=== PATIENT | female | born 1945 | race Caucasian/White ===

== ENCOUNTER 2017-01-21 11:02 | Outpatient (CLI) | payer MEDICARE ==
--- OUTSIDE RECORDS SUMMARY | 2017-01-21 11:09 | XMS | Clinical Summary ---
:1945 Author Organization [facility] Address [address] [place] [address] Phone Care Team Providers Name Role Phone , Primary Care Provider Unavailable Allergies Active Allergy Reactions Severity Noted Date Comments Vancomycin Analogues Hives High 06/19/2013 Valsartan 09/12/2014 Nsaids (Non-Steroidal 06/02/2013 History of decreased kidney Anti-Inflammatory Drug) function Current Medications Prescription Sig. Disp. Refills Start Date End Date Status amiodarone (PACERONE) Take 100 mg by Active 200 MG tablet mouth 2 (two) times daily . hydroxychloroquine Take by mouth 2 Active (PLAQUENIL) 200 mg (two) times daily. tablet pregabalin (LYRICA) 150 Take 150 mg by Active MG capsule mouth 2 (two) times daily. pantoprazole (PROTONIX) Take 40 mg by Active 40 MG tablet mouth 2 (two) times daily. topiramate (TOPAMAX) 25 Take 25 mg by Active MG tablet mouth 2 (two) times daily. DULoxetine (CYMBALTA) Take 60 mg by Active 60 MG capsule mouth nightly. albuterol, refill, 90 Inhale by mouth Active mcg/actuation Aero via inhaler. gabapentin (NEURONTIN) Take 600 mg by Active 600 MG tablet mouth 3 (three) times daily. clopidogrel (PLAVIX) 75 Take 75 mg by Active mg tablet mouth daily. promethazine Take 25 mg by Active (PHENERGAN) 25 MG mouth every 6 tablet (six) hours as needed for Nausea. cholestyramine, bulk, by Miscellaneous Active Powd route. temazepam (RESTORIL) 15 Take 1 capsule (15 30 capsule 0 05/29/2015 Active mg capsule mg total) by mouth every night as needed. ranolazine (RANEXA) 500 i po bid. 60 tablet 0 05/29/2015 Active MG 12 hr tablet linaclotide 145 mcg Cap Take 1 capsule 30 capsule 0 05/29/2015 Active (145 mcg total) by mouth every morning before breakfast. lamoTRIgine (LAMICTAL) 2 po bid. 120 tablet 0 05/29/2015 Active 25 MG tablet carvedilol (COREG) 12.5 Take 1 tablet 60 tablet 0 05/29/2015 Active MG tablet (12.5 mg total) by mouth 2 (two) times daily with breakfast and dinner. ALPRAZolam (XANAX) 1 MG Take 1 tablet (1 30 tablet 0 05/29/2015 Active tablet mg total) by mouth as needed for Anxiety. acetaZOLAMIDE (DIAMOX) Take 1 tablet (250 60 tablet 0 05/29/2015 Active 250 MG tablet mg total) by mouth 2 (two) times daily. DULoxetine (CYMBALTA) Take 1 capsule (30 30 tablet 2 08/20/2015 Active 30 MG capsule mg total) by mouth daily. azelastine (ASTEPRO) 2 sprays by Each 17 g 0 08/21/2015 Active 0.15 % (205.5 mcg) [place] Nare route 2 (two) times daily. 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 Lupus (systemic lupus erythematosus) ([facility]) Asthma CHF (congestive heart failure) ([facility]) MVP (mitral valve prolapse) TIA (transient ischemic attack) Overview: x 3 Hypertension Arthritis Chronic back pain DDD (degenerative disc disease) Encephalopathy Overview: every few years Migraines Peritonitis ([facility]) MRSA carrier Immunizations Name Dates Previously Given Next Due Influenza TIV (IM) 02/19/2014 Family History Medical History Relation Name Comments Hypertension Father Cancer Mother Hypertension Mother Stroke Mother Relation Name Status Comments Father Mother Social History Tobacco Use Types Packs/Day Years Used Date Never Smoker Smokeless Tobacco: Never Used Alcohol Use Drinks/Week oz/Week Comments No Sex Assigned at Date Recorded Not on file Last Filed Vital Signs Vital Sign Reading Time Taken Blood Pressure 150/94 08/21/2015 12:25 PM CDT Pulse 56 08/21/2015 12:25 PM CDT Temperature 36.3 C (97.3 F) 08/21/2015 12:25 PM CDT Respiratory Rate 18 08/21/2015 12:25 PM CDT Oxygen Saturation 98% 08/21/2015 12:25 PM CDT Inhaled Oxygen Concentration - - Weight 98.9 kg (218 lb) 08/21/2015 12:25 PM CDT Height 170.2 cm (5' 7") 08/21/2015 12:25 PM CDT Body Mass Index 34.14 08/21/2015 12:25 PM CDT Plan of Treatment Health Maintenance Due Date Last Done Comments INFLUENZA VACCINE 01/17/2017 Goals Patient Goal Type Goal Recent Progress Patient-Stated? Author Exercise Exercise 3x per week Not on No [place], (30 min per time) track(11/19/2014 Hardeep Shay MA High BMI Intervention ) and follow up (physical activity) Lifestyle Plan meals Not on No [place], High BMI Intervention track(11/19/2014 Hardeep Shay MA and Follow Up ) (nutrition) Implants Implanted Type Area Cheesemaker Helper Device Expiration Model / Identifier Date Serial / Lot Jeannette,#5 W/Needle - [id number] [place]/Ar ARTHREX [id number] / Implanted:Qty: 1 on 06/19/2013 throscopy / 2.9mm Juggerknot With Tapered [place] Fracture/ Right: [employer] [id number] / Implanted:Qty: 1 on 06/19/2013 by Campbell Gutierrez MD [employer] / [id number] Glenoid Baseplate,Rsp Hydroxyapatite-Coated 6.5x30mm - [id number] Joints Right : [employer] 04/18/2019 [id number] / Implanted:Qty: 1 on 06/19/2013 by Campbell Gutierrez MD Shoulder / [id number] Screw,Bone Glenoid Rsp Locking Baseplate 5.0x14mm - [id number] Joints Right: [employer] 05/18/2019 [id number] / Implanted:Qty: 1 on 06/19/2013 by Campbell Gutierrez MD Shoulder / [id number] Screw, Bone Glenoid Rsp Locking Baseplate 5.0x18mm Joints Right: [employer] 04/17/2019 506-03-118 / Implanted:Qty: 1 on 06/19/2013 by Campbell Gutierrez MD Shoulder / [id number] Screw, Bone Glenoid Rsp Locking Baseplate 5.0x18mm Joints Right: [employer] 06/16/2019 506-03-118 / Implanted:Qty: 1 on 06/19/2013 by Campbell Gutierrez MD Shoulder / [id number] Glenoid Head,Rsp W/Retaining Screw 32mm -4mm Offset - [id number] Joints Right: [employer] 06/16/2019 [id number] / Implanted:Qty: 1 on 06/19/2013 by Campbell Gutierrez MD Shoulder / [id number] Stem, Rsp Monoblock Size 8 Joints Right: 05/19/2019 [id number] / Implanted:Qty: 1 on 06/19/2013 by Campbell Gutierrez MD Shoulder / [id number] Hum Socket,Rsp Standard Insert 32mm - [id number] Joints Right: [employer] 05/19/2018 [id number] / Implanted:Qty: 1 on 06/19/2013 by Campbell Gutierrez MD Shoulder / [id number] Results Not on filefrom Last 3 Months
--- NOTE | 2017-01-21 12:49 | MMO ---
BILATERAL SCREENING MAMMOGRAMS: DATE: 01/21/17 Reference made to 05/13/15, 01/16/13, and 02/23/11 exams. This patient's mammogram was interpreted with the assistance of computer-aided detection. FINDINGS: There are scattered fibroglandular elements bilaterally. Partially imaged chest port of the posterio r left breast is present, obscuring detail in this region. There is benign-appearing calcification w ithin the breasts bilaterally. No new suspicious abnormalities are identified. IMPRESSION: BIRADS 2: Benign Finding(s) Annual screening mammography is recommended. POS: [facility]
== END 2017-01-21 11:03 | disposition home or self-care (01) ==
LOC: MAMMO 11:02
PROVIDERS: ATTEND Internal Medicine
DX: Z12.31 Encounter for screening mammogram for malignant neoplasm of breast (principal)
CPT/HCPCS: 77067; G0202

== ENCOUNTER 2017-02-18 09:49 | Outpatient (CLI) | payer MEDICARE ==
--- OUTSIDE RECORDS SUMMARY | 2017-02-18 10:43 | XMS | Clinical Summary ---
:1945 Author Organization [facility] Address [address] [place] [address] Phone Care Team Providers Name Role Phone [...] 0 08/21/2015 Active 0.15 % (205.5 mcg) [place] Nare route 2 (two) times daily. 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 Lupus (systemic lupus erythematosus) ([facility]) Asthma CHF (congestive heart failure) ([facility]) MVP (mitral valve prolapse) TIA (transient ischemic attack) Overview: x 3 Hypertension Arthritis Chronic back pain DDD (degenerative disc disease) Encephalopathy Overview: every few years Migraines Peritonitis ([facility]) MRSA carrier Immunizations Name Dates Previously Given [...] Exercise 3x per week Not on No [place], (30 min per time) track(11/19/2014 Hardeep Shay MA High BMI Intervention ) and follow up (physical activity) Lifestyle Plan meals Not on No [place], High BMI Intervention track(11/19/2014 Hardeep Shay MA and Follow Up ) (nutrition) Implants Implanted Type Area Prenatal Nurse Device Expiration Model / Identifier Date Serial / Lot Jeannette,#5 W/Needle - [id number] [place]/Ar [employer] [id number] / Implanted:Qty: 1 on 06/19/2013 throscopy / 2.9mm Juggerknot With Tapered [place] Fracture/ Right: [employer] [id number] / Implanted:Qty: 1 on 06/19/2013 by Campbell Gutierrez MD [employer] / [id number] Glenoid Baseplate,Rsp Hydroxyapatite-Coated 6.5x30mm - [id number] Joints Right : ORTHOPEDICS 04/18/2019 [id number] / Implanted:Qty: 1 on 06/19/2013 by Campbell Gutierrez MD Shoulder / [id number] Screw,Bone Glenoid Rsp Locking Baseplate 5.0x14mm - [id number] Joints Right: ORTH[employer] 05/18/2019 506-03-114 / Implanted:Qty: 1 on 06/19/2013 by Campbell Gutierrez MD Shoulder / [id number] Screw, Bone Glenoid Rsp Locking Baseplate 5.0x18mm Joints Right: ORTH[employer] 04/17/2019 506-03-118 / Implanted:Qty: 1 on 06/19/2013 by Campbell Gutierrez MD Shoulder / [id number] Screw, Bone Glenoid Rsp Locking Baseplate 5.0x18mm Joints Right: ORTH[employer] 06/16/2019 506-03-118 / Implanted:Qty: 1 on 06/19/2013 by Campbell Gutierrez MD Shoulder / [id number] Glenoid Head,Rsp W/Retaining Screw 32mm -4mm Offset - [id number] Joints Right: ORTHOPEDICS 06/16/2019 [id number] / Implanted:Qty: 1 on 06/19/2013 by Campbell Gutierrez MD Shoulder / [id number] Stem, Rsp Monoblock Size 8 Joints Right: 05/19/2019 510-00-008 / Implanted:Qty: 1 on 06/19/2013 by Campbell Gutierrez MD Shoulder / [id number] Hum Socket,Rsp Standard Insert 32mm - [id number] Joints Right: ORTHOPEDICS 05/19/2018 508-00-032 / Implanted:Qty: 1 on 06/19/2013 by Campbell Gutierrez MD Shoulder / [id number] Results Not on filefrom Last 3 Months
--- NOTE | 2017-02-18 12:16 | RAD ---
TWO VIEWS LUMBAR SPINE: 02/18/2017 HISTORY: Lumbar spondylolisthesis. Follow-up post-surgical changes. COMPARISON: 09/22/2016 FINDINGS: Again noted are post-surgical changes related to posterior fusion of the L4-5 level with bipedicular screws and posterior rods again transfixing this level. Intradiskal prosthesis is again noted in p lace and unchanged. There is persistent grade II anterolisthesis of L4 and L5, unchanged from prior study. There is irregularity and sclerosis involving the superior endplate of the L2 vertebral body which i s a stable finding and may be related to degenerative changes and possibly prominent Schmorl's node as opposed to a mild compression fracture. The remaining vertebral body heights are within normal l imits. No additional level of subluxation is seen. Laminectomy defect is again seen at the L4-5 le jacquelyn. Multiple metallic densities overlie the abdomen and pelvis related to prior post-surgical change. IMPRESSION: 1. Stable post-surgical changes at L4-5 level related to posterior fusion with stable grade II anter olisthesis of L4 and L5. No hardware complication is appreciated. 2. Stable degenerative changes of the lumbar spine. POS: [facility]
== END 2017-02-18 09:50 | disposition home or self-care (01) ==
LOC: TBSIIMAG 09:49
PROVIDERS: ATTEND Neurological Surgery
DX: M43.16 Spondylolisthesis, lumbar region (principal); M47.896 Other spondylosis, lumbar region; Z98.1 Arthrodesis status; I50.33 Acute on chronic diastolic (congestive) heart failure; I34.0 Nonrheumatic mitral (valve) insufficiency
CPT/HCPCS: 36415; 72100; 80053; 84443

== ENCOUNTER 2017-03-15 12:24 | Outpatient (CLI) | payer MEDICARE ==
[~2017-03-15 12:24] MED LIST: Iopamidol 370 76% 100 ML VIAL ONE
--- NOTE | 2017-03-15 18:56 | CT ---
CT ABDOMEN WITH AND WITHOUT IV CONTRAST: 03/15/2017 HISTORY: Follow-up right adrenal mass. COMPARISON: 04/06/2016. FINDINGS: Again noted is a right adrenal mass, unchanged in size, measuring approximately 2.5 cm. This demonst rates an attenuation coefficient on the noncontrasted images most compatible with an adrenal adenoma. Post-cholecystectomy changes are noted with mild intrahepatic biliary ductal dilatation likely relate d to the post-cholecystectomy changes. There are subcentimeter scattered hypodense lesions seen within each lobe of the liver, some of which measure slightly larger in size than on the prior study, but the majority of these measure less than 1 cm and may represent tiny cysts. There are stable subcentimeter too small to characterize hypodense lesions again seen in each kidney. The spleen, pancreas, and left adrenal gland demonstrate a normal nonenhanced CT appearance. The heart is mildly enlarged. There is minimal bibasilar atelectasis. There are metallic densities in the anterior aspect of the abdomen likely related to mesh material fr om prior surgery. An area of scarring is again seen in the right anterolateral aspect of the abdomen , also seen on prior exam. Vascular calcifications are present. Post-surgical changes of the spine are again noted. There has been no other interval change from prior study. IMPRESSION: 1. Stable right adrenal adenoma. 2. Subcentimeter, too small to characterize, hypodense lesions in each lobe of the liver, the majorit y of which are stable in size. A few of these low-density lesions are slightly larger in size, but a gain measure less than 1 cm. 3. Stable subcentimeter, too small to characterize, hypodense lesions in each kidney which statistica lly likely represent tiny cysts. 4. Post-cholecystectomy changes. 5. Cardiomegaly. POS: [facility]
== END 2017-03-15 12:25 | disposition home or self-care (01) ==
LOC: CT 12:24
PROVIDERS: ATTEND Urology
DX: E27.9 Disorder of adrenal gland, unspecified (principal); I51.7 Cardiomegaly; D35.01 Benign neoplasm of right adrenal gland; Z90.49 Acquired absence of other specified parts of digestive tract
CPT/HCPCS: 74170

== ENCOUNTER 2017-07-12 12:54 | Outpatient (CLI) | payer MEDICARE ==
[2017-07-12] MEDS ORDERED: Gadobenate Dimeglumine 529 MG/1 ML (20ML VIAL) ONE (14:36)
--- NOTE | 2017-07-12 18:12 | MRI ---
MRI OF BRAIN WITH AND WITHOUT CONTRAST: Date: 07/12/17 INDICATION: History of headaches and hydrocephalus. COMPARISON: None. CONTRAST: 20 mL MultiHance. FINDINGS: No area of restricted diffusion is seen to suggest the presence of acute ischemia. There is mild chronic small vessel white matter ischemic change. There is mild generalized cerebral a trophy. Septum pellucidum and third ventricle are midline. No hydrocephalus is grossly evident. There are appropriate flow-voids within the major intracranial vessels. Skull and extracranial soft tissue s appear within normal limits. IMPRESSION: 1. No acute intracranial abnormality demonstrated. 2. Mild chronic small vessel white matter ischemic change. 3. Mild generalized cerebral atrophy. POS: [facility]
== END 2017-07-12 12:55 | disposition home or self-care (01) ==
LOC: MRI 12:54
PROVIDERS: ATTEND Internal Medicine
DX: G91.9 Hydrocephalus, unspecified (principal); G31.9 Degenerative disease of nervous system, unspecified
CPT/HCPCS: 70553; 87077; 87086; 87186; A9579

== ENCOUNTER 2017-07-26 12:05 | Outpatient (CLI) | payer MEDICARE ==
[2017-07-26] MEDS ORDERED: Iopamidol 300 61% 30 ML VIAL ONE (13:00)
[2017-07-26] MEDS ORDERED: EPINEPHrine 1 MG/ML AMP ONE (13:00)
[2017-07-26] MEDS ORDERED: Lidocaine 1% PF 10 ML AMP ONE (13:00)
[2017-07-26] MEDS ORDERED: Sodium Chloride 0.9% 50 ML BAG ONE (13:00)
--- NOTE | 2017-07-26 16:01 | CT ---
CT ARTHROGRAM OF LEFT SHOULDER: Date: 07/26/17 INDICATION: 71-year-old female with left shoulder pain. TECHNIQUE: Multiple CT images were obtained of the left shoulder following interarticular administration of a di lute Gadolinium solution. Please see the left shoulder arthrogram for details concerning injection te chnique. FINDINGS: There is a left total shoulder prosthesis in place. The glenoid resurfacing prosthetic component appe ars in place. There is a full thickness, partial width tear involving the cranial and mid aspect of t he subscapularis. There is also a tear involving the anterior supraspinatus with contrast seen extend ing into the subacromial/subdeltoid space. There is moderate muscular atrophy of the supraspinatus. T here is moderate to severe muscular atrophy of the subscapularis. There is mild AC joint osteoarthros is. Long head of the biceps tendon is not seen and may be disrupted or resected. No acute fracture is demonstrated. There is a left subclavian chest wall port. No enlarged lymph nodes are evident. The v isualized left lung is clear. The visualized anterior band of the inferior glenoid labral ligamentous complex appears intact on image 64 of the coronal series. IMPRESSION: 1. Full thickness tear of the anterior to mid subscapularis at the footprint. There is likely tear e xtension into the anterior supraspinatus. There is moderate supraspinatus and subscapularis muscular atrophy. 2. Mild AC joint osteoarthrosis. 3. Left total shoulder prosthesis. POS: [facility]
--- NOTE | 2017-07-26 16:02 | RAD ---
LEFT SHOULDER ARTHROGRAM: INDICATIONS: Left shoulder pain. TECHNIQUE: Informed consent was obtained. Pre-procedure director of manufacturing images were performed of the left shoulder joint. The site overlying the left shoulder was marked. The site was prepped and draped in the usual ster ile fashion. Buffered 1% Lidocaine was administered to the overlying subcutaneous tissue. Under flu oroscopic guidance, a 22 gauge spinal needle was guided down into the joint, with administration of a pproximately 8 mL of a diluted Omnipaque solution. The patient tolerated the procedure without diffi culty. FINDINGS: There was a left total shoulder prosthesis in place. No acute fracture or subluxation was evident. There was mild left AC joint osteoarthrosis. The visualized left lung was clear. There was slight p osterior subluxation of the left shoulder on the axillary Y projection. IMPRESSION: 1. Successful left shoulder arthrogram. 2. Slight posterior subluxation of the left shoulder on the axillary Y projection. 3. Mild left acromioclavicular joint osteoarthrosis. POS: [facility]
== END 2017-07-26 12:06 | disposition home or self-care (01) ==
LOC: RAD 12:05
PROVIDERS: ATTEND Orthopaedic Surgery
DX: M25.512 Pain in left shoulder (principal); M19.012 Primary osteoarthritis, left shoulder
CPT/HCPCS: 23350; J0171; J7050

== ENCOUNTER 2017-12-03 12:47 | Outpatient (CLI) | payer MEDICARE ==
[2017-12-03 15:15] LABS: Hemoglobin 12.1 g/dL (12.0-16.0); Mean Corpuscular HGB CONC 31.7 g/dL (32.0-36.0); Mean Corpuscular Hemoglobin 29.2 pg (27.0-31.0); Mean Corpuscular Volume 92.1 fL (78.0-98.0); Mean Platelet Volume 8.2 fL (7.4-10.4); Platelet Count 180 thou/uL (130-400); RBC Distribution Width 13.7 % (11.5-14.5); Red Blood Cell (RBC) Count 4.14 mill/uL (4.20-5.40); White Blood Cell (WBC) Count 5.4 thou/uL (4.8-10.8)
[2017-12-03 15:22] LABS: Bilirubin Small (Negative); Blood, Urine Negative (Negative); Clarity TURBID (Clear); Glucose, Urine (Dipstick) Negative (Negative); Leukocyte Large (Negative); Nitrite Negative (Negative); Protein, Urine (Dipstick) 30 mg/dL (Neg-Trace); Specific Gravity, Urine 1.025 (1.002-1.036); pH, Urine 5.5 (5.0-9.0)
[2017-12-03 15:24] LABS: Bacteria/HPF 4+ HPF (None Seen)
[2017-12-03 15:28] LABS: Pathc Cast-AUWi Flag 16.62 (0-2.49)
[2017-12-03 15:35] LABS: Anion Gap 11 mmol/L (10-20); BUN (Urea Nitrogen) 15 mg/dL (9.8-20.1); CRP (Inflammatory) 1.15 mg/dL (= or < 0.5); Calc. Creatinine Clearance 0 mL/min (70-130); Carbon Dioxide 20 mmol/L (23-31); Chloride 114 mmol/L (98-107); Estimated GFR-MDRD 59; Glucose 89 mg/dL (83-110); Potassium 3.4 mmol/L (3.5-5.1); Sodium 142 mmol/L (136-145)
[2017-12-03 15:36] LABS: RBC/HPF None Seen HPF (0-3)
[2017-12-03 15:37] LABS: Hyaline Casts/LPF 0-3 HYALINE CAST LPF (0-3 Hyaline); Manual Microscopic Reviewed? No Path Casts Seen
--- NOTE | 2017-12-04 05:17 | EKG ---
Test Reason : Blood Pressure : / mmHG Vent. Rate : 063 BPM Atrial Rate : 063 BPM P-R Int : 186 ms QRS Dur : 080 ms QT Int : 424 ms P-R-T Axes : 075 011 002 degrees QTc Int : 433 ms Sinus rhythm with Premature atrial complexes Minimal voltage criteria for LVH, may be normal variant Inferior infarct , age undetermined possibly with Q's Lead III and aVF, but doubtful. Cannot rule out Anterior infarct , age undetermined Abnormal ECG When compared with ECG of 17-DEC-2016 06:32, Premature atrial complexes are now Present Inferior infarct is now Present Nonspecific T wave abnormality now evident in Anterior leads Confirmed by ARDEN PARADA ([id number]) on 12/04/2017 5:16:35 AM Referred By: EMY Confirmed By:ARDEN PARADA
== END 2017-12-03 12:48 | disposition home or self-care (01) ==
LOC: LABBT 12:47
PROVIDERS: ATTEND Orthopaedic Surgery
DX: Z01.818 Encounter for other preprocedural examination (principal); T84.098A Other mechanical complication of other internal joint prosthesis, initial encounter
CPT/HCPCS: 80048; 81001; 85027; 85652; 86140; 86850; 86900; 86901; 87081; 93005; 93010

== ENCOUNTER 2017-12-03 13:15 | Inpatient (IN) | payer MEDICARE ==
[2017-12-03 13:28] VITALS: BMI 33.6
[2017-12-07] MEDS ORDERED: Midazolam HCl 2 mg/2 ml Vial ONE (06:19)
[2017-12-07] MEDS ORDERED: Lidocaine 1% (PF) 30 ML VIAL ONE (06:19)
[2017-12-07] MEDS ORDERED: Ropivacaine 0.2% HCl/PF 20 ML ONE (06:19)
[2017-12-07] MEDS ORDERED: Fentanyl 100 MCG/2 ML VIAL ONE ×2 (06:19→06:58)
[2017-12-07] MEDS ORDERED: Levofloxacin 500 mg/D5W 100 ml Premix Bag ONE (06:36)
[2017-12-07] MEDS ORDERED: CEFAZOLIN/Water 2 GM/20 ML SYRINGE ONE (06:36)
[2017-12-07] MEDS ORDERED: Sodium Chloride 0.9% 100 ML ONE (06:36)
[2017-12-07] MEDS ORDERED: Vancomycin HCl 1.5 GM in Sodium Chloride 0.9% 250 ML 300 ML IVPB SCH ×2 (06:45→20:00)
[2017-12-07] MEDS ORDERED: Ondansetron HCl/PF 4 MG/2 ML Vial IVP PRN ×3 (07:01→10:53)
[2017-12-07] MEDS ORDERED: PHENYLEPHRINE-NS 100 MCG/ML 10 ML SYRINGE ONE ×2 (07:33→14:42)
[2017-12-07] MEDS ORDERED: Phenylephrine HCL 10 MG/ML VIAL ONE (07:35)
[2017-12-07] MEDS ORDERED: HYDROcodone/Acetaminophen 10/325 mg Tablet PO PRN ×4 (07:45→10:53)
[2017-12-07] MEDS ORDERED: Zolpidem Tartrate 5 MG TAB PO PRN (07:45)
[2017-12-07] MEDS ORDERED: Ropivacaine HCl/PF 1,100 MG in Sodium Chloride 0.9% 440 ML NERVE BLCK SCH (07:45)
[2017-12-07] MEDS ORDERED: traMADol HCl 50 MG TAB PO PRN ×4 (07:45→10:53)
[2017-12-07] MEDS ORDERED: Promethazine HCl 25 MG/ML VIAL IM PRN (07:45)
[2017-12-07] MEDS ORDERED: Fentanyl 100 MCG/2 ML VIAL IV PRN (07:46)
[2017-12-07] MEDS ORDERED: Ropivacaine 0.2% 550 ML 550 ML NERVE BLCK SCH (09:34)
--- NOTE | 2017-12-07 10:03 | OP ---
DATE OF PROCEDURE: 12/07/2017 PREOPERATIVE DIAGNOSES: Right total shoulder arthroplasty with rotator cuff tear, status post fall. POSTOPERATIVE DIAGNOSES: Right total shoulder arthroplasty with rotator cuff tear, status post fall. PROCEDURE PERFORMED: Revision reverse total shoulder arthroplasty, both components humerus and glenoid. STAFF: Raymond Barrow M.D. DUST COLLECTOR TREATER: Ricky Yuan PA-C ANESTHESIA: The patient received a general intubation with interscalene block. ESTIMATED BLOOD LOSS: 100 mL. TOURNIQUET TIME: None. IMPLANTS: A threaded 25 mm baseplate with a 30 mm post, Tornier a 4 locking screws, 29, 20, 32 and 20 respectively. A 36 mm +2 eccentric glenosphere and + 0 high offset tray and a 6 mm C poly. COMPLICATIONS: None. HISTORY OF PRESENT ILLNESS: Ms. Fisher is a pleasant 72-year-old female who had a total shoulder arthroplasty in 04/2016. The patient was doing well until she fell on her shoulder in 08/2016. The pain was waking her up at night. She had a CT scan showing a tear of her rotator cuff and I had discussed with the patient the risks and benefits of a revision total shoulder arthroplasty to reverse shoulder arthroplasty. I discussed the risks and benefits of surgery to include pain, scar, bleeding, infection, damage to vital structures, decreased range of motion or strength, nonunion, malunion, and loss of life or limb. The patient understood these risks and benefits and elected to proceed. PROCEDURE IN DETAIL: Timeout was performed designating the patient's left upper extremity as the operative site based on sight, consents, markings. After completion of timeout, the patient's left upper extremity was prepped and draped in sterile fashion. The patient was placed in a beach chair position. She had a little bit of low blood pressures during the procedure. We positioned her into place. We made our subacromial, we set our deltopectoral incision through the previous scar incision down through skin, followed the scar plane down, could not distinguish a very good deltopectoral interval, but went through what appeared to be the scar plane, created an interval, came down, found the conjoint medially, came down on the head, saw the torn subscapularis, removed the sutures from it. We came down bluntly over the humerus to create a subdeltoid space. We removed some of the subscap. The biceps was cut from its insertion, removed all of its osteophytes. We exposed the humeral head. We then used a tuning fork to knock the humeral head off, the stem appeared stable. We then exposed our glenoid component. We used a small osteotome to cut the glenoid component to lever the glenoid component. I had to cut through the single baseplate, but otherwise 3 of the pegs were out. We removed the center peg of the glenoid by overdrilling it. We then drilled our hole for our baseplate, drilled and measured about 26 and placed a 30 mm baseplate. I felt like I had good overall fixation with our angle, measured about 28 and we placed a 30 mm baseplate. We screwed it down, had nice firm stable fixation with a 30 baseplate. We then placed screws, 4 locking screws anterior, posterior, superior and inferiorly trying to stay away from the inferior aspect. We washed. We placed 2 mm offset glenosphere which set flush on the bone. I liked the overall alignment, had good external fixation. We then moved back to the humerus. We cleaned off the stem. We trialed with a high offset tray with a 6 point position, I and 6 mm C poly and it reduced well. I liked the overall alignment, had no shucking, good stability. We removed all the excess implants. We then reduced the shoulder into place and placed our final implants and hammered in the [place] taper, placed our poly and reduced, had a good overall stability. We then closed deltopectoral interval with 0 Vicryl, 2-0 subcu and sakina. The patient will be admitted for 24 hours of antibiotics. She will continue her ciprofloxacin given her current UTI. She will be followed. She can be discharged likely home tomorrow, remain in a sling. Elbow, wrist, and hand motion only, no shoulder motion until I release her. [facility]
--- NOTE | 2017-12-07 10:09 | RAD ---
LEFT SHOULDER 2 VIEWS: HISTORY: Shoulder replacement. FINDINGS: Reverse prosthesis in place without perihardware lucency. Skin sakina. Osseous structures are karne neralized. IMPRESSION: Left shoulder prosthesis in good radiographic position. POS: [facility]
[2017-12-07] MEDS ORDERED: Bisacodyl 10 MG SUPP PR PRN (10:53)
[2017-12-07] MEDS ORDERED: Ondansetron ODT 4 MG TAB PO PRN (10:53)
[2017-12-07] MEDS ORDERED: Acetaminophen 325 MG TAB PO PRN (10:53)
[2017-12-07] MEDS ORDERED: diphenhydrAMINE 50 MG CAP PO PRN (10:53)
[2017-12-07] MEDS ORDERED: Methocarbamol 1 GM/10 ML VIAL SLOW IVP PRN (10:53)
[2017-12-07] MEDS ORDERED: Milk Of Magnesia 30 ML UDCUP PO PRN (10:53)
[2017-12-07] MEDS ORDERED: Methocarbamol 500 MG TAB PO PRN (10:53)
[2017-12-07] MEDS ORDERED: Opium Tincture 10% (1ml Charge) PO PRN (11:56)
[2017-12-07] MEDS ORDERED: Cyanocobalamin 1000 MCG/ML VIAL IM SCH (12:00)
[2017-12-07] MEDS ORDERED: Ropivacaine 0.5% HCl/PF (150 MG/30 ML VIAL) ONE (13:11)
[2017-12-07] MEDS ORDERED: Lidocaine 1% PF 5 ML VIAL ONE (14:42)
[2017-12-07] MEDS ORDERED: Calcium Chloride 1 GM/10 ML Abboject SYRINGE ONE (14:42)
[2017-12-07] MEDS ORDERED: Glycopyrrolate 0.2 MG/ML 5 ML SYRINGE ONE (14:42)
[2017-12-07] MEDS ORDERED: PROPOFOL 200 MG/20 ML VIAL ONE (14:42)
[2017-12-07] MEDS ORDERED: Ondansetron HCl/PF 4 MG/2 ML Vial ONE (14:42)
[2017-12-07] MEDS ORDERED: ePHEDrine/0.9% NaCl/PF SYRINGE 50 mg/10 ml ONE (14:42)
[2017-12-07] MEDS: CEFAZOLIN/Water 2 GM/20 ML SYRINGE SLOW IVP SCH ×2 (15:26→21:29)
[2017-12-07] MEDS: Dextrose 5 %-0.45 % NaCl 1,000 ML IV SCH (15:32)
[2017-12-07] MEDS: Ciprofloxacin 500 MG TAB PO SCH (20:31)
[2017-12-07] MEDS: AcetaZOLAMIDE 250 MG TAB PO SCH (20:32)
[2017-12-07] MEDS: Carvedilol 6.25 MG TAB PO SCH (20:32)
[2017-12-07] MEDS: Hydroxychloroquine Sulfate 200 MG TAB PO SCH (20:33)
[2017-12-07] MEDS: Pregabalin 75 MG CAP PO SCH (20:34)
[2017-12-07] MEDS: Topiramate 25 MG TAB PO SCH (20:35)
[2017-12-07] MEDS ORDERED: DULoxetine 60 MG CAP PO SCH (21:00)
[2017-12-08] MEDS: Dextrose 5 %-0.45 % NaCl 1,000 ML IV SCH (04:06)
[2017-12-08] MEDS: Ciprofloxacin 500 MG TAB PO SCH (05:48)
[2017-12-08 08:20] VITALS: BP 108/72
[2017-12-08] MEDS: Carvedilol 6.25 MG TAB PO SCH (08:58)
[2017-12-08] MEDS: Pregabalin 75 MG CAP PO SCH (08:58)
[2017-12-08] MEDS: Hydroxychloroquine Sulfate 200 MG TAB PO SCH (08:59)
[2017-12-08] MEDS: AcetaZOLAMIDE 250 MG TAB PO SCH (08:59)
[2017-12-08] MEDS: Topiramate 25 MG TAB PO SCH (08:59)
[2017-12-08] MEDS ORDERED: DULoxetine 30 MG CAP PO SCH (09:00)
[2017-12-08] MEDS ORDERED: Lisinopril 2.5 MG TAB PO SCH (09:00)
[2017-12-08] MEDS ORDERED: Clopidogrel Bisulfate 75 MG TAB PO SCH (09:00)
[2017-12-08 10:57] VITALS: TEMP 98.3
--- NOTE | 2017-12-10 15:00 | EKG ---
Test Reason : POST OP Blood Pressure : / mmHG Vent. Rate : 076 BPM Atrial Rate : 076 BPM P-R Int : 176 ms QRS Dur : 074 ms QT Int : 402 ms P-R-T Axes : 081 011 030 degrees QTc Int : 452 ms Normal sinus rhythm Normal ECG When compared with ECG of 03-DEC-2017 14:36, Premature atrial complexes are no longer Present Criteria for Inferior infarct are no longer Present Nonspecific T wave abnormality has replaced inverted T waves in Inferior leads T wave amplitude has decreased in Lateral leads Confirmed by SATHISH LINN MD ([id number]) on 12/10/2017 3:00:10 PM Referred By: ROSA Confirmed By:SATHISH LINN MD
== END 2017-12-08 14:01 | disposition home or self-care (01) | DRG 483 ==
LOC: SURG A 12-07 05:39 → SJJU 12-07 10:50 → EDSTATUS 12-07 13:15
PROVIDERS: ADMIT Orthopaedic Surgery; ATTEND Orthopaedic Surgery
PROC: 0RRJ0JZ Replacement of Right Shoulder Joint with Synthetic Substitute, Open Approach (ICD-10-PCS; principal; 2017-12-07)
PROC: 0RPJ0JZ Removal of Synthetic Substitute from Right Shoulder Joint, Open Approach (ICD-10-PCS; 2017-12-07)
DX: S46.011A Strain of muscle(s) and tendon(s) of the rotator cuff of right shoulder, initial encounter (principal); Z96.612 Presence of left artificial shoulder joint; W19.XXXA Unspecified fall, initial encounter
CPT/HCPCS: 93005; 93010; A4306; C1713; G8978-GP-CI; G8979-GP-CI; G8980-GP-CI; G8984-GO-CJ; G8985-GO-CJ; G8986-GO-CJ; J1956; J2001; J2250; J2370; J2405; J2704; J2795; J3010; J3370; J7050

== ENCOUNTER 2018-04-07 10:28 | Outpatient (CLI) | payer MEDICARE ==
--- NOTE | 2018-04-07 12:38 | ULT ---
RIGHT UPPER QUADRANT ULTRASOUND: HISTORY: Transaminitis. FINDINGS: The liver demonstrate a homogeneous echotexture without focal mass. There is mild intrahepatic bilia ry ductal dilatation. The common duct measures 7 mm in diameter. Prominent biliary ducts in the che er are also seen on the CT scan of 03/15/2017 and are likely due to reservoir effect. The pancreas i s not well visualized due to overlying bowel gas. There is a prominent right extrarenal pelvis. No free fluid is seen in the [place] pouch. The right adrenal mass is seen, which corresponds to the a denoma on the CT scan of 03/15/2017. IMPRESSION: Status post cholecystectomy with mild intrahepatic biliary ductal dilatation, likely due to reservoir effect. POS: [facility]
== END 2018-04-07 10:29 | disposition home or self-care (01) ==
LOC: BICULT 10:28
PROVIDERS: ATTEND Internal Medicine
DX: R74.0 Nonspecific elevation of levels of transaminase and lactic acid dehydrogenase [LDH] (principal); K83.8 Other specified diseases of biliary tract; Z90.49 Acquired absence of other specified parts of digestive tract
CPT/HCPCS: 76705

== ENCOUNTER 2018-05-02 12:39 | Outpatient (CLI) | payer MEDICARE | END 2018-05-02 12:40 | disposition home or self-care (01) | LOC: BICMAMMO 12:39 | PROVIDERS: ATTEND Internal Medicine | DX: Z12.31 Encounter for screening mammogram for malignant neoplasm of breast (principal); N64.89 Other specified disorders of breast; R92.1 Mammographic calcification found on diagnostic imaging of breast; Z80.3 Family history of malignant neoplasm of breast | CPT/HCPCS: 77063; 77067 ==

== ENCOUNTER 2018-05-04 12:37 | Outpatient (CLI) | payer MEDICARE ==
--- NOTE | 2018-05-04 15:16 | ULT ---
LEFT BREAST ULTRASOUND: HISTORY: The patient presents for a left breast ultrasound to further evaluate an asymmetric density seen in t he inner aspect of the left breast. In the 9 o'clock region of the left breast approximately 6 cm from the nipple, there is a small 0.2 x 0.6 cm somewhat poorly defined hyperechoic focus. I do not think that this corresponds to the mammo graphic finding. Hyperechoic foci within the breast are benign. There were also some slightly dilat ed veins in this region of the left breast. The asymmetric density in the left breast actually appea red to be less prominent on the diagnostic imaging exams done today compared to the initial screening study of 05/02/2018. It is not seen at all on the mediolateral view and poorly seen on the MLO view. IMPRESSION: BIRADS category 3 - probably benign findings. Asymmetric density seen primarily on the CC view in th e left breast inner aspect not seen at all on the ML view, poorly seen on the MLO view. Given its ap pearance on mammogram and the lack of significant abnormal findings on ultrasound study in this regio n, 6-month followup left unilateral diagnostic mammogram is recommended. An ultrasound exam should b e scheduled at the same time and performed if needed. Findings were discussed with the patient who was in agreement with proceeding to 6-month short-term s urveillance followup. CODE CR POS: OFF
== END 2018-05-04 12:38 | disposition home or self-care (01) ==
LOC: BICMAMMO 12:37
PROVIDERS: ATTEND Internal Medicine
DX: R92.2 Inconclusive mammogram (principal); N64.89 Other specified disorders of breast; Z80.3 Family history of malignant neoplasm of breast
CPT/HCPCS: 76642; 77065; G0279

== ENCOUNTER 2018-05-25 13:15 | Outpatient (CLI) | payer MEDICARE ==
--- NOTE | 2018-05-25 15:54 | CT ---
CT OF ABDOMEN AND PELVIS PERFORMED WITH INTRAVENOUS CONTRAST ENHANCEMENT: History: Chronic diarrhea. Right lower quadrant pain. Comparison: 03-15-17 FINDINGS: The lung bases are clear of infiltrates. Some linear scarring is present. Stable hypodensities within the liver are again demonstrated. The spleen and pancreas regions are unremarkable. The gallbladder has been removed. A 2.5 cm stable right adrenal mass, most likely an adenoma. Left adrenal gland is normal. Right and l eft kidneys are normal in size. Both kidneys have somewhat prominent extrarenal pelves but this a sta ble finding. There is no significant periaortic or mesenteric adenopathy. Post-operative changes with mesh related to a ventral hernia repair are noted. There is some mild dilatation to some of the more distal small bowel. This is more in the distal ileum region although there is some narrowing to the ileum right at the ileocecal valve. I cannot exclude this being a very short segment area of strictur e narrowing. This dilatation is a different appearance than has been seen on previous exams. I do not appreciate any wall thickening associated with this. The more proximal small bowel does not appear s ignificantly dilated. No free fluid seen within the pelvis. No significant adenopathy or mass. IMPRESSION: 1. Stable right adrenal adenoma. 2. Stable hepatic cyst. 3. Post-operative changes of the anterior abdominal wall which appears to be related to ventral herni a repair. 4. There is some mild dilatation of the distal ileum to the level of the ileocecal valve. There is no bowel wall thickening associated with this. I do not see a definitive stricture although there could be a short segment stricture to the terminal ileum directly at the level of the ileocecal valve to e xplain this finding. It is also possible that this transitory in nature. POS: [facility]
== END 2018-05-25 13:16 | disposition home or self-care (01) ==
LOC: BICCT 13:15
PROVIDERS: ATTEND Internal Medicine Gastroenterology
DX: D12.6 Benign neoplasm of colon, unspecified (principal); R10.31 Right lower quadrant pain; R94.5 Abnormal results of liver function studies; K52.9 Noninfective gastroenteritis and colitis, unspecified; D35.01 Benign neoplasm of right adrenal gland; K76.89 Other specified diseases of liver; K59.8 Other specified functional intestinal disorders; Z98.890 Other specified postprocedural states
CPT/HCPCS: 74177; 81001; 87077; 87086; 87186; Q9967

== ENCOUNTER 2018-07-11 14:06 | Outpatient (CLI) | payer MEDICARE ==
[~2018-07-11 14:06] MED LIST changes: +Gadobenate Dimeglumine 529 MG/1 ML (20ML VIAL) ONE; -Iopamidol 370 76% 100 ML VIAL ONE
--- NOTE | 2018-07-11 17:07 | MRI ---
MRI BRAIN WITH AND WITHOUT CONTRAST: Technique: Multiplanar, multisequence MRI images were obtained of the brain. Post contrast images wer e also obtained after administrating IV MultiHance. Indications: Headache, memory loss. FINDINGS: The ventricles have normal size and position. There are mild chronic ischemic white matter changes. N o evidence of restricted diffusion. No evidence of mass or edema. No abnormal enhancement. IMPRESSION: 1. Mild chronic ischemic white matter change. 2. Otherwise no acute process. POS: MIK[facility]
== END 2018-07-11 14:07 | disposition home or self-care (01) ==
LOC: SCSMRI 14:06
PROVIDERS: ATTEND Nurse Practitioner Acute Care
DX: R51 Headache (principal); I67.82 Cerebral ischemia
CPT/HCPCS: 70553; 82565; A9577

== ENCOUNTER 2018-10-05 15:29 | Outpatient (CLI) | payer MEDICARE ==
--- NOTE | 2018-10-05 16:06 | RAD ---
CERVICAL SPINE 3 VIEWS: HISTORY: Neck pain. FINDINGS: Multilevel degenerative changes are present. No fracture, subluxation, or bony destruction is identi fied. IMPRESSION: Cervical spondylosis. POS: MIK[facility]LA
== END 2018-10-05 15:30 | disposition home or self-care (01) ==
LOC: BICRAD 15:29
PROVIDERS: ATTEND Internal Medicine
DX: M54.2 Cervicalgia (principal); M47.812 Spondylosis without myelopathy or radiculopathy, cervical region
CPT/HCPCS: 72040; 87086

== ENCOUNTER 2018-10-14 13:29 | Outpatient (CLI) | payer MEDICARE ==
--- NOTE | 2018-10-14 15:39 | MRI ---
CERVICAL SPINE MRI WITHOUT CONTRAST: 10/14/18 HISTORY: Neck pain with left sided radiculopathy, x3 weeks. Left shoulder pain. COMPARISON: None. FINDINGS: Appropriate T1 marrow signal intensity of the cervical vertebrae. Cervical spine vertebral body heigh t is maintained. No fracture. No significant STIR hyperintensity to suggest vertebral body edema or l igamentous injury. The visualized brain parenchyma, cervicomedullary junction, cervical cord and the upper thoracic cord have a normal size and signal intensity. Sagittal T2 and STIR images demonstrate a hyperintense focus in the right neural foramen at T1-T2. Th ere is T1 marrow signal hypointensity. Possibility of a perineural sleeve cyst is raised. There is a similar finding at the right T2-T3 neural foramen. The visualized brain parenchyma, cervicomedullary junction, cervical cord and the upper thoracic cord have a normal size and signal intensity. C2-C3: No significant central canal stenosis. Neural foramina are patent. C3-C4: Broad based disc bulge with a left paracentral component. No significant central canal stenosi s. Right neural foramen is patent. Mild left foraminal narrowing due to uncovertebral hypertrophy. C4-C5: Broad based disc osteophyte complex abuts the thecal sac. Ventral subarachnoid space is efface d. There is deformity of the cervical cord, without cord hyperintensity. Moderate central canal steno sis. Degenerative changes in the bilateral uncovertebral joints results in moderate to severe bilater al foraminal narrowing. C5-C6: There is a broad based disc osteophyte complex which effaces the subarachnoid space. There is mass effect upon the left hemicord. Mild to moderate central canal stenosis. No cord hyperintensity. Mild to moderate right foraminal narrowing. Moderate to severe left foraminal narrowing. C6-C7: Broad based disc osteophyte complex with a left paracentral component. Mild central canal sten osis. Minimal deformity of the cervical cord, without hyperintensity in the cord. Mild right and mild to moderate left foraminal narrowing. C7-T1: No significant central canal stenosis. Neural foramina are patent. IMPRESSION: Degenerative changes in the cervical spine as detailed above. POS: [facility]
== END 2018-10-14 13:30 | disposition home or self-care (01) ==
LOC: BICMRI 13:29
PROVIDERS: ATTEND Internal Medicine
DX: M47.22 Other spondylosis with radiculopathy, cervical region (principal)
CPT/HCPCS: 72141; 87086

== ENCOUNTER 2018-12-27 10:25 | Outpatient (CLI) | payer MEDICARE ==
--- NOTE | 2018-12-27 11:35 | MMO ---
Left Breast MAMMO Unilat Diag DDI LT+MAGDALENA. CLINICAL HISTORY: Patient is 73 years old and is seen for diagnostic exam. The patient has the following family history of breast cancer: mother, at age 86. The patient has no personal history of cancer. VIEWS: The views performed were: left craniocaudal with tomosynthesis; left mediolateral oblique with tomosynthesis; and left mediolateral with tomosynthesis. FILMS COMPARED: The present examination has been compared to prior imaging studies performed at [facility] on 05/02/2018, 05/04/2018 and 12/27/2018. MAMMOGRAM FINDINGS: There are scattered fibroglandular densities. There is a stable equal density focal asymmetry measuring 6 millimeters seen in the middle region of the left breast at 9 o'clock. Additional attempt was made to locate the lesion by sonogram which proved unfruitful. IMPRESSION: STABLE FOCAL ASYMMETRY IN THE LEFT BREAST IS PROBABLY BENIGN. FOLLOW-UP IN 6 MONTHS IS RECOMMENDED. PATIENT WILL BE DUE FOR BILATERAL DIAGNOSTIC MAMMOGRAM IN APR 2019. ULTRASOUND OF THE LEFT BREAST IS NOT RECOMMENDED NO SONOGRAPHIC CORRELATE FOR THIS LESION COULD BE FOUND ON TODAY'S EXAM AND ON THE INITAL DIAGNOSTIC EVALUATION IN APR 2018. THE FINDINGS AND RECOMMENDATIONS WERE DISCUSSED WITH THE PATIENT PRIOR TO HER LEAVING THE CENTER. THE RESULTS OF THIS EXAM WERE SENT TO THE PATIENT. ACR BI-RADS Category 3 - Probably benign finding - short interval follow-up suggested. [facility] will notify the patient of the need for additional imaging services. MAMMOGRAPHY NOTE: 1. A negative mammogram report should not delay a biopsy if a dominant of clinically suspicious mass is present. 2. Approximately 10% to 15% of breast cancers are not detected by mammography. 3. Adenosis and dense breasts may obscure an underlying neoplasm. Reported by: CACHORRO GRANDE MD Electonically Signed: [id number]
--- NOTE | 2018-12-27 13:34 | ULT ---
LEFT BREAST DIAGNOSTIC ULTRASOUND: 12/27/18 INDICATION: BI-RADS 3 follow-up for a focal asymmetry in the left breast 9 o'clock position. COMPARISON: Prior left breast diagnostic ultrasound dated 05/04/18. FINDINGS: No suspicious sonographic abnormality is seen within the region of focal asymmetry in the left breast 9 o'clock position. IMPRESSION: No suspicious sonographic abnormality seen within the region of focal asymmetry left breast 9 o'clock position. Please see the diagnostic mammographic report from 12/27/18 for further detail. POS: OFF
== END 2018-12-27 10:26 | disposition home or self-care (01) ==
LOC: BICMAMMO 10:25
PROVIDERS: ATTEND Internal Medicine
DX: R92.8 Other abnormal and inconclusive findings on diagnostic imaging of breast (principal); N64.89 Other specified disorders of breast
CPT/HCPCS: 76642; 77065; G0279

== ENCOUNTER 2019-02-25 10:40 | Emergency (ER) | payer MEDICARE ==
[2019-02-25 11:57] LABS: Bacteria/HPF 1+ HPF (None Seen); Bilirubin Negative (Negative); Blood, Urine Negative (Negative); Clarity Clear (Clear); Glucose, Urine (Dipstick) Normal (Negative); Leukocyte 250 Leu/uL (Negative); Nitrite 1+ (Negative); Protein, Urine (Dipstick) Negative (Neg-Trace); RBC/HPF 0-3 HPF (0-3); Urobilinogen Normal mg/dL (Less than 2)
[2019-02-25 12:48] LABS: #Basophils 0.1 thou/uL (0.0-0.2); #Eosinphils 0.2 thou/uL (0.0-0.7); #Lymphocytes 1.2 thou/uL (1.20-3.40); #Monocytes 0.4 thou/uL (0.11-0.59); #Neutrophils 4.6 thou/uL (1.40-6.50); %Basophils 1.1 % (0.0-1.0); %Eosinophils 3.4 % (0.0-10.0); %Monocytes 6.5 % (0.0-10.0); %Neutrophils 71.1 % (42.0-75.0); Hemoglobin 10.8 g/dL (12.0-16.0); Mean Corpuscular HGB CONC 31.1 g/dL (32.0-36.0); Mean Corpuscular Hemoglobin 28.3 pg (27.0-31.0); Mean Corpuscular Volume 90.9 fL (78.0-98.0); Mean Platelet Volume 7.8 fL (7.4-10.4); Platelet Count 288 thou/uL (130-400); RBC Distribution Width 14.8 % (11.5-14.5); Red Blood Cell (RBC) Count 3.81 mill/uL (4.20-5.40); White Blood Cell (WBC) Count 6.5 thou/uL (4.8-10.8)
[2019-02-25 13:09] LABS: ALT (SGPT) 12 U/L (8-55); AST (SGOT) 19 U/L (5-34); Albumin 3.2 g/dL (3.4-4.8); Alkaline Phosphatase 98 U/L (40-110); Anion Gap 12 mmol/L (10-20); BUN (Urea Nitrogen) 10 mg/dL (9.8-20.1); Bilirubin, Total 0.2 mg/dL (0.2-1.2); Calc. Creatinine Clearance 0 mL/min (70-130); Calcium 8.9 mg/dL (7.8-10.44); Carbon Dioxide 23 mmol/L (23-31); Chloride 109 mmol/L (98-107); Estimated GFR-MDRD 64; Globulin 3.4 g/dL (2.4-3.5); Glucose 84 mg/dL (83-110); Potassium 4.3 mmol/L (3.5-5.1); Protein, Total 6.6 g/dL (6.0-8.3); Sodium 140 mmol/L (136-145)
[2019-02-25] MEDS ORDERED: cefTRIAXone\\ROCEPHIN 2 GM VIAL ONE (13:46)
--- NOTE | 2019-02-25 14:56 | CT ---
EXAM: Abdomen and pelvic CT scan with contrast: HISTORY: Abdominal pain recent anterior abdominal wall surgery COMPARISON: 05/25/2018 FINDINGS: The visualized lung bases are clear. Liver: Stable liver cysts. Gallbladder:Status post cholecystectomy. Pancreas:Unremarkable Spleen:Unremarkable. Adrenal glands:Stable right adrenal mass probably an adenoma. Kidneys:No renal calculus or acute obstruction. Stable bilateral renal parapelvic cysts. Laminectomy changes posterior fusion and pedicle screw placement at L4-L5 with associated stable ante rolisthesis. No evidence for bowel obstruction. No CT evidence for acute appendicitis. The urinary bladder contains a fairly large amount of air and is not distended. Recent postsurgical changes involving the anterior abdominal wall with some midline subcutaneous flui d and air including a slightly more focal collection at the level the umbilicus superficially measuring 2.0 transversely, 3.8 cm in anterior posterior dimension and 5.6 cm in craniocaudal dimensi on evidence for postop fluid collection. Reproductive system:Unremarkable No abscess, adenopathy, or abnormal fluid collection within the abdomen or pelvis. IMPRESSION: Recent postop changes involving the anterior abdominal wall with some subcutaneous air and fluid incl uding a 2 x 3.8 x 5.6 cm superficial subcutaneous fluid collection.
[2019-02-25] MEDS ORDERED: Iopamidol-370 76% 500 ML 1 ML ONE (16:41)
== END 2019-02-25 16:45 | disposition home or self-care (01) ==
LOC: ERS 10:40
DX: L76.22 Postprocedural hemorrhage of skin and subcutaneous tissue following other procedure (principal); I11.0 Hypertensive heart disease with heart failure; I50.9 Heart failure, unspecified; F32.9 Major depressive disorder, single episode, unspecified; Z79.899 Other long term (current) drug therapy; Z86.73 Personal history of transient ischemic attack (TIA), and cerebral infarction without residual deficits
CPT/HCPCS: 74177; 80053; 81003; 81015; 83605; 85025; 86140; 96365; J0696; Q9967

== ENCOUNTER 2019-05-18 12:57 | Outpatient (CLI) | payer MEDICARE ==
--- NOTE | 2019-05-18 15:50 | MMO ---
Bilateral MAMMO Bilat Diag DDI+MAGDALENA. CLINICAL HISTORY: Patient is 73 years old and is seen for diagnostic exam. The patient has the following family history of breast cancer: mother, at age 86. The patient has no personal history of cancer. VIEWS: The views performed were: bilateral craniocaudal with tomosynthesis; bilateral mediolateral oblique with tomosynthesis; and bilateral mediolateral with tomosynthesis. FILMS COMPARED: The present examination has been compared to prior imaging studies performed at [facility] on 12/27/2018 and 05/18/2019. This study has been interpreted with the assistance of computer-aided detection. MAMMOGRAM FINDINGS: There are scattered fibroglandular densities. Finding 1: There is a stable oval mass measuring 4 millimeters with circumscribed margins seen in the left breast. Finding 2: There are stable benign appearing calcifications seen in both breasts. Finding 3: There is a round mass measuring 3 millimeters with circumscribed margins seen in the inner region of the right breast. 3 mm cicumscribed hyperechoic focus. There are no suspicious masses, suspicious calcifications, or new areas of architectural distortion. IMPRESSION: THERE IS NO MAMMOGRAPHIC EVIDENCE OF MALIGNANCY. A ROUTINE FOLLOW-UP MAMMOGRAM IN 1 YEAR IS RECOMMENDED. THE RESULTS OF THIS EXAM WERE SENT TO THE PATIENT. ACR BI-RADS Category 2 - Benign finding MAMMOGRAPHY NOTE: 1. A negative mammogram report should not delay a biopsy if a dominant of clinically suspicious mass is present. 2. Approximately 10% to 15% of breast cancers are not detected by mammography. 3. Adenosis and dense breasts may obscure an underlying neoplasm. Reported by: SAMINA DUMONT MD Electonically Signed: [id number]
--- NOTE | 2019-05-18 16:08 | ULT ---
LIMITED RIGHT BREAST ULTRASOUND: FINDINGS: Circumscribed nodule in the right breast at 4 o'clock, very superficial in location, is evaluated wit h ultrasound. In the right breast, at 4 o'clock, 8 cm from the nipple, there is a circumscribed, hype rechoic nodular focus, measuring 0.2 cm in size, which appears to correspond to the mammographic abno rmality. Echogenic foci within the breast are benign. By mammogram, this density may have slightly in creased from 0.2 cm to 0.3 cm from the prior study. I still feel that this is benign. IMPRESSION: BI-RADS category 2 - benign findings. One year follow-up examination is suggested with consideration for diagnostic images and possibly fol low-up right breast ultrasound examination at that time. POS: OFF
--- NOTE | 2019-05-18 16:16 | ULT ---
EXAM: LEFT BREAST ULTRASOUND: 05/18/19 Patient returns for diagnostic mammogram as well as left breast ultrasound to evaluate a mammographic finding at 9 o'clock in the left breast. The left breast is evaluated at 9 o'clock 4 cm from the nipple. There is a somewhat poorly defined h yperechoic focus in the left breast which appears to be somewhat less elongated than seen on the prio r study. The mammographic finding is circumscribed and elongated and is stable and has a benign appea makayla. IMPRESSION: Small hyperechoic focus in the left breast 9 o'clock 4 cm from the nipple probably corresponding to t he stable circumscribed elongated area of abnormality in the left breast on diagnostic mammogram stab le from prior exam dating back to 05/04/18. BIRADS 2: Benign Finding(s) Routine annual screening mammography (for women over age 40) One year follow-up mammogram is recommended. POS: OFF
== END 2019-05-18 12:58 | disposition home or self-care (01) ==
LOC: BICMAMMO 12:57
PROVIDERS: ATTEND Internal Medicine
DX: R92.8 Other abnormal and inconclusive findings on diagnostic imaging of breast (principal)
CPT/HCPCS: 76642 ×2; 77066; G0279

== ENCOUNTER 2019-06-16 11:56 | Inpatient (IN) | payer MEDICARE ==
[2019-06-16 12:55] LABS: #Eosinphils 0.2 thou/uL (0.0-0.7); #Lymphocytes 0.5 thou/uL (1.20-3.40); #Monocytes 0.5 thou/uL (0.11-0.59); #Neutrophils 8.7 thou/uL (1.40-6.50); %Basophils 0.2 % (0.0-1.0); %Eosinophils 1.5 % (0.0-10.0); %Lymphocytes 5.4 % (21.0-51.0); %Monocytes 4.7 % (0.0-10.0); %Neutrophils 88.2 % (42.0-75.0); Hemoglobin 13.1 g/dL (12.0-16.0); Mean Corpuscular HGB CONC 32.6 g/dL (32.0-36.0); Mean Corpuscular Volume 85.8 fL (78.0-98.0); Platelet Count 169 thou/uL (130-400); Red Blood Cell (RBC) Count 4.69 mill/uL (4.20-5.40); White Blood Cell (WBC) Count 9.8 thou/uL (4.8-10.8)
[2019-06-16 13:19] LABS: ALT (SGPT) 14 U/L (8-55); AST (SGOT) 13 U/L (5-34); Albumin 3.7 g/dL (3.4-4.8); Alkaline Phosphatase 111 U/L (40-110); Anion Gap 10 mmol/L (10-20); BUN (Urea Nitrogen) 14 mg/dL (9.8-20.1); Bilirubin, Total 0.5 mg/dL (0.2-1.2); Calc. Creatinine Clearance 0 mL/min (70-130); Calcium 9.1 mg/dL (7.8-10.44); Carbon Dioxide 23 mmol/L (23-31); Chloride 105 mmol/L (98-107); Estimated GFR-MDRD 49; Globulin 3.4 g/dL (2.4-3.5); Glucose 116 mg/dL (83-110); Potassium 3.4 mmol/L (3.5-5.1); Protein, Total 7.1 g/dL (6.0-8.3); Sodium 135 mmol/L (136-145)
--- NOTE | 2019-06-16 14:03 | RAD ---
PORTABLE CHEST ONE VIEW: 06/16/19 at 12:47 p.m. HISTORY: Atrial fibrillation. FINDINGS/IMPRESSION: Comparison is made with exam of 06/24/16. The heart size is enlarged. The aorta is tortuous. There is a left sided Port=A-Cath again seen. No lobar consolidation, pneumothoraces, kiana pulmonary edema or large effusions identified. Postop lozano ges of bilateral shoulder arthroplasty are again noted. POS: OFF
[2019-06-16] MEDS ORDERED: methylPREDNISolone Sod Succ/PF 125 MG/2 ML VIAL ONE (15:40)
[2019-06-16] MEDS ORDERED: cefTRIAXone\\ROCEPHIN 2 GM VIAL ONE (15:55)
[2019-06-16 16:23] LABS: Troponin I 0.014 ng/mL (< 0.028)
[2019-06-16] MEDS ORDERED: Senokot S 8.6-50 MG TAB PO PRN (16:23)
[2019-06-16] MEDS ORDERED: Enoxaparin Sodium 100 MG/ML SYRINGE ONE (16:25)
[2019-06-16] MEDS ORDERED: Sodium Chloride 0.9% 1,000 ML IV SCH (16:30)
[2019-06-16] MEDS ORDERED: Ipratropium Bromide 2.5 ml Neb NEB PRN (16:53)
[2019-06-16 16:56] LABS: Bacteria/HPF 4+ HPF (None Seen); Bilirubin Negative (Negative); Blood, Urine 2+ (Negative); Clarity Clear (Clear); Glucose, Urine (Dipstick) Normal (Negative); Leukocyte 250 Leu/uL (Negative); Nitrite 1+ (Negative); Protein, Urine (Dipstick) Negative (Neg-Trace); Squamous Epithelial 0-3 HPF (0-3); Urobilinogen Normal mg/dL (Less than 2); WBC/HPF Greater than 50 HPF (0-3)
[2019-06-16] MEDS: Ipratropium Bromide 2.5 ml Neb NEB SCH (18:34)
[2019-06-16 19:07] LABS: Troponin I 0.015 ng/mL (< 0.028)
--- NOTE | 2019-06-16 19:19 | HP ---
CHIEF COMPLAINT: Shortness of breath. HISTORY OF PRESENT ILLNESS: The patient is a very pleasant 73-year-old female with a history of irregular pulse and history of lupus, currently in remission, presents to the hospital from her PCP's office for shortness of breath, chest tightness. The patient states that for the past last month, she has been having worsening shortness of breath on exertion; for the past week, that has worsened. She has also had paroxysmal nocturnal dyspnea. She denies any orthopnea. She uses 2 pillows to sleep at night. She states that she has been feeling very tired for the past month, which has progressively gotten worse. The patient states that for the past couple of days, she has been having some wheezing. At this point, she went to her primary care doctor. The patient also states that she has been having some cough with some yellow sputum, however, no fevers that she has noted off. The patient states that she has been taking Plavix for the past 3 weeks. Today, she was at her primary care doctor's office and noted to have atrial fibrillation with rapid ventricular response, heart rate was in the 110s and given her symptoms of tightness and shortness of breath, she was asked to come into the hospital. She also states that she has been having some chest tightness that has been going on for the past month. PAST MEDICAL HISTORY: 1. She has a history of lupus. She has been given Cytoxan and Plaquenil. She has been off therapy for the past 2 years. 2. She has history of mitral valve prolapse, irregular heartbeat, not sure that is atrial fibrillation. 3. Fibromyalgia. 4. Hydrocephalus. 5. Hypertension. 6. TIAs. 7. Macular degeneration. PAST SURGICAL HISTORY: She has had a cholecystectomy x2, colon resection. She has had appendectomy. She has had a hysterectomy. She has had bilateral shoulder replacement. She has had a bladder mesh in 1982, removed in 2019. SOCIAL HISTORY: She denies any alcohol use, drug use, or smoking history. She is a full code. Lives with her . Her occupation, she said she has worked various jobs. No exposure to any source of chemicals according to her. REVIEW OF SYSTEMS: All negative except for the ones mentioned above in the HPI. FAMILY HISTORY: No history of heart disease or stroke. Her EKG indicated atrial fibrillation, heart rate was . PHYSICAL EXAMINATION: VITAL SIGNS: Temperature of 98.2, respirations 16, blood pressure 155/97, pulse 103, 94% on room air. GENERAL: She is awake, alert, and oriented x3. Does not appear in distress. She is able to speak complete sentences. HEENT: She appears mildly dehydrated. Her oral mucosa appears to be dry. CV: Irregularly irregular. No murmurs heard throughout auscultating her heart. LUNGS: She has significant mild rhonchi all over, bilateral upper and bilateral lower with some mild expiratory wheezing. ABDOMEN: Soft and nontender. Bowel sounds are present x2. She has a mid abdominal scar. She does have a small crust around the scar area which constantly drained; however, there is no erythema that is noted around it. EXTREMITIES: No edema. Pedal pulses are present x2. NEUROLOGICAL: No focal deficits noted. SKIN: No cuts, lesions, or bruises noted. LABORATORY RESULTS: Her troponin x1 was negative. Her x-ray just indicated the heart is enlarged and no lobar consolidations or pulmonary edema has been notified. TSH was 1.3, normal. BNP was 239. Troponin as I mentioned x1 was negative. Her sodium was 135, potassium of 3.4, BUN of 14, creatinine of 1.09. Her glucose was 116. Her alkaline phosphatase is mildly elevated at 111. Her WBCs are 9.8, hemoglobin of 13.1, hematocrit of 40.3, her platelets are 169. She clinically appears dehydrated. ASSESSMENT AND PLAN: The patient is a very pleasant 73-year-old female, presents to the hospital with shortness of breath. 1. Shortness of breath. This could be pulmonary versus cardiac causing her to have shortness of breath versus infectious. The patient has a history of Plaquenil. On her physical examination, her lungs sound had significant coarse rhonchi throughout. She has no history of smoking. She has no secondhand smoking. No chemical exposure. The only thing that she has been exposed to is Cytoxan and she has had a history of lupus and according to her, she is in remission and this is per her home assessment nurse. I would like to go ahead and get a CTA of her chest or CT high-resolution to get a better view of her lungs. I will also get Pulmonary since she is supposed to see Pulmonary, however, has not been able to get an appointment with them. In regard to her lungs, her shortness of breath could also be secondary to her atrial fibrillation. I will initially get Cardiology to see her, but she may require Electrophysiology. I will also get an echocardiogram. She recently had a cardiac cath about 2-3 weeks ago, I was notified by the ER physician. Her cardiac cath, indicated no intervention and recommendation was medical management. I do not have the cardiac cath to read the report. We will also start her on Lovenox given CHADs-VASC score. She is on Plavix; however, she does not have any stents. She cannot have aspirin, she is allergic to aspirin, so I will go ahead and just give her the Lovenox. Cardiology has been consulted. 2. Urinary tract infection. Her UA at her doctor's office indicated positive nitrites. We will treat her with Rocephin. We will continue to monitor. 3. History of hypertension. We will continue her home medications. 4. Deep vein thrombosis prophylaxis. The patient is already on the Lovenox. 5. Mild dehydration. We will hydrate her for overnight and we will go ahead and do a CT of her chest in the morning. Job ID: [id number]
[2019-06-16] MEDS ORDERED: Metoprolol Tartrate 5 MG/5 ML VIAL IVP SCH (19:45)
[2019-06-16] MEDS: Famotidine/PF 20 mg/2ml Vial SLOW IVP SCH (20:06)
[2019-06-16] MEDS: Carvedilol 25 MG TAB PO SCH (20:06)
[2019-06-16] MEDS ORDERED: Opium Tincture 10% (1ml Charge) PO SCH (22:00)
[2019-06-17] MEDS: Ipratropium Bromide 2.5 ml Neb NEB SCH ×4 (00:20→18:47)
[2019-06-17 04:46] LABS: #Lymphocytes 0.5 thou/uL (1.20-3.40); #Monocytes 0.1 thou/uL (0.11-0.59); #Neutrophils 6.2 thou/uL (1.40-6.50); %Basophils 0.1 % (0.0-1.0); %Eosinophils 0.3 % (0.0-10.0); %Lymphocytes 7.8 % (21.0-51.0); %Monocytes 1.5 % (0.0-10.0); %Neutrophils 90.4 % (42.0-75.0); Hemoglobin 12.6 g/dL (12.0-16.0); Mean Corpuscular HGB CONC 31.8 g/dL (32.0-36.0); Mean Corpuscular Hemoglobin 27.2 pg (27.0-31.0); Mean Corpuscular Volume 85.7 fL (78.0-98.0); Mean Platelet Volume 9.4 fL (7.4-10.4); Platelet Count 134 thou/uL (130-400); Red Blood Cell (RBC) Count 4.63 mill/uL (4.20-5.40); White Blood Cell (WBC) Count 6.8 thou/uL (4.8-10.8)
[2019-06-17 04:47] LABS: Anion Gap 15 mmol/L (10-20); BUN (Urea Nitrogen) 14 mg/dL (9.8-20.1); Calc. Creatinine Clearance 88 mL/min (70-130); Calcium 8.4 mg/dL (7.8-10.44); Carbon Dioxide 17 mmol/L (23-31); Chloride 110 mmol/L (98-107); Estimated GFR-MDRD 67; Glucose 154 mg/dL (83-110); Potassium 4.3 mmol/L (3.5-5.1); Sodium 138 mmol/L (136-145)
[2019-06-17] MEDS: Famotidine/PF 20 mg/2ml Vial SLOW IVP SCH (08:38)
[2019-06-17] MEDS: DULoxetine 30 MG CAP PO SCH (08:39)
[2019-06-17] MEDS: Carvedilol 25 MG TAB PO SCH ×2 (08:39→20:02)
[2019-06-17] MEDS: Cholestyramine/Aspartame 4 gm Packet PO SCH (08:40)
[2019-06-17] MEDS: Enoxaparin Sodium 100 MG/ML SYRINGE SC SCH ×2 (08:40→21:34)
[2019-06-17] MEDS: Opium Tincture 10% (1ml Charge) PO SCH ×2 (08:41→21:34)
[2019-06-17] MEDS: Topiramate 25 MG TAB PO SCH ×2 (09:48→21:34)
[2019-06-17] MEDS: Pregabalin 75 MG CAP PO SCH ×2 (09:49→21:34)
[2019-06-17] MEDS ORDERED: methylPREDNISolone Sod Succ 40 MG VIAL IVP SCH (12:00)
[2019-06-17] MEDS: cefTRIAXone\\ROCEPHIN 1 GM in Sodium Chloride 0.9% 100 ML IVPB SCH (15:39)
--- NOTE | 2019-06-17 16:14 | PDOC.HOSPP ---
- Subjective Encounter Date: 06/17/19 Encounter Time: 10:15 Subjective: pt up in bed still has some sob - Objective Vital Signs & Weight: Vital Signs (12 hours) Temp Pulse Resp BP Pulse Ox 06/17/19 15:44 97.6 F 94 13 181/93 H 94 L 06/17/19 12:27 80 16 06/17/19 11:37 97.6 F 88 20 146/88 H 98 06/17/19 07:30 97.4 F L 88 12 145/82 H 98 06/17/19 07:18 87 16 Weight Admit Weight 203 lb 6.4 oz Weight 203 lb 6.4 oz I&O: 06/16/19 06/17/19 06/18/19 06:59 06:59 06:59 Intake Total 960 Balance 960 Result Diagrams: 06/17/19 04:23 06/17/19 04:23 Hospitalist ROS - Review of Systems Respiratory: reports: shortness of breath Cardiovascular: denies: chest pain, palpitations, orthopnea, paroxysmal noc. dyspnea, edema, light headedness, other Gastrointestinal: denies: nausea, vomiting, abdominal pain, diarrhea, constipation, melena, hematochezia, other Genitourinary: denies: dysuria, frequency, incontinence, hematuria, retention, other - Medication Medications: Active Medications Generic Name Dose Route Start Last Admin Trade Name Freq PRN Reason Stop Dose Admin Carvedilol 12.5 mg 06/16/19 21:00 06/17/19 08:39 Coreg PO 12.5 mg BID NATHANAEL Administration Cholestyramine Resin 4 gm 06/17/19 10:00 06/17/19 08:40 Questran Light PO 4 gm 1000 NATHANAEL Administration Diltiazem HCl 30 mg 06/17/19 11:30 06/17/19 12:24 Cardizem PO 30 mg ACHS NATHANAEL Administration Duloxetine HCl 30 mg 06/17/19 09:00 06/17/19 08:39 Cymbalta PO 30 mg DAILY NATHANAEL Administration Enoxaparin Sodium 90 mg 06/17/19 09:00 06/17/19 08:40 Lovenox SC 90 mg 0900,2100 NATHANAEL Administration Famotidine 20 mg 06/16/19 21:00 06/17/19 08:38 Pepcid SLOW IVP 20 mg Q12HR NATHANAEL Administration Ceftriaxone Sodium 1 gm/ 100 mls @ 200 mls/hr 06/17/19 16:30 06/17/19 15:39 Sodium Chloride IVPB 100 mls Q24HR NATHANAEL Administration Ipratropium [place] 2.5 ml 06/16/19 19:00 06/17/19 12:27 Atrovent NEB 2.5 ml [id number] NATHANAEL Administration Methylprednisolone Sodium Succinate 40 mg 06/17/19 12:00 06/17/19 12:25 Solu-Medrol IVP 40 mg 1200 NATHANAEL Administration Opium Tincture 0.6 ml 06/17/19 09:00 06/17/19 08:41 Opium Tincture 10% PO 0.6 ml BID NATHANAEL Administration Pregabalin 150 mg 06/17/19 09:00 06/17/19 09:49 Lyrica PO 150 mg BID NATHANAEL Administration Topiramate 25 mg 06/17/19 09:00 06/17/19 09:48 Topamax PO 25 mg BID NATHANAEL Administration - Exam Neck: negative: supple, symmetric, no JVD, no thyromegaly, no lymphadenopathy, no carotid bruit, JVD Heart: negative: RRR, no murmur, no gallops, no rubs, normal peripheral pulses, irregular, diminshed peripheral pulses, murmur present, II/IV, III/IV Respiratory: rales, rhonchi. negative: CTAB, no wheezes, no rales, no ronchi, normal chest expansion, no tachypnea, normal percussion, tachypneic, wheezes Gastrointestinal: negative: soft, non-tender, non-distended, normal bowel sounds , no palpable masses, no hepatomegaly, no splenomegaly, no bruit, no guarding, no rigidity, tender to palpation, distended, diminished bowl sounds, voluntary guarding Hosp A/P (1) UTI (urinary tract infection) Status: Acute Qualifiers: Urinary tract infection type: acute cystitis Hematuria presence: without hematuria Qualified Code(s): N30.00 - Acute cystitis without hematuria (2) CAD (coronary artery disease) Code(s): I25.10 - ATHSCL HEART DISEASE OF [place] CORONARY ARTERY W/O ANG PCTRS Status: Chronic Qualifiers: Coronary Disease-Associated Artery/Lesion type: [place] artery [place] vs. transplanted heart: [place] heart (3) Hypertension Code(s): I10 - ESSENTIAL (PRIMARY) HYPERTENSION Status: Chronic Qualifiers: Hypertension type: essential hypertension Qualified Code(s): I10 - Essential (primary) hypertension (4) Lupus Code(s): M32.9 - SYSTEMIC LUPUS ERYTHEMATOSUS, UNSPECIFIED Status: Chronic (5) Obesity (BMI 30.0-34.9) Code(s): E66.9 - OBESITY, UNSPECIFIED Status: Chronic (6) Atrial fibrillation with RVR Code(s): I48.91 - UNSPECIFIED ATRIAL FIBRILLATION Status: Acute - Plan will talk with pulmonary to see if we need a ct with high resolution vs ct with contrast. echo done. she still is in afib will start her on Cardizem. she is on [facility] cardiology to see pt as well as pulmonary. will give her one dose of digoxin.
[2019-06-17] MEDS ORDERED: Digoxin 0.5 MG/2 ML AMP SLOW IVP SCH ×2 (18:00→19:30)
[2019-06-17] MEDS ORDERED: Amlodipine 5 MG TAB PO SCH (19:30)
[2019-06-17] MEDS: Famotidine 20 MG TAB PO SCH (21:34)
[2019-06-17] MEDS: hydrALAZINE 20 MG/ML VIAL SLOW IVP PRN (22:28)
--- NOTE | 2019-06-17 22:47 | CON ---
DATE OF CONSULTATION: PRIMARY CARE DOCTOR: Eli Gtz MD PRIMARY FOOD AND BEVERAGE COORDINATOR: Silverio Palma MD REASON FOR CARDIOLOGY CONSULTATION: New onset atrial fibrillation with rapid ventricular response. HISTORY OF PRESENT ILLNESS: Ms. Fisher is a very present 73-year-old female with a significant history of lupus, remission for 2 to 3 years, fibromyalgia, hypertension, TIA in 1999, chronic diarrhea secondary to cholecystectomy, and chronic diastolic heart failure. She had complained of shortness of breath and fatigue for at least 2 months. She underwent a cardiac catheterization in May 23, 2019, which shows 30% to 50% stenosis in the LAD. However, she continued having shortness of breath, she was referred to the fiberglass boat assembly supervisor. At this moment, she has not followed up with them. Her first appointment is in June. The patient's shortness of breath is getting worse. Due to the reason the patient followup with the patient's primary care doctor yesterday and the patient was found to have atrial fibrillation with rapid ventricular response, the patient was instructed to present to the emergency department for further evaluation and treatment. Besides chronic fatigue and shortness of breath, she denied any chest pain, heaviness, tightness, dizziness, lightheadedness, or any other cardiac complaints except that she fell yesterday due to feeling very weak right before she visited her primary care doctor. She has had an indigestion in her stomach for a few months also. The patient underwent cardiac catheterization on May 23, 2019, with 30% to 50% stenosis in LAD. The patient had an echocardiogram done today with EF 60% to 65% with grade 1 diastolic dysfunction, mildly enlarged right ventricle, and moderate to severe dilated , mild mitral valve regurgitation, moderate tricuspid regurgitation, and mild pulmonic regurgitation. PAST MEDICAL HISTORY: Lupus, the patient has been in remission with Cytoxan and Plaquenil; macular degeneration with injection twice a month; fibromyalgia; hypertension; TIA in 1999; migraine with Botox injection; and chronic diarrhea. PAST SURGICAL HISTORY: 1. Cardiac cath on May [address] Palma. 2. Cataract. 3. Appendectomy. 4. Total hysterectomy. 5. Cholecystectomy. 6. Bladder suspension in . Mesh was removed in November 2018 due to frequent UTI. 7. Bilateral shoulder surgery and back surgery. FAMILY HISTORY: The patient's father due to MA. Actually, the patient noted that he had MA twice. The patient's brother due to myocardial infarction at the age of 4949 years old. He also has history of cardiomyopathy and hypertension. SOCIAL HISTORY: She is . She is living with her . She has children who are living well. The patient denies ETOH, tobacco, or illicit drug abuse. She does not exercise due to the history of lupus, fibromyalgia, and back pain. ALLERGIES: PLEASE REFER TO THE PATIENT'S MEDICAL RECORD. HOME MEDICATIONS: 1. Diamox 250 mg 2 tablets twice a day. 2. Carvedilol 12.5 mg twice a day. 3. Cymbalta 60 mg once a day. 4. Lyrica 150 mg twice a day. 5. Protonix 40 mg twice a day. 6. for chronic diarrhea. 7. Cymbalta 30 mg at daytime. 8. Plavix 75 mg every other day. 9. Lisinopril 2.5 mg once a day. 10. Topamax 25 mg twice a day. 11. Vitamin B12 100 mcg IM every 14 days. 12. Ventolin every 4 hours as needed. REVIEW OF SYSTEMS: A 12-point review of systems negative unless otherwise mentioned in the HPI. PHYSICAL EXAMINATION: VITAL SIGNS: Blood pressure is 146/88, temperature 97.6, pulse is 88, atrial fibrillation, respiratory rate 20, and O2 saturation 98% on room air. GENERAL: The patient is alert and oriented x4, not in acute distress. HEENT: Head, normocephalic and atraumatic. Eyes, extraocular muscle movement intact. ENT and mouth, oral and nasal mucosa moist without lesion. NECK: Supple. Normal range of motion. No JVD. No bruit or thrill noted at the carotid artery area. RESPIRATORY: Rhonchi bilaterally. No wheezing or rales noted, but diminished at the bases. CARDIOVASCULAR: Irregularly irregular. There are no S3 or S4. 2+ pulses in bilateral upper and lower extremities. No edema in the lower extremities. ABDOMEN: Soft, nontender. No mass to palpate. Bowel sounds are present. SKIN: Warm and dry. No erythema, lesion, or rash noted. MUSCULOSKELETAL: The patient is able to move all extremities without difficulty. The patient denied claudication. NEUROLOGIC: The patient is alert and oriented x4. Nonfocal. PSYCHIATRIC: The patient's mood is appropriate. LABORATORY DATA: WBC 6.8, hemoglobin 12.6, hematocrit 39.6, platelet 134. Sodium 138, potassium 4.3, BUN 14, creatinine 0.84, glucose 154, calcium 8.4, AST 13, ALT 14. Troponin is 0.014, 0.014, and 0.015. BNP 240. TSH is 1.3269. UA is positive for nitrites. She is on Rocephin IV at this moment. The patient's chest x-ray shows left-side Port-A-Cath. ASSESSMENT AND PLAN: 1. New onset atrial fibrillation with rapid ventricular response. The patient's heart rate is stable with diltiazem 30 mg 4 times a day with carvedilol 12.5 mg twice a day. She is on Lovenox 90 mg twice a day. Since there was unknown onset, we recommended the patient to be on anticoagulant for at least 6 weeks before the patient is going to have a ODILON and cardioversion. We discussed about mechanism of atrial fibrillation and the risk of atrial fibrillation, the patient and the patient's family member agreed to continue oral anticoagulant at this moment. The patient denies any hematuria or hematochezia at home. She has not fall lately except yesterday with severe weakness. However, if the patient continues to have worsening shortness of breath and fatigue, the patient might have the cardioversion as soon as possible. 2. Shortness of breath. The patient had a pulmonary consult ordered for chronic shortness of breath with significant coarse rhonchi by the physical examination. She is going to have a CTA of the chest. 3. Urinary tract infection. The patient is on Rocephin at this moment. 4. Hypertension. The patient's blood pressure is stable at this moment. We would like to continue to monitor and adjust the patient's medications as appropriate. Thank you very much for Cardiology Service to participate in the care of this patient. We will follow along the patient's care team and make further recommendations as appropriate. Job ID: [id number]
--- NOTE | 2019-06-17 22:50 | CON ---
DATE OF CONSULTATION: 06/17/2019 INDICATION FOR CONSULTATION: A 73-year-old female with a history of new onset atrial fibrillation of uncertain duration. HISTORY OF PRESENT ILLNESS: This is a 73-year-old female, who underwent cardiac catheterization by Dr. Palma, recently was found to have 30% to 50% stenosis in the coronary arteries, but no significant stenosis was noted. She has a normal ejection fraction. Repeat echocardiogram shows ejection fraction of 60% to 65%. She does have moderate to severe left atrial dilatation, most likely for the etiology of her atrial fibrillation. She was admitted at this time due to shortness of breath and was found to have atrial fibrillation with rapid ventricular response. At this time, she continues to have tachycardia. We will continue to manage her medications to slow the heart rate. Presently, she is on Coreg 25 mg b.i.d. as well as digoxin. She has been given one dose of digoxin. She is also on IV diltiazem and I believe this has been switched over to p.o. diltiazem, but we may need to convert back to the IV diltiazem if she continues to have tachycardia. At this time, the heart rate still remains in the 110s to 120s at times. She denied any chest pain and appears to be comfortable at this time. She was unaware that the heart was beating fast, but she did notice that she was becoming more short of breath over the last several weeks since she thought it was due to a history of having possible asthma. She was scheduled to see a nailhead puncher, but that appointment had not yet been undertaken. She was scheduled to see the nailhead puncher sometime, I believe late June. At this time, she continued to have significant wheezing which is expiratory. She has been started on nebulizer treatments, but most likely would benefit from seeing a nailhead puncher prior to her discharge. She most likely has underlying COPD or asthma and this could be the etiology of atrial fibrillation since she does not have significant coronary artery disease. PAST MEDICAL HISTORY: Please refer to the notes dictated by the nurse practitioner. SOCIAL HISTORY: Please refer to the notes dictated by the nurse practitioner. FAMILY HISTORY: Please refer to the notes dictated by the nurse practitioner. REVIEW OF SYSTEMS: Please refer to the notes dictated by the nurse practitioner. MEDICATIONS: Please refer to the notes dictated by the nurse practitioner. ALLERGIES: PLEASE REFER TO THE NOTES DICTATED BY THE NURSE PRACTITIONER. PHYSICAL EXAMINATION: GENERAL: Reveals an elderly female, somewhat overweight. VITAL SIGNS: Blood pressure is 181/93, earlier today was 146/88. She is afebrile. Heart rate is anywhere between the 80s to 110s, respiratory rate is 13 at this time, O2 saturation is 94%. HEENT: Shows head to be normocephalic and atraumatic. Carotid pulses are present. There were no significant bruits noted. CHEST: Diffuse expiratory wheezing with some scattered rhonchi. Otherwise, she appears to be stable at this time. From a pulmonary standpoint, she does not appear to be short of breath or dyspneic. ABDOMEN: Shows abdomen to be obese. Positive bowel sounds are present. CARDIOVASCULAR: Reveals an irregularly irregular rhythm with some tachycardia. There was very soft systolic murmur noted at the lower sternal border. Otherwise, I cannot elicit any significant murmurs. EXTREMITIES: Showed no clubbing, cyanosis, or edema at this time. She does have evidence of possible mild right lower leg edema previously, but this is now resolved. Her pedal pulses are present. NEUROLOGICAL: She appears to be intact. DIAGNOSTIC STUDIES: Her EKG showed atrial fibrillation with rapid ventricular response. There were no ST-segment changes to indicate ischemia. LABORATORY DATA: Shows a WBC of 6.8, hemoglobin was 12.6, and platelet count was 134,000. Her sodium was 134, potassium 4.3, CO2 was 17, chloride was 110, BUN 14, creatinine 0.84, and blood sugar was 154. Her BNP was 239. Cardiac enzymes are negative. IMPRESSION: 1. Recent onset of atrial fibrillation with rapid ventricular response. We will try to control this by medical management with control for rate control. We will continue also on oral anticoagulation. She may need to be seen by the industrial maintenance technician. If she continues to have tachycardia, eventually may need to undergo ablation or undergo an AVJ ablation. If we cannot control the heart rate, would continue the diltiazem. As far as the beta blockers concerned, she may not tolerate this with her asthma which appears to be asthma only. She is wheezing significantly. Digoxin can be used as needed. If she continues to be tachycardic by the next 24 hours, I will ask industrial maintenance technician to evaluate the patient and give suggestions. It will be difficult to control her with medications in sinus rhythm with her left atrium as large as it is. 2. Coronary artery disease. This appears to be stable. She did not have any significant flow limiting disease. The most significant stenosis was 30% to 50%, and this appears to be stable at this time here with tachycardia. There were no EKG changes to indicate ischemia. 3. Hypertension. We will continue to manage medically. We will add medications as needed. Perhaps start her on amlodipine to help decrease the blood pressure. 4. History of hyperlipidemia. We will continue her on some type of statin medication. 5. History of lupus. This will be dealt with by the primary care service. It appears that she has had in the past some history of tachycardia at least according to the records. She has had some atrial tachycardia, has been treated with amiodarone in the past. 6. What appears to be chronic obstructive pulmonary disease in the form of asthma. She has an upcoming appointment with the nailhead puncher, but it may be of benefit for the patient to see Pulmonology prior to her being discharged if at all possible. We will be more than happy to continue to follow the patient with you. Job ID: [id number]
[2019-06-18] MEDS: Ipratropium Bromide 2.5 ml Neb NEB SCH ×3 (00:34→18:56)
[2019-06-18] MEDS: Acetaminophen 325 MG TAB PO PRN ×3 (00:44→17:11)
[2019-06-18] MEDS: Digoxin 0.5 MG/2 ML AMP SLOW IVP SCH ×2 (00:45→09:04)
--- NOTE | 2019-06-18 00:47 | CON ---
DATE OF CONSULTATION: 06/17/2019 SERVICE: Pulmonary Medicine. REASON FOR CONSULT: Respiratory failure. HISTORY OF PRESENT ILLNESS: The patient is a 73-year-old white female with past medical significant for essentially nothing. She has no history of asthma, and she was diagnosed with COPD around the time of 1986 when she was also diagnosed with lupus. That being said, she had problems when she was living in a different area, but ever since she moved to [facility] 5 years ago, she did not have any additional difficulties with her breathing. About 4 months ago, she had a reconstructive surgery procedure. Ever since then, she has had increasing problems with dyspnea on exertion that have been progressive. Whenever she gets up and walks around or does some activity, she has some wheezing and shortness of breath that stops her, slows her down. She has also been coughing intermittently. Typically, she brings up a little bit of white phlegm. It is worse in the morning and tends to clear as the day goes on. She notes having more severe reflux related changes as well. She typically does not have that. She takes an acid pill on a daily basis and typically this is enough to prevent her from having any severe symptoms there. Because of her dyspnea on exertion, she had a recent stress test. It did not look too terribly abnormal, but a catheterization was performed either way. She was identified as having coronary artery disease, but nothing that was significant to limit flow. She was referred for pulmonary consultation. That appointment will be with Dr. Michael on 17 of July. Because of the long lead time, she decided to just go ahead and present to the emergency department because her progressive dyspnea is being getting worse over the past 4 months. PAST MEDICAL HISTORY: 1. Lupus. 2. Coronary artery disease. 3. Fibromyalgia. 4. Hypertension. 5. History of TIAs. 6. Macular degeneration. PAST SURGICAL HISTORY: 1. Cholecystectomy. 2. Colon resection. 3. Appendectomy. 4. Hysterectomy. 5. Bilateral shoulder replacement. 6. Bladder suspension surgery in 1982 with subsequent removal of mesh in January of 2019. SOCIAL HISTORY: Negative for alcohol, tobacco, or illicit drug use. She is a lifelong nonsmoker. She has no exposure to chemicals, dust, asbestos, or tuberculosis otherwise. FAMILY HISTORY: Noncontributory. ALLERGIES: 1. MYRBETRIQ. 2. NSAIDS. 3. VALSARTAN. 4. VANCOMYCIN. MEDICATIONS: List of her inpatient medications were reviewed. Multiple updates were made at this time. REVIEW OF SYSTEMS: General, head, ears, eyes, nose, throat, cardiovascular, respiratory, GI, , musculoskeletal, neurologic, and skin is negative except as mentioned in the HPI. PHYSICAL EXAMINATION: VITAL SIGNS: Afebrile, pulse 94, blood pressure 181/93, respirations 13, saturation 94%, currently on room air. GENERAL: The patient is awake and alert, in no apparent distress. LUNGS: Good air entry bilaterally. There is a prolonged expiratory phase with polyphonic wheezing. No crackles are appreciated. HEART: Normal rate, irregular. ABDOMEN: Soft, nontender, nondistended. Bowel sounds are positive. MUSCULOSKELETAL: No cyanosis or clubbing. No pitting in the bilateral lower extremities. NEUROLOGIC: Grossly nonfocal. LABORATORIES: WBC 6.8, hemoglobin 12.6, platelets 134,000. Basic metabolic profile and liver function studies are unremarkable. BNP 239, which is well above baseline of 60. Troponins are negative x3. Urinalysis is positive for pyuria, elevated leukocyte esterase and minimal nitrite positivity with 4+ bacteria. IMAGIN. Echocardiogram demonstrates a 60% to 65% ejection fraction with likely diastology. Left atrium is [id number] dilated. 2. Chest x-ray demonstrates no acute cardiopulmonary abnormality. There is bilateral shoulder replacement. No overt consolidating lesions or effusions are identified. There is not much in the way of cephalization throughout bilateral lung brown. ASSESSMENT: 1. Acute bronchitis. 2. Atrial fibrillation, currently rate controlled. 3. [id number] diastolic heart failure, minimal. 4. History of systemic lupus erythematosus. 5. Asthma with acute exacerbation (likely extrinsics secondary to reflux). 6. Gastroesophageal reflux disease. 7. Obstructive sleep apnea, suspected. DISCUSSION AND PLAN: We briefly talked about acid reflux precautions. For the next month, she is going to try elevating head of bed and avoiding p.o. within 2 hours going to sleep including water. She will keep her appointment with Dr. Michael. We will give her a brief course of steroids, nebulized medications, and antibiotics. She is not significantly volume up, so I do not think we need to be too terribly aggressive with diuretics. I will repeat an JHONY with tomorrow morning's laboratories. I would like for her to discuss moving forward with a polysomnogram in the outpatient setting with her testing analyst she will be establishing with. Pulmonary will continue to follow intermittently while the patient remains in this location. Job ID: [id number]
[2019-06-18] MEDS: hydrALAZINE 20 MG/ML VIAL SLOW IVP PRN (05:58)
[2019-06-18] MEDS ORDERED: Amlodipine 5 MG TAB PO SCH (09:00)
[2019-06-18] MEDS: Topiramate 25 MG TAB PO SCH ×2 (09:04→21:08)
[2019-06-18] MEDS: predniSONE 20 MG TAB PO SCH (09:04)
[2019-06-18] MEDS: Pregabalin 75 MG CAP PO SCH ×2 (09:05→21:08)
[2019-06-18] MEDS: DULoxetine 30 MG CAP PO SCH (09:06)
[2019-06-18] MEDS: Carvedilol 25 MG TAB PO SCH ×2 (09:06→21:09)
[2019-06-18] MEDS: Famotidine 20 MG TAB PO SCH ×2 (09:06→21:09)
[2019-06-18] MEDS: Cholestyramine/Aspartame 4 gm Packet PO SCH (09:07)
[2019-06-18] MEDS: Enoxaparin Sodium 100 MG/ML SYRINGE SC SCH ×2 (09:07→21:10)
[2019-06-18] MEDS ORDERED: Ondansetron PF 4 MG/2 ML Vial IVP PRN (09:30)
[2019-06-18] MEDS ORDERED: diphenhydrAMINE 50 MG/ML VIAL IVP SCH (10:00)
[2019-06-18] MEDS ORDERED: Metoclopramide HCl 10 MG/2 ML VIAL IVP SCH (10:00)
[2019-06-18] MEDS: Opium Tincture 10% (1ml Charge) PO SCH ×2 (10:18→21:11)
--- NOTE | 2019-06-18 12:41 | PDOC.HOSPP ---
- Subjective Encounter Date: 06/18/19 Encounter Time: 10:45 Subjective: pt up in bed complains of headache. she states she has migraine headache and sometimes gets nauseated with her headaches. - Objective Vital Signs & Weight: Vital Signs (12 hours) Temp Pulse Resp BP Pulse Ox 06/18/19 09:04 109 H 06/18/19 08:50 97.4 F L 109 H 16 179/84 H 97 06/18/19 07:23 60 16 06/18/19 03:58 97.8 F 67 18 178/87 H 99 06/18/19 00:45 76 Weight Admit Weight 203 lb 6.4 oz Weight 203 lb 6.4 oz I&O: 06/17/19 06/18/19 06/19/19 06:59 06:59 06:59 Intake Total 960 2080 Output Total 1400 Balance 960 680 Result Diagrams: 06/17/19 04:23 06/17/19 04:23 Hospitalist ROS - Review of Systems Respiratory: denies: cough, dry, shortness of breath, hemoptysis, SOB with excertion, pleuritic pain, sputum, wheezing, other Cardiovascular: denies: chest pain, palpitations, orthopnea, paroxysmal noc. dyspnea, edema, light headedness, other Gastrointestinal: denies: nausea, vomiting, abdominal pain, diarrhea, constipation, melena, hematochezia, other Genitourinary: denies: dysuria, frequency, incontinence, hematuria, retention, other - Medication Medications: Active Medications Generic Name Dose Route Start Last Admin Trade Name Freq PRN Reason Stop Dose Admin Acetaminophen 650 mg 06/16/19 16:23 06/18/19 09:01 Tylenol PO 650 mg Q4H PRN Administration Headache/Fever/Mild Pain (1-3) Albuterol/Ipratropium 3 ml 06/18/19 01:00 06/18/19 07:23 Duoneb NEB 3 ml [id number] NATHANAEL Administration Amlodipine Besylate 5 mg 06/18/19 09:00 06/18/19 09:06 Norvasc PO 5 mg DAILY NATHANAEL Administration Carvedilol 25 mg 06/17/19 21:00 06/18/19 09:06 Coreg PO 25 mg BID NATHANAEL Administration Cholestyramine Resin 4 gm 06/17/19 10:00 06/18/19 09:07 Questran Light PO 4 gm 1000 NATHANAEL Administration Diltiazem HCl 60 mg 06/17/19 21:00 06/18/19 09:05 Cardizem PO 60 mg BID NATHANAEL Administration Diphenhydramine HCl 25 mg 06/18/19 10:00 06/18/19 10:18 Benadryl IVP 06/18/19 21:00 25 mg NOW NATHANAEL Administration Duloxetine HCl 30 mg 06/17/19 09:00 06/18/19 09:06 Cymbalta PO 30 mg DAILY NATHANAEL Administration Enoxaparin Sodium 90 mg 06/17/19 09:00 06/18/19 09:07 Lovenox SC 90 mg 0900,2100 NATHANAEL Administration Famotidine 20 mg 06/17/19 21:00 06/18/19 09:06 Pepcid PO 20 mg BID NATHANAEL Administration Hydralazine HCl 10 mg 06/17/19 21:47 06/18/19 05:58 Apresoline SLOW IVP 06/18/19 21:48 10 mg Q4H PRN Administration SBP > 180 and HR < 70 Ceftriaxone Sodium 1 gm/ 100 mls @ 200 mls/hr 06/17/19 16:30 06/17/19 15:39 Sodium Chloride IVPB 100 mls Q24HR NATHANAEL Administration Ipratropium [place] 2.5 ml 06/16/19 19:00 06/18/19 06:32 Atrovent NEB Not Given [id number] NATHANAEL Ondansetron HCl 4 mg 06/18/19 09:30 06/18/19 10:19 Zofran IVP 4 mg Q6H PRN Administration Nausea/Vomiting Opium Tincture 0.6 ml 06/17/19 09:00 06/18/19 10:18 Opium Tincture 10% PO 0.6 ml BID NATHANAEL Administration Prednisone 40 mg 06/18/19 08:00 06/18/19 09:04 Prednisone PO 06/24/19 08:01 40 mg QAM-WM NATHANAEL Administration Pregabalin 150 mg 06/17/19 09:00 06/18/19 09:05 Lyrica PO 150 mg BID NATHANAEL Administration Topiramate 25 mg 06/17/19 09:00 06/18/19 09:04 Topamax PO 25 mg BID NATHANAEL Administration - Exam Neck: negative: supple, symmetric, no JVD, no thyromegaly, no lymphadenopathy, no carotid bruit, JVD Heart: negative: RRR, no murmur, no gallops, no rubs, normal peripheral pulses, irregular, diminshed peripheral pulses, murmur present, II/IV, III/IV Respiratory: rhonchi, wheezes. negative: CTAB, no wheezes, no rales, no ronchi , normal chest expansion, no tachypnea, normal percussion, rales, tachypneic Gastrointestinal: negative: soft, non-tender, non-distended, normal bowel sounds , no palpable masses, no hepatomegaly, no splenomegaly, no bruit, no guarding, no rigidity, tender to palpation, distended, diminished bowl sounds, voluntary guarding Hosp A/P (1) UTI (urinary tract infection) Status: Acute Qualifiers: Urinary tract infection type: acute cystitis Hematuria presence: without hematuria Qualified Code(s): N30.00 - Acute cystitis without hematuria (2) CAD (coronary artery disease) Code(s): I25.10 - ATHSCL HEART DISEASE OF [place] CORONARY ARTERY W/O ANG PCTRS Status: Chronic Qualifiers: Coronary Disease-Associated Artery/Lesion type: [place] artery [place] vs. transplanted heart: [place] heart (3) Hypertension Code(s): I10 - ESSENTIAL (PRIMARY) HYPERTENSION Status: Chronic Qualifiers: Hypertension type: essential hypertension Qualified Code(s): I10 - Essential (primary) hypertension (4) Lupus Code(s): M32.9 - SYSTEMIC LUPUS ERYTHEMATOSUS, UNSPECIFIED Status: Chronic (5) Obesity (BMI 30.0-34.9) Code(s): E66.9 - OBESITY, UNSPECIFIED Status: Chronic (6) Atrial fibrillation with RVR Code(s): I48.91 - UNSPECIFIED ATRIAL FIBRILLATION Status: Acute - Plan will talk with pulmonary to see if we need a ct with high resolution vs ct with contrast. echo done. she still is in afib will start her on Cardizem. she is on [facility] cardiology to see pt as well as pulmonary. will give her one dose of digoxin. 06/17 will start her on Benadryl and reglan for migraine protocol. she still is in afib and goes in to rvr but does not sustain. May need EP. will continue steroids for now.
--- NOTE | 2019-06-18 15:38 | PDOC.CPN ---
- Subjective Date: 06/18/19 Time: 15:46 Interval history: The pt seen and examined. No overnight events. No cardiac complaints. - Objective Allergies/Adverse Reactions: Allergies Allergy/AdvReac Type Severity Reaction Status Date / Time mirabegron [From Myrbetriq] Allergy Verified 12/03/17 13:25 NSAIDS (Non-Steroidal Allergy Verified 12/03/17 14:16 Anti-Inflamma valsartan [From Diovan] Allergy Rash Verified 12/10/16 12:56 vancomycin Allergy Verified 12/03/17 13:25 Visit Medications: Current Medications Acetaminophen (Tylenol) 650 mg PO Q4H PRN PRN Reason: Headache/Fever/Mild Pain (1-3) Last Admin: 06/18/19 09:01 Dose: 650 mg Albuterol/Ipratropium (Duoneb) 3 ml NEB [id number] [facility] Last Admin: 06/18/19 12:57 Dose: 3 ml Amlodipine Besylate (Norvasc) 5 mg PO BID [facility] Carvedilol (Coreg) 25 mg PO BID [facility] Last Admin: 06/18/19 09:06 Dose: 25 mg Cholestyramine Resin (Questran Light) 4 gm PO 1000 [facility] Last Admin: 06/18/19 09:07 Dose: 4 gm Digoxin (Lanoxin) 0.25 mg PO QAM [facility] Diltiazem HCl (Cardizem) 60 mg PO BID [facility] Last Admin: 06/18/19 09:05 Dose: 60 mg Diphenhydramine HCl (Benadryl) 25 mg IVP NOW [facility] Stop: 06/18/19 21:00 Last Admin: 06/18/19 10:18 Dose: 25 mg Duloxetine HCl (Cymbalta) 30 mg PO DAILY [facility] Last Admin: 06/18/19 09:06 Dose: 30 mg Enoxaparin Sodium (Lovenox) 90 mg SC 0900,2100 [facility] Last Admin: 06/18/19 09:07 Dose: 90 mg Famotidine (Pepcid) 20 mg PO BID [facility] Last Admin: 06/18/19 09:06 Dose: 20 mg Hydralazine HCl (Apresoline) 10 mg SLOW IVP Q4H PRN PRN Reason: SBP > 180 and HR < 70 Stop: 06/18/19 21:48 Last Admin: 06/18/19 05:58 Dose: 10 mg Ceftriaxone Sodium 1 gm/ (Sodium Chloride) 100 mls @ 200 mls/hr IVPB Q24HR [facility] Last Admin: 06/17/19 15:39 Dose: 100 mls Ipratropium [place] (Atrovent) 2.5 ml NEB Q6H PRN PRN Reason: SOB &/or Wheezing Ipratropium [place] (Atrovent) 2.5 ml NEB [id number] [facility] Last Admin: 06/18/19 06:32 Dose: Not Given Ondansetron HCl (Zofran) 4 mg IVP Q6H PRN PRN Reason: Nausea/Vomiting Last Admin: 06/18/19 10:19 Dose: 4 mg Opium Tincture (Opium Tincture 10%) 0.6 ml PO BID [facility] Last Admin: 06/18/19 10:18 Dose: 0.6 ml Prednisone (Prednisone) 40 mg PO QAM-WM [facility] Stop: 06/24/19 08:01 Last Admin: 06/18/19 09:04 Dose: 40 mg Pregabalin (Lyrica) 150 mg PO BID [facility] Last Admin: 06/18/19 09:05 Dose: 150 mg Senna/Docusate Sodium (Senokot S) 2 tab PO BIDPRN PRN PRN Reason: Constipation Sodium Chloride (Flush - Normal Saline) 10 ml IVF Q12HR NATHANAEL Sodium Chloride (Flush - Normal Saline) 10 ml IVF PRN PRN PRN Reason: Saline Flush Topiramate (Topamax) 25 mg PO BID [facility] Last Admin: 06/18/19 09:04 Dose: 25 mg Vital Signs & Weight: Vital Signs Temp Pulse Resp BP Pulse Ox 06/18/19 13:18 97.4 F L 69 15 145/69 H 95 06/18/19 09:04 109 H 06/18/19 08:50 97.4 F L 109 H 16 179/84 H 97 06/18/19 07:23 60 16 06/18/19 03:58 97.8 F 67 18 178/87 H 99 Admit Weight 203 lb 6.4 oz Weight 203 lb 6.4 oz - Physical Exam General: alert & oriented x3 Neck: supple neck Cardiac: irregularly regular Lungs: decreased breath sounds, wheezes Neuro: cranial nerve 2-12 intact - Labs Result Diagrams: 06/17/19 04:23 02/29/20 04:23 Troponin/CKMB Troponin I 0.015 ng/mL (< 0.028) 06/16/19 18:36 - Telemetry Supraventricular conduction: atrial fibrillation - Assessment/Plan Assessment/Plan: 1. New onset Afib with RVR with mod-severe LAE by Echo in 05/2019- well controlled HR with bblocker and Digoxin; on Lovenox BID; May need EP consult 2. CAD with cath in 05/2019 with 30-50% stenosis in LAD - stable; on BBlocker, ASA; may need Statin for LDL > 80 in 07/2018 3. HTN - will increase Norvasc 5mg to BID 4. UTI - 5. Hx of Lupus 6. Asthma MAR reviewed * Dr Palma's pt
[2019-06-18] MEDS: cefTRIAXone\\ROCEPHIN 1 GM in Sodium Chloride 0.9% 100 ML IVPB SCH (17:00)
[2019-06-18] MEDS: Amlodipine 5 MG TAB PO SCH (21:10)
[2019-06-19] MEDS ORDERED: diphenhydrAMINE 50 MG CAP PO SCH (00:30)
[2019-06-19] MEDS: Ipratropium Bromide 2.5 ml Neb NEB SCH ×5 (00:51→23:08)
[2019-06-19] MEDS ORDERED: hydrALAZINE 20 MG/ML VIAL SLOW IVP SCH (01:00)
[2019-06-19 04:14] LABS: Hemoglobin 12.1 g/dL (12.0-16.0); Platelet Count 186 thou/uL (130-400)
[2019-06-19] MEDS: Digoxin 0.25 MG TAB PO SCH (08:59)
[2019-06-19] MEDS: Famotidine 20 MG TAB PO SCH ×2 (08:59→20:25)
[2019-06-19] MEDS: DULoxetine 30 MG CAP PO SCH (08:59)
[2019-06-19] MEDS: Carvedilol 25 MG TAB PO SCH ×2 (09:00→20:26)
[2019-06-19] MEDS: predniSONE 20 MG TAB PO SCH (09:00)
[2019-06-19] MEDS: Amlodipine 5 MG TAB PO SCH ×2 (09:00→20:25)
[2019-06-19] MEDS: Pregabalin 75 MG CAP PO SCH ×2 (09:00→20:24)
[2019-06-19] MEDS: Topiramate 25 MG TAB PO SCH ×2 (09:00→20:31)
[2019-06-19] MEDS: Cholestyramine/Aspartame 4 gm Packet PO SCH (09:02)
[2019-06-19] MEDS: Acetaminophen 325 MG TAB PO PRN ×2 (09:02→15:24)
[2019-06-19] MEDS: Enoxaparin Sodium 100 MG/ML SYRINGE SC SCH ×2 (09:02→20:24)
[2019-06-19] MEDS: Opium Tincture 10% (1ml Charge) PO SCH ×2 (09:38→20:31)
--- NOTE | 2019-06-19 13:58 | CT ---
EXAM: CT Chest WO Con PROVIDED CLINICAL HISTORY: Shortness of breath COMPARISON: None FINDINGS: Vascular calcification including coronary calcium. Heart, pericardium and great vessels are suboptima lly evaluated in the absence of IV contrast material. No evidence for thoracic lymph node enlargement. The lungs are free of significant opacity The airway appears patent and of normal caliber. No pleural fluid or pneumothorax apparent. No evidence for thoracic lymph node enlargement. The osseous structures demonstrate no concerning lytic or blastic lesions. IMPRESSION: No evidence for an acute process.
--- NOTE | 2019-06-19 14:51 | PDOC.HOSPP ---
- Subjective Encounter Date: 06/19/19 Encounter Time: 10:45 Subjective: pt up in bed still has significant wheezing, she still does not feel well. - Objective Vital Signs & Weight: Vital Signs (12 hours) Temp Pulse Resp BP BP Pulse Ox 06/19/19 12:43 65 18 95 06/19/19 11:52 97.6 F 66 16 144/79 H 96 06/19/19 09:00 75 194/98 H 06/19/19 08:59 75 06/19/19 08:00 97.6 F 75 16 194/98 H 95 06/19/19 07:35 80 18 98 06/19/19 04:00 97.8 F 59 L 18 138/69 96 Weight Admit Weight 203 lb 6.4 oz Weight 202 lb 11.2 oz I&O: 06/18/19 06/19/19 06/20/19 06:59 06:59 06:59 Intake Total 2080 1300 Output Total 1400 850 Balance 680 450 Result Diagrams: 06/19/19 03:54 06/19/19 03:54 Additional Labs: Accuchecks 06/18/19 16:58 POC Glucose 135 H Hospitalist ROS - Review of Systems Respiratory: reports: shortness of breath Gastrointestinal: denies: nausea, vomiting, abdominal pain, diarrhea, constipation, melena, hematochezia, other Genitourinary: denies: dysuria, frequency, incontinence, hematuria, retention, other Musculoskeletal: denies: neck pain, shoulder pain, arm pain, back pain, hand pain, leg pain, foot pain, other - Medication Medications: Active Medications Generic Name Dose Route Start Last Admin Trade Name [place] PRN Reason Stop Dose Admin Acetaminophen 650 mg 06/16/19 16:23 06/19/19 09:02 Tylenol PO 650 mg Q4H PRN Administration Headache/Fever/Mild Pain (1-3) Albuterol/Ipratropium 3 ml 06/18/19 01:00 06/19/19 12:43 Duoneb NEB 3 ml [id number] NATHANAEL Administration Amlodipine Besylate 5 mg 06/18/19 21:00 06/19/19 09:00 Norvasc PO 5 mg BID NATHANAEL Administration Carvedilol 25 mg 06/17/19 21:00 06/19/19 09:00 Coreg PO 25 mg BID NATHANAEL Administration Cholestyramine Resin 4 gm 06/17/19 10:00 06/19/19 09:02 Questran Light PO 4 gm 1000 NATHANAEL Administration Digoxin 0.25 mg 06/19/19 09:00 06/19/19 08:59 Lanoxin PO 0.25 mg QAM NATHANAEL Administration Diltiazem HCl 60 mg 06/17/19 21:00 06/19/19 08:59 Cardizem PO 60 mg BID NATHANAEL Administration Duloxetine HCl 30 mg 06/17/19 09:00 06/19/19 08:59 Cymbalta PO 30 mg DAILY NATHANAEL Administration Enoxaparin Sodium 90 mg 06/17/19 09:00 06/19/19 09:02 Lovenox SC 90 mg 0900,2100 NATHANAEL Administration Famotidine 20 mg 06/17/19 21:00 06/19/19 08:59 Pepcid PO 20 mg BID NATHANAEL Administration Ceftriaxone Sodium 1 gm/ 100 mls @ 200 mls/hr 06/17/19 16:30 06/18/19 17:00 Sodium Chloride IVPB 100 mls Q24HR NATHANAEL Administration Ipratropium [place] 2.5 ml 06/16/19 19:00 06/19/19 12:46 Atrovent NEB Not Given [id number] NATHANAEL Ondansetron HCl 4 mg 06/18/19 09:30 06/18/19 10:19 Zofran IVP 4 mg Q6H PRN Administration Nausea/Vomiting Opium Tincture 0.6 ml 06/17/19 09:00 06/19/19 09:38 Opium Tincture 10% PO 0.6 ml BID NATHANAEL Administration Prednisone 40 mg 06/18/19 08:00 06/19/19 09:00 Prednisone PO 06/24/19 08:01 40 mg QAM-WM NATHANAEL Administration Pregabalin 150 mg 06/17/19 09:00 06/19/19 09:00 Lyrica PO 150 mg BID NATHANAEL Administration Sodium Chloride 10 ml 06/18/19 21:00 06/19/19 09:03 Flush - Normal Saline IVF 10 ml Q12HR NATHANAEL Administration Topiramate 25 mg 06/17/19 09:00 06/19/19 09:00 Topamax PO 25 mg BID NATHANAEL Administration - Exam Neck: negative: supple, symmetric, no JVD, no thyromegaly, no lymphadenopathy, no carotid bruit, JVD Heart: negative: RRR, no murmur, no gallops, no rubs, normal peripheral pulses, irregular, diminshed peripheral pulses, murmur present, II/IV, III/IV Respiratory: rhonchi, wheezes Gastrointestinal: negative: soft, non-tender, non-distended, normal bowel sounds , no palpable masses, no hepatomegaly, no splenomegaly, no bruit, no guarding, no rigidity, tender to palpation, distended, diminished bowl sounds, voluntary guarding Extremities: negative: no cyanosis, no clubbing, no edema, 1+ LE edema, 2+ LE edema, clubbing Hosp A/P (1) UTI (urinary tract infection) Status: Acute Qualifiers: Urinary tract infection type: acute cystitis Hematuria presence: without hematuria Qualified Code(s): N30.00 - Acute cystitis without hematuria (2) CAD (coronary artery disease) Code(s): I25.10 - ATHSCL HEART DISEASE OF [place] CORONARY ARTERY W/O ANG PCTRS Status: Chronic Qualifiers: Coronary Disease-Associated Artery/Lesion type: [place] artery [place] vs. transplanted heart: [place] heart (3) Hypertension Code(s): I10 - ESSENTIAL (PRIMARY) HYPERTENSION Status: Chronic Qualifiers: Hypertension type: essential hypertension Qualified Code(s): I10 - Essential (primary) hypertension (4) Lupus Code(s): M32.9 - SYSTEMIC LUPUS ERYTHEMATOSUS, UNSPECIFIED Status: Chronic (5) Obesity (BMI 30.0-34.9) Code(s): E66.9 - OBESITY, UNSPECIFIED Status: Chronic (6) Atrial fibrillation with RVR Code(s): I48.91 - UNSPECIFIED ATRIAL FIBRILLATION Status: Acute (7) Asthma exacerbation Code(s): J45.901 - UNSPECIFIED ASTHMA WITH (ACUTE) EXACERBATION Status: Acute - Plan will talk with pulmonary to see if we need a ct with high resolution vs ct with contrast. echo done. she still is in afib will start her on Cardizem. she is on [facility] cardiology to see pt as well as pulmonary. will give her one dose of digoxin. 06/17 will start her on Benadryl and reglan for migraine protocol. she still is in afib and goes in to rvr but does not sustain. May need EP. will continue steroids for now. 3/2 pt still has a headache, will check esr. she states that it is not like her migraine headache. spoke with pulmonary and will get a ct chest. will continue steroids/duonebs and will add IS. she may need EP evaluation. however her episodes of tachycardia has improved.
[2019-06-19] MEDS ORDERED: Fioricet 325/50/40 mg Tablet PO PRN (15:53)
[2019-06-19] MEDS: cefTRIAXone\\ROCEPHIN 1 GM in Sodium Chloride 0.9% 100 ML IVPB SCH (16:18)
--- NOTE | 2019-06-19 16:34 | PDOC.CPN ---
- Subjective Date: 06/19/19 Time: 16:33 Interval history: She is doing well. She remains in afib. - Review of Systems General: denies: fever/chills, weight/appetite/sleep changes, night sweats, fatigue Respiratory: denies: cough, congestion, shortness of breath, exercise intolerance Cardiovascular: denies: chest pain, palpitation, edema, paroxysmal nocturnal dyspnea, orthopnea Gastrointestinal: denies: nausea, vomiting, diarrhea, constipation, abd pain, GI bleeding Musculoskeletal: denies: pain, tenderness, stiffness, swelling, arthritis/ arthralgias Neurological: denies: numbness, syncope, seizure, weakness - Objective Allergies/Adverse Reactions: Allergies Allergy/AdvReac Type Severity Reaction Status Date / Time mirabegron [From Myrbetriq] Allergy Verified 12/03/17 13:25 NSAIDS (Non-Steroidal Allergy Verified 12/03/17 14:16 Anti-Inflamma valsartan [From Diovan] Allergy Rash Verified 12/10/16 12:56 vancomycin Allergy Verified 12/03/17 13:25 Visit Medications: Current Medications Acetaminophen (Tylenol) 650 mg PO Q4H PRN PRN Reason: Headache/Fever/Mild Pain (1-3) Last Admin: 06/19/19 15:24 Dose: 650 mg Acetaminophen/Butalbital/Caffeine (Fioricet) 1 tab PO Q4H PRN PRN Reason: Headache Stop: 06/24/19 15:54 Albuterol/Ipratropium (Duoneb) 3 ml NEB [id number] [facility] Last Admin: 06/19/19 12:43 Dose: 3 ml Amlodipine Besylate (Norvasc) 5 mg PO BID [facility] Last Admin: 06/19/19 09:00 Dose: 5 mg Carvedilol (Coreg) 25 mg PO BID [facility] Last Admin: 06/19/19 09:00 Dose: 25 mg Cholestyramine Resin (Questran Light) 4 gm PO 1000 [facility] Last Admin: 06/19/19 09:02 Dose: 4 gm Digoxin (Lanoxin) 0.25 mg PO QAM [facility] Last Admin: 06/19/19 08:59 Dose: 0.25 mg Diltiazem HCl (Cardizem) 60 mg PO BID [facility] Last Admin: 06/19/19 08:59 Dose: 60 mg Duloxetine HCl (Cymbalta) 30 mg PO DAILY [facility] Last Admin: 06/19/19 08:59 Dose: 30 mg Enoxaparin Sodium (Lovenox) 90 mg SC 0900,2100 [facility] Last Admin: 06/19/19 09:02 Dose: 90 mg Famotidine (Pepcid) 20 mg PO BID [facility] Last Admin: 06/19/19 08:59 Dose: 20 mg Ceftriaxone Sodium 1 gm/ (Sodium Chloride) 100 mls @ 200 mls/hr IVPB Q24HR [facility] Last Admin: 06/19/19 16:18 Dose: 100 mls Ipratropium [place] (Atrovent) 2.5 ml NEB Q6H PRN PRN Reason: SOB &/or Wheezing Ipratropium [place] (Atrovent) 2.5 ml NEB [id number] [facility] Last Admin: 06/19/19 12:46 Dose: Not Given Ondansetron HCl (Zofran) 4 mg IVP Q6H PRN PRN Reason: Nausea/Vomiting Last Admin: 06/18/19 10:19 Dose: 4 mg Opium Tincture (Opium Tincture 10%) 0.6 ml PO BID [facility] Last Admin: 06/19/19 09:38 Dose: 0.6 ml Prednisone (Prednisone) 40 mg PO QAM-WM [facility] Stop: 06/24/19 08:01 Last Admin: 06/19/19 09:00 Dose: 40 mg Pregabalin (Lyrica) 150 mg PO BID [facility] Last Admin: 06/19/19 09:00 Dose: 150 mg Senna/Docusate Sodium (Senokot S) 2 tab PO BIDPRN PRN PRN Reason: Constipation Sodium Chloride (Flush - Normal Saline) 10 ml IVF Q12HR [facility] Last Admin: 06/19/19 09:03 Dose: 10 ml Sodium Chloride (Flush - Normal Saline) 10 ml IVF PRN PRN PRN Reason: Saline Flush Topiramate (Topamax) 25 mg PO BID [facility] Last Admin: 06/19/19 09:00 Dose: 25 mg Vital Signs & Weight: Vital Signs Temp Pulse Resp BP BP Pulse Ox 06/19/19 15:26 97.4 F L 65 16 140/70 97 06/19/19 12:43 65 18 95 06/19/19 11:52 97.6 F 66 16 144/79 H 96 06/19/19 09:00 75 194/98 H 06/19/19 08:59 75 06/19/19 08:00 97.6 F 75 16 194/98 H 95 06/19/19 07:35 80 18 98 Admit Weight 203 lb 6.4 oz Weight 202 lb 11.2 oz - Physical Exam General: alert & oriented x3 HEENT: mucus membranes moist Neck: supple neck Cardiac: irregularly regular Lungs: normal breath sounds Neuro: grossly intact Abdomen: active bowel sounds Extremities: no edema Skin: clear Musculoskeletal: no pain - Labs Result Diagrams: 06/19/19 03:54 06/19/19 03:54 Troponin/CKMB Troponin I 0.015 ng/mL (< 0.028) 06/16/19 18:36 - Telemetry Supraventricular conduction: atrial fibrillation - Assessment/Plan Assessment/Plan: 1. New onset Afib, now rate controlled. 2. CAD, mild on recent cath. 3. HTN 4. UTI 5. Hx of Lupus 6. Asthma PLAN: - Will plan on ODILON [facility] for or wednesday. - Will start flecainide. - Continue full anticoagulation.
[2019-06-19] MEDS: Flecainide 50 MG TAB PO SCH (20:25)
--- NOTE | 2019-06-19 20:59 | PRG ---
DATE OF SERVICE: 06/19/2019 SERVICE: Pulmonary Medicine. INTERVAL HISTORY: The patient is doing really well from respiratory standpoint. She indicates that her breathing and cough are basically the same as yesterday. She denies having made any significant improvement. Otherwise, she is not having any fevers or chills. She remains weak on her feet. She has no complaints otherwise. She does suggest that this is different than her previous flare of lupus, but that was so long ago, that she cannot be certain. PHYSICAL EXAMINATION: VITAL SIGNS: Afebrile, pulse 58, blood pressure 137/67, respirations 14, and saturation 95% on room air. GENERAL: The patient is awake and alert, in no apparent distress. LUNGS: Very good air entry. No prolonged expiratory phase or wheezing appreciated. HEART: Normal rate. Regular. ABDOMEN: Soft, nontender, and nondistended. Bowel sounds are positive. MUSCULOSKELETAL: No cyanosis or clubbing. There is 1 to 2+ pitting in bilateral lower extremities. NEUROLOGIC: Grossly nonfocal. LABORATORY DATA: Hemoglobin 12.1 and ESR 42. Creatinine 0.81 and stable. Urinalysis is positive for pyuria. E coli is growing, which is fairly sensitive organism to the fluoroquinolones, though resistant to penicillins, and cephalosporins. IMAGING STUDIES: No acute cardiopulmonary abnormality. There is not really any subtle interstitial fullness. The left atrium appears to be quite dilated, however. ASSESSMENT: 1. Acute bronchitis, improving. 2. Atrial fibrillation, currently rate controlled. 3. Acute on chronic diastolic heart failure, mild. 4. History of lupus without obvious flare. 5. Gastroesophageal reflux disease. 6. Obstructive sleep apnea, suspected. DISCUSSION AND PLAN: At this point, I do not see a primary lung issue that is contributing to her shortness of breath outside of her acute bronchitis. She can complete a 5-day course of steroids and antibiotics directed at her lung issue. After our function is optimized, she still has complaints of shortness of breath, pulmonary function studies would be reasonable in the outpatient setting. The CT scan was reassuring suggesting no evidence of inflammatory lung disease. She would benefit from a polysomnogram in the outpatient setting, which she can address with her primary care physician. At this point, she has no further requirements for inpatient Pulmonary or Critical Care opinion, and I will sign off. Please call with additional questions or concerns through time. Job ID: [id number]
[2019-06-20] MEDS ORDERED: Furosemide 40 MG/4 ML VIAL SLOW IVP SCH (06:00)
[2019-06-20] MEDS: Famotidine 20 MG TAB PO SCH ×2 (08:32→21:11)
[2019-06-20] MEDS: DULoxetine 30 MG CAP PO SCH (08:32)
[2019-06-20] MEDS: predniSONE 20 MG TAB PO SCH (08:32)
[2019-06-20] MEDS: Digoxin 0.25 MG TAB PO SCH (08:32)
[2019-06-20] MEDS: Amlodipine 5 MG TAB PO SCH ×2 (08:32→21:11)
[2019-06-20] MEDS: Carvedilol 25 MG TAB PO SCH ×2 (08:33→21:12)
[2019-06-20] MEDS: Enoxaparin Sodium 100 MG/ML SYRINGE SC SCH ×2 (08:33→21:12)
[2019-06-20] MEDS: Pregabalin 75 MG CAP PO SCH ×2 (08:33→21:11)
[2019-06-20] MEDS: Flecainide 50 MG TAB PO SCH ×2 (08:33→21:12)
[2019-06-20] MEDS: Opium Tincture 10% (1ml Charge) PO SCH ×2 (09:21→21:12)
[2019-06-20] MEDS: Topiramate 25 MG TAB PO SCH ×2 (09:21→21:12)
[2019-06-20] MEDS: Cholestyramine/Aspartame 4 gm Packet PO SCH (09:22)
--- NOTE | 2019-06-20 16:09 | PRG ---
DATE OF SERVICE: 06/20/2019 SUBJECTIVE: Ms. Fisher is awake and alert. She said she went out walking with her grandson earlier, felt well. OBJECTIVE: VITAL SIGNS: Her blood pressure is 140/80 and pulse in the 60s, it is atrial fibrillation. LUNGS: Clear. CARDIAC: Irregularly irregular. ABDOMEN: Soft and nontender. ASSESSMENT: 1. Persistent atrial fibrillation. 2. Mildly bradycardic. PLAN: 1. We will stop digoxin. She is getting mildly bradycardic. 2. Plan ODILON and cardioversion on with Dr. Palma. Job ID: [id number]
[2019-06-20] MEDS: cefTRIAXone\\ROCEPHIN 1 GM in Sodium Chloride 0.9% 100 ML IVPB SCH (16:56)
--- NOTE | 2019-06-21 06:43 | PDOC.HOSPP ---
- Subjective Encounter Date: 06/20/19 Encounter Time: 09:00 Subjective: pt up in bed feels better today, still has some cough. - Objective Vital Signs & Weight: Vital Signs (12 hours) Temp Pulse Resp BP Pulse Ox 06/21/19 03:48 97.9 F 70 16 131/62 92 L 06/21/19 01:17 71 16 95 06/20/19 21:10 97.8 F 86 20 153/91 H 93 L 06/20/19 19:55 74 16 95 Weight Admit Weight 203 lb 6.4 oz Weight 202 lb 9.6 oz I&O: 06/19/19 06/20/19 06/21/19 06:59 06:59 06:59 Intake Total 1300 2450 1410 Output Total 850 1920 1475 Balance 450 530 -65 Result Diagrams: 06/19/19 03:54 06/19/19 03:54 Hospitalist ROS - Review of Systems Respiratory: reports: cough Cardiovascular: denies: chest pain, palpitations, orthopnea, paroxysmal noc. dyspnea, edema, light headedness, other Gastrointestinal: denies: nausea, vomiting, abdominal pain, diarrhea, constipation, melena, hematochezia, other Genitourinary: denies: dysuria, frequency, incontinence, hematuria, retention, other - Medication Medications: Active Medications Generic Name Dose Route Start Last Admin Trade Name Freq PRN Reason Stop Dose Admin Acetaminophen 650 mg 06/16/19 16:23 06/19/19 15:24 Tylenol PO 650 mg Q4H PRN Administration Headache/Fever/Mild Pain (1-3) Acetaminophen/Butalbital/Caffeine 1 tab 06/19/19 15:53 06/20/19 02:31 Fioricet PO 06/24/19 15:54 1 tab Q4H PRN Administration Headache Albuterol/Ipratropium 3 ml 06/18/19 01:00 06/21/19 01:17 Duoneb NEB 3 ml [id number] NATHANAEL Administration Amlodipine Besylate 5 mg 06/18/19 21:00 06/20/19 21:11 Norvasc PO 5 mg BID NATHANAEL Administration Carvedilol 25 mg 06/17/19 21:00 06/20/19 21:12 Coreg PO 25 mg BID NATHANAEL Administration Cholestyramine Resin 4 gm 06/17/19 10:00 06/20/19 09:22 Questran Light PO 4 gm 1000 NATHANAEL Administration Diltiazem HCl 60 mg 06/17/19 21:00 06/20/19 21:11 Cardizem PO 60 mg BID NATHANAEL Administration Duloxetine HCl 30 mg 06/17/19 09:00 06/20/19 08:32 Cymbalta PO 30 mg DAILY NATHANAEL Administration Enoxaparin Sodium 90 mg 06/17/19 09:00 06/20/19 21:12 Lovenox SC 90 mg 0900,2100 NATHANAEL Administration Famotidine 20 mg 06/17/19 21:00 06/20/19 21:11 Pepcid PO 20 mg BID NATHANAEL Administration Flecainide Acetate 50 mg 06/19/19 21:00 06/20/19 21:12 Tambocor PO 50 mg Q12HR NATHANAEL Administration Ceftriaxone Sodium 1 gm/ 100 mls @ 200 mls/hr 06/17/19 16:30 06/20/19 16:56 Sodium Chloride IVPB 100 mls Q24HR NATHANAEL Administration Ondansetron HCl 4 mg 06/18/19 09:30 06/18/19 10:19 Zofran IVP 4 mg Q6H PRN Administration Nausea/Vomiting Opium Tincture 0.6 ml 06/17/19 09:00 06/20/19 21:12 Opium Tincture 10% PO 0.6 ml BID NATHANAEL Administration Prednisone 40 mg 06/18/19 08:00 06/20/19 08:32 Prednisone PO 06/24/19 08:01 40 mg QAM-WM NATHANAEL Administration Pregabalin 150 mg 06/17/19 09:00 06/20/19 21:11 Lyrica PO 150 mg BID NATHANAEL Administration Sodium Chloride 10 ml 06/18/19 21:00 06/20/19 21:12 Flush - Normal Saline IVF 10 ml Q12HR NATHANAEL Administration Topiramate 25 mg 06/17/19 09:00 06/20/19 21:12 Topamax PO 25 mg BID NATHANAEL Administration - Exam ENT: negative: normocephalic atraumatic, no oropharyngeal lesions, moist mucosa , dry oral mucosa Neck: negative: supple, symmetric, no JVD, no thyromegaly, no lymphadenopathy, no carotid bruit, JVD Heart: irregular Respiratory: rhonchi, wheezes Gastrointestinal: negative: soft, non-tender, non-distended, normal bowel sounds , no palpable masses, no hepatomegaly, no splenomegaly, no bruit, no guarding, no rigidity, tender to palpation, distended, diminished bowl sounds, voluntary guarding Extremities - other findings: mild lower ext edema Hosp A/P (1) UTI (urinary tract infection) Status: Acute Qualifiers: Urinary tract infection type: acute cystitis Hematuria presence: without hematuria Qualified Code(s): N30.00 - Acute cystitis without hematuria (2) CAD (coronary artery disease) Code(s): I25.10 - ATHSCL HEART DISEASE OF [place] CORONARY ARTERY W/O ANG PCTRS Status: Chronic Qualifiers: Coronary Disease-Associated Artery/Lesion type: [place] artery [place] vs. transplanted heart: [place] heart (3) Hypertension Code(s): I10 - ESSENTIAL (PRIMARY) HYPERTENSION Status: Chronic Qualifiers: Hypertension type: essential hypertension Qualified Code(s): I10 - Essential (primary) hypertension (4) Lupus Code(s): M32.9 - SYSTEMIC LUPUS ERYTHEMATOSUS, UNSPECIFIED Status: Chronic (5) Obesity (BMI 30.0-34.9) Code(s): E66.9 - OBESITY, UNSPECIFIED Status: Chronic (6) Atrial fibrillation with RVR Code(s): I48.91 - UNSPECIFIED ATRIAL FIBRILLATION Status: Acute (7) Asthma exacerbation Code(s): J45.901 - UNSPECIFIED ASTHMA WITH (ACUTE) EXACERBATION Status: Acute - Plan will talk with pulmonary to see if we need a ct with high resolution vs ct with contrast. echo done. she still is in afib will start her on Cardizem. she is on AC cardiology to see pt as well as pulmonary. will give her one dose of digoxin. 06/17 will start her on Benadryl and reglan for migraine protocol. she still is in afib and goes in to rvr but does not sustain. May need EP. will continue steroids for now. 06/18 pt still has a headache, will check esr. she states that it is not like her migraine headache. spoke with pulmonary and will get a ct chest. will continue steroids/duonebs and will add IS. she may need EP evaluation. however her episodes of tachycardia has improved. 06/[address] no acute findings. she is going for ODILON cardio conversion. will continue current SC AC then change to DOAC. she clinically feels much better. Her iv infiltrated yesterday will see if she can have a mid line. will change her abx to po.
[2019-06-21] MEDS: Enoxaparin Sodium 100 MG/ML SYRINGE SC SCH ×2 (08:43→20:33)
[2019-06-21] MEDS: Opium Tincture 10% (1ml Charge) PO SCH ×2 (08:43→20:28)
[2019-06-21] MEDS: predniSONE 20 MG TAB PO SCH (08:44)
[2019-06-21] MEDS: Amlodipine 5 MG TAB PO SCH ×2 (08:44→20:30)
[2019-06-21] MEDS: Nitrofurantoin Macrocrystal 50 MG CAP PO SCH ×4 (08:44→20:29)
[2019-06-21] MEDS: Carvedilol 25 MG TAB PO SCH ×2 (08:44→20:30)
[2019-06-21] MEDS: Topiramate 25 MG TAB PO SCH ×2 (08:45→20:29)
[2019-06-21] MEDS: Famotidine 20 MG TAB PO SCH ×2 (08:45→20:29)
[2019-06-21] MEDS: DULoxetine 30 MG CAP PO SCH (08:45)
[2019-06-21] MEDS: Pregabalin 75 MG CAP PO SCH ×2 (08:45→20:31)
[2019-06-21] MEDS: Flecainide 50 MG TAB PO SCH ×2 (08:45→20:29)
[2019-06-21] MEDS: Cholestyramine/Aspartame 4 gm Packet PO SCH (09:39)
--- NOTE | 2019-06-21 18:01 | PDOC.HOSPP ---
- Subjective Encounter Date: 06/21/19 Encounter Time: 09:00 Subjective: pt up in bed feels well today. - Objective Vital Signs & Weight: Vital Signs (12 hours) Temp Pulse Resp BP Pulse Ox 06/21/19 16:55 97.9 F 68 18 158/97 H 94 L 06/21/19 13:34 59 L 16 95 06/21/19 11:00 97.6 F 85 18 113/60 91 L 06/21/19 07:55 97.4 F L 63 18 168/82 H 94 L 06/21/19 07:44 96 06/21/19 07:43 62 16 96 Weight Admit Weight 203 lb 6.4 oz Weight 202 lb 9.6 oz I&O: 06/20/19 06/21/19 06/22/19 06:59 06:59 06:59 Intake Total 2450 1410 Output Total 1920 1475 Balance 530 65 Result Diagrams: 06/19/19 03:54 06/19/19 03:54 Hospitalist ROS - Review of Systems Respiratory: reports: shortness of breath. denies: cough, dry, hemoptysis, SOB with excertion, pleuritic pain, sputum, wheezing, other Cardiovascular: denies: chest pain, palpitations, orthopnea, paroxysmal noc. dyspnea, edema, light headedness, other Gastrointestinal: denies: nausea, vomiting, abdominal pain, diarrhea, constipation, melena, hematochezia, other - Medication Medications: Active Medications Generic Name Dose Route Start Last Admin Trade Name Freq PRN Reason Stop Dose Admin Acetaminophen 650 mg 06/16/19 16:23 06/19/19 15:24 Tylenol PO 650 mg Q4H PRN Administration Headache/Fever/Mild Pain (1-3) Acetaminophen/Butalbital/Caffeine 1 tab 06/19/19 15:53 06/20/19 02:31 Fioricet PO 06/24/19 15:54 1 tab Q4H PRN Administration Headache Albuterol/Ipratropium 3 ml 06/18/19 01:00 06/21/19 13:34 Duoneb NEB 3 ml [id number] NATHANAEL Administration Amlodipine Besylate 5 mg 06/18/19 21:00 06/21/19 08:44 Norvasc PO 5 mg BID NATHANAEL Administration Carvedilol 25 mg 06/17/19 21:00 06/21/19 08:44 Coreg PO 25 mg BID NATHANAEL Administration Cholestyramine Resin 4 gm 06/17/19 10:00 06/21/19 09:39 Questran Light PO 4 gm 1000 NATHANAEL Administration Diltiazem HCl 60 mg 06/17/19 21:00 06/21/19 08:44 Cardizem PO 60 mg BID NATHANAEL Administration Duloxetine HCl 30 mg 06/17/19 09:00 06/21/19 08:45 Cymbalta PO 30 mg DAILY NATHANAEL Administration Enoxaparin Sodium 90 mg 06/17/19 09:00 06/21/19 08:43 Lovenox SC 90 mg 0900,2100 NATHANAEL Administration Famotidine 20 mg 06/17/19 21:00 06/21/19 08:45 Pepcid PO 20 mg BID NATHANAEL Administration Flecainide Acetate 50 mg 06/19/19 21:00 06/21/19 08:45 Tambocor PO 50 mg Q12HR NATHANAEL Administration Nitrofurantoin Macrocrystals 50 mg 06/21/19 09:00 06/21/19 16:37 Macrodantin PO 50 mg QID NATHANAEL Administration Ondansetron HCl 4 mg 06/18/19 09:30 06/18/19 10:19 Zofran IVP 4 mg Q6H PRN Administration Nausea/Vomiting Opium Tincture 0.6 ml 06/17/19 09:00 06/21/19 08:43 Opium Tincture 10% PO 0.6 ml BID NATHANAEL Administration Prednisone 40 mg 06/18/19 08:00 06/21/19 08:44 Prednisone PO 06/24/19 08:01 40 mg QAM-WM NATHANAEL Administration Pregabalin 150 mg 06/17/19 09:00 06/21/19 08:45 Lyrica PO 150 mg BID NATHANAEL Administration Sodium Chloride 10 ml 06/18/19 21:00 06/21/19 08:45 Flush - Normal Saline IVF 10 ml Q12HR NATHANAEL Administration Topiramate 25 mg 06/17/19 09:00 06/21/19 08:45 Topamax PO 25 mg BID NATHANAEL Administration - Exam Neck: negative: supple, symmetric, no JVD, no thyromegaly, no lymphadenopathy, no carotid bruit, JVD Heart: irregular. negative: RRR, no murmur, no gallops, no rubs, normal peripheral pulses, diminshed peripheral pulses, murmur present, II/IV, III/IV Respiratory: rhonchi, wheezes Gastrointestinal: negative: soft, non-tender, non-distended, normal bowel sounds , no palpable masses, no hepatomegaly, no splenomegaly, no bruit, no guarding, no rigidity, tender to palpation, distended, diminished bowl sounds, voluntary guarding Hosp A/P (1) UTI (urinary tract infection) Status: Acute Qualifiers: Urinary tract infection type: acute cystitis Hematuria presence: without hematuria Qualified Code(s): N30.00 - Acute cystitis without hematuria (2) CAD (coronary artery disease) Code(s): I25.10 - ATHSCL HEART DISEASE OF [place] CORONARY ARTERY W/O ANG PCTRS Status: Chronic Qualifiers: Coronary Disease-Associated Artery/Lesion type: [place] artery [place] vs. transplanted heart: [place] heart (3) Hypertension Code(s): I10 - ESSENTIAL (PRIMARY) HYPERTENSION Status: Chronic Qualifiers: Hypertension type: essential hypertension Qualified Code(s): I10 - Essential (primary) hypertension (4) Lupus Code(s): M32.9 - SYSTEMIC LUPUS ERYTHEMATOSUS, UNSPECIFIED Status: Chronic (5) Obesity (BMI 30.0-34.9) Code(s): E66.9 - OBESITY, UNSPECIFIED Status: Chronic (6) Atrial fibrillation with RVR Code(s): I48.91 - UNSPECIFIED ATRIAL FIBRILLATION Status: Acute (7) Asthma exacerbation Code(s): J45.901 - UNSPECIFIED ASTHMA WITH (ACUTE) EXACERBATION Status: Acute - Plan will talk with pulmonary to see if we need a ct with high resolution vs ct with contrast. echo done. she still is in afib will start her on Cardizem. she is on AC cardiology to see pt as well as pulmonary. will give her one dose of digoxin. 06/17 will start her on Benadryl and reglan for migraine protocol. she still is in afib and goes in to rvr but does not sustain. May need EP. will continue steroids for now. 06/18 pt still has a headache, will check esr. she states that it is not like her migraine headache. spoke with pulmonary and will get a ct chest. will continue steroids/duonebs and will add IS. she may need EP evaluation. however her episodes of tachycardia has improved. 3/[address] no acute findings. she is going for ODILON cardio conversion. will continue current SC AC then change to DOAC. she clinically feels much better. Her iv infiltrated yesterday will see if she can have a mid line. will change her abx to po. 3/ pt's urine cx is resistant to ceftriaxone, she is on flecanide which can prolong qtc. will switch to macrobid. she is going for ODILON and cardioversion in am. will need to go home with DOAC.
--- NOTE | 2019-06-21 18:27 | PDOC.CPN ---
- Subjective Date: 06/21/19 Time: 18:27 Interval history: She is doing well. She is SOB with exertion. - Review of Systems General: denies: fever/chills, weight/appetite/sleep changes, night sweats, fatigue Respiratory: reports: shortness of breath. denies: cough, congestion, exercise intolerance Cardiovascular: denies: chest pain, palpitation, edema, paroxysmal nocturnal dyspnea, orthopnea Gastrointestinal: denies: nausea, vomiting, diarrhea, constipation, abd pain, GI bleeding Musculoskeletal: denies: pain, tenderness, stiffness, swelling, arthritis/ arthralgias Neurological: denies: numbness, syncope, seizure, weakness - Objective Allergies/Adverse Reactions: Allergies Allergy/AdvReac Type Severity Reaction Status Date / Time mirabegron [From Myrbetriq] Allergy Verified 12/03/17 13:25 NSAIDS (Non-Steroidal Allergy Verified 12/03/17 14:16 Anti-Inflamma valsartan [From Diovan] Allergy Rash Verified 12/10/16 12:56 vancomycin Allergy Verified 12/03/17 13:25 Visit Medications: Current Medications Acetaminophen (Tylenol) 650 mg PO Q4H PRN PRN Reason: Headache/Fever/Mild Pain (1-3) Last Admin: 06/19/19 15:24 Dose: 650 mg Acetaminophen/Butalbital/Caffeine (Fioricet) 1 tab PO Q4H PRN PRN Reason: Headache Stop: 06/24/19 15:54 Last Admin: 06/20/19 02:31 Dose: 1 tab Albuterol/Ipratropium (Duoneb) 3 ml NEB [id number] [facility] Last Admin: 06/21/19 13:34 Dose: 3 ml Amlodipine Besylate (Norvasc) 5 mg PO BID [facility] Last Admin: 06/21/19 08:44 Dose: 5 mg Carvedilol (Coreg) 25 mg PO BID [facility] Last Admin: 06/21/19 08:44 Dose: 25 mg Cholestyramine Resin (Questran Light) 4 gm PO 1000 [facility] Last Admin: 06/21/19 09:39 Dose: 4 gm Diltiazem HCl (Cardizem) 60 mg PO BID [facility] Last Admin: 06/21/19 08:44 Dose: 60 mg Duloxetine HCl (Cymbalta) 30 mg PO DAILY [facility] Last Admin: 06/21/19 08:45 Dose: 30 mg Enoxaparin Sodium (Lovenox) 90 mg SC 0900,2100 [facility] Last Admin: 06/21/19 08:43 Dose: 90 mg Famotidine (Pepcid) 20 mg PO BID [facility] Last Admin: 06/21/19 08:45 Dose: 20 mg Flecainide Acetate (Tambocor) 50 mg PO Q12HR [facility] Last Admin: 06/21/19 08:45 Dose: 50 mg Ipratropium [place] (Atrovent) 2.5 ml NEB Q6H PRN PRN Reason: SOB &/or Wheezing Nitrofurantoin Macrocrystals (Macrodantin) 50 mg PO QID [facility] Last Admin: 06/21/19 16:37 Dose: 50 mg Ondansetron HCl (Zofran) 4 mg IVP Q6H PRN PRN Reason: Nausea/Vomiting Last Admin: 06/18/19 10:19 Dose: 4 mg Opium Tincture (Opium Tincture 10%) 0.6 ml PO BID [facility] Last Admin: 06/21/19 08:43 Dose: 0.6 ml Prednisone (Prednisone) 40 mg PO QA-[facility] Stop: 06/24/19 08:01 Last Admin: 06/21/19 08:44 Dose: 40 mg Pregabalin (Lyrica) 150 mg PO BID [facility] Last Admin: 06/21/19 08:45 Dose: 150 mg Senna/Docusate Sodium (Senokot S) 2 tab PO BIDPRN PRN PRN Reason: Constipation Sodium Chloride (Flush - Normal Saline) 10 ml IVF Q12HR [facility] Last Admin: 06/21/19 08:45 Dose: 10 ml Sodium Chloride (Flush - Normal Saline) 10 ml IVF PRN PRN PRN Reason: Saline Flush Topiramate (Topamax) 25 mg PO BID [facility] Last Admin: 06/21/19 08:45 Dose: 25 mg Vital Signs & Weight: Vital Signs Temp Pulse Resp BP Pulse Ox 06/21/19 16:55 97.9 F 68 18 158/97 H 94 L 06/21/19 13:34 59 L 16 95 06/21/19 11:00 97.6 F 85 18 113/60 91 L 06/21/19 07:55 97.4 F L 63 18 168/82 H 94 L 03/04/20 07:44 96 06/21/19 07:43 62 16 96 Admit Weight 203 lb 6.4 oz Weight 202 lb 9.6 oz - Physical Exam General: alert & oriented x3 HEENT: mucus membranes moist Neck: supple neck Cardiac: irregularly regular Lungs: wheezes, scattered rhonchi Neuro: grossly intact Abdomen: active bowel sounds Extremities: no edema Skin: clear Musculoskeletal: no pain - Labs Result Diagrams: 06/19/19 03:54 06/19/19 03:54 Troponin/CKMB Troponin I 0.015 ng/mL (< 0.028) 06/16/19 18:36 - Telemetry Supraventricular conduction: atrial fibrillation - Assessment/Plan Assessment/Plan: 1. New onset Afib, now rate controlled. 2. CAD, mild on recent cath. 3. HTN 4. UTI 5. Hx of Lupus 6. Asthma PLAN: - Will plan on ODILON Cardiversion tomorrow. - Continue flecainide. - Continue full anticoagulation.
[2019-06-22 04:46] LABS: #Basophils 0.1 thou/uL (0.0-0.2); #Eosinphils 0.1 thou/uL (0.0-0.7); #Lymphocytes 1.8 thou/uL (1.20-3.40); #Monocytes 0.7 thou/uL (0.11-0.59); #Neutrophils 5.1 thou/uL (1.40-6.50); %Basophils 0.7 % (0.0-1.0); %Eosinophils 0.8 % (0.0-10.0); %Lymphocytes 23.6 % (21.0-51.0); %Neutrophils 65.9 % (42.0-75.0); Hemoglobin 13.4 g/dL (12.0-16.0); Mean Corpuscular HGB CONC 31.1 g/dL (32.0-36.0); Mean Corpuscular Hemoglobin 26.9 pg (27.0-31.0); Mean Corpuscular Volume 86.5 fL (78.0-98.0); Platelet Count 191 thou/uL (130-400); RBC Distribution Width 15.5 % (11.5-14.5); Red Blood Cell (RBC) Count 4.97 mill/uL (4.20-5.40); White Blood Cell (WBC) Count 7.7 thou/uL (4.8-10.8)
[2019-06-22 05:09] LABS: Anion Gap 11 mmol/L (10-20); BUN (Urea Nitrogen) 24 mg/dL (9.8-20.1); Calc. Creatinine Clearance 87 mL/min (70-130); Carbon Dioxide 25 mmol/L (23-31); Chloride 107 mmol/L (98-107); Estimated GFR-MDRD 66; Glucose 108 mg/dL (83-110); Potassium 3.5 mmol/L (3.5-5.1); Sodium 139 mmol/L (136-145)
[2019-06-22] MEDS: predniSONE 20 MG TAB PO SCH (08:33)
[2019-06-22] MEDS: Amlodipine 5 MG TAB PO SCH ×2 (08:33→20:30)
[2019-06-22] MEDS: Carvedilol 25 MG TAB PO SCH ×2 (08:34→20:30)
[2019-06-22] MEDS: DULoxetine 30 MG CAP PO SCH (08:35)
[2019-06-22] MEDS: Enoxaparin Sodium 100 MG/ML SYRINGE SC SCH ×2 (08:35→20:29)
[2019-06-22] MEDS: Opium Tincture 10% (1ml Charge) PO SCH ×2 (08:35→20:28)
[2019-06-22] MEDS: Flecainide 50 MG TAB PO SCH ×2 (08:35→20:29)
[2019-06-22] MEDS: Nitrofurantoin Macrocrystal 50 MG CAP PO SCH ×4 (08:35→20:29)
[2019-06-22] MEDS: Famotidine 20 MG TAB PO SCH ×2 (08:35→20:30)
[2019-06-22] MEDS: Topiramate 25 MG TAB PO SCH ×2 (08:36→20:30)
[2019-06-22] MEDS: Pregabalin 75 MG CAP PO SCH ×2 (08:36→20:30)
[2019-06-22] MEDS: Cholestyramine/Aspartame 4 gm Packet PO SCH (08:37)
[2019-06-22] MEDS: Acetaminophen 325 MG TAB PO PRN (08:37)
[2019-06-22] MEDS ORDERED: hydrALAZINE 20 MG/ML VIAL SLOW IVP SCH (10:15)
[2019-06-22] MEDS ORDERED: PROPOFOL 200 MG/20 ML VIAL ONE (12:02)
[2019-06-22] MEDS ORDERED: Lidocaine 1% PF 5 ML VIAL ONE (12:02)
[2019-06-22] MEDS ORDERED: PROPOFOL 20 ML ONE (13:00)
[2019-06-22 14:44] VITALS: BMI 31.7
[2019-06-22 17:03] LABS: ANA Symphony (Qualitative) Negative (Negative); ANA Symphony (Quantitative) 0.3 Ratio (< 0.7 Negative); dsDNA IgG Antibody 0.8 IU/mL (<10 Negative)
--- NOTE | 2019-06-22 17:16 | PDOC.HOSPP ---
- Subjective Encounter Date: 06/22/19 Encounter Time: 10:00 Subjective: Pt was seen for followup re: UTI. Reports occ shortness of breath. Feels better. - Objective Vital Signs & Weight: Vital Signs (12 hours) Temp Pulse Resp BP BP Pulse Ox 06/22/19 15:25 97.8 F 61 18 158/92 H 96 06/22/19 14:21 97.6 F 57 L 18 143/65 H 95 06/22/19 11:00 97.7 F 60 16 119/71 97 06/22/19 10:24 133/79 06/22/19 09:43 187/103 H 06/22/19 08:33 77 143/101 H 06/22/19 07:46 95 06/22/19 07:32 84 16 94 L 06/22/19 07:25 97.7 F 64 18 178/94 H 93 L Weight Admit Weight 203 lb 6.4 oz Weight 202 lb 9.6 oz I&O: 06/21/19 06/22/19 06/23/19 06:59 06:59 06:59 Intake Total 1410 1500 75 Output Total 1475 1450 0 Balance -65 50 75 Result Diagrams: 06/22/19 04:24 06/22/19 04:24 Additional Labs: Labs and MARs reviewed by me EKG Reviewed by me: Yes (Tele: jacky benitez) Hospitalist ROS - Review of Systems Respiratory: reports: SOB with excertion Cardiovascular: reports: palpitations. denies: chest pain, orthopnea, paroxysmal noc. dyspnea, edema, light headedness Gastrointestinal: denies: nausea, vomiting, abdominal pain, diarrhea, constipation, melena, hematochezia - Medication Medications: Active Medications Generic Name Dose Route Start Last Admin Trade Name Freq PRN Reason Stop Dose Admin Acetaminophen 650 mg 06/16/19 16:23 06/22/19 08:37 Tylenol PO 650 mg Q4H PRN Administration Headache/Fever/Mild Pain (1-3) Acetaminophen/Butalbital/Caffeine 1 tab 06/19/19 15:53 06/20/19 02:31 Fioricet PO 06/24/19 15:54 1 tab Q4H PRN Administration Headache Albuterol/Ipratropium 3 ml 06/18/19 01:00 06/22/19 13:22 Duoneb NEB Not Given [id number] NATHANAEL Amlodipine Besylate 5 mg 06/18/19 21:00 06/22/19 08:33 Norvasc PO 5 mg BID NATHANAEL Administration Carvedilol 25 mg 06/17/19 21:00 06/22/19 08:34 Coreg PO 25 mg BID NATHANAEL Administration Cholestyramine Resin 4 gm 06/17/19 10:00 06/22/19 08:37 Questran Light PO 4 gm 1000 NATHANAEL Administration Diltiazem HCl 60 mg 06/17/19 21:00 06/22/19 08:35 Cardizem PO 60 mg BID NATHANAEL Administration Duloxetine HCl 30 mg 06/17/19 09:00 06/22/19 08:35 Cymbalta PO 30 mg DAILY NATHANAEL Administration Enoxaparin Sodium 90 mg 06/17/19 09:00 06/22/19 08:35 Lovenox SC 90 mg 0900,2100 NATHANAEL Administration Famotidine 20 mg 06/17/19 21:00 06/22/19 08:35 Pepcid PO 20 mg BID NATHANAEL Administration Flecainide Acetate 50 mg 06/19/19 21:00 06/22/19 08:35 Tambocor PO 50 mg Q12HR NATHANAEL Administration Nitrofurantoin Macrocrystals 50 mg 06/21/19 09:00 06/22/19 14:58 Macrodantin PO 50 mg QID NATHANAEL Administration Ondansetron HCl 4 mg 06/18/19 09:30 06/18/19 10:19 Zofran IVP 4 mg Q6H PRN Administration Nausea/Vomiting Opium Tincture 0.6 ml 06/17/19 09:00 06/22/19 08:35 Opium Tincture 10% PO 0.6 ml BID NATHANAEL Administration Prednisone 40 mg 06/18/19 08:00 06/22/19 08:33 Prednisone PO 06/24/19 08:01 40 mg QAM-WM NATHANAEL Administration Pregabalin 150 mg 06/17/19 09:00 06/22/19 08:36 Lyrica PO 150 mg BID NATHANAEL Administration Sodium Chloride 10 ml 06/18/19 21:00 06/22/19 08:36 Flush - Normal Saline IVF 10 ml Q12HR NATHANAEL Administration Topiramate 25 mg 06/17/19 09:00 03/05/20 08:36 Topamax PO 25 mg BID NATHANAEL Administration - Exam General - other findings: Obese Eye: anicteric sclera ENT: moist mucosa Neck: no carotid bruit Heart: no rubs, irregular Respiratory: CTAB Gastrointestinal: soft, non-tender Skin: no rashes Psychiatric: normal affect, normal behavior Hosp A/P - Plan - Assessment 1) UTI (urinary tract infection) Status: Acute Qualifiers: Urinary tract infection type: acute cystitis Hematuria presence: without hematuria Qualified Code(s): N30.00 - Acute cystitis without hematuria (2) CAD (coronary artery disease) Code(s): I25.10 - ATHSCL HEART DISEASE OF [place] CORONARY ARTERY W/O ANG PCTRS Status: Chronic Qualifiers: Coronary Disease-Associated Artery/Lesion type: [place] artery [place] vs. transplanted heart: [place] heart (3) Hypertension Code(s): I10 - ESSENTIAL (PRIMARY) HYPERTENSION Status: Chronic Qualifiers: Hypertension type: essential hypertension Qualified Code(s): I10 - Essential (primary) hypertension (4) Lupus Code(s): M32.9 - SYSTEMIC LUPUS ERYTHEMATOSUS, UNSPECIFIED Status: Chronic (5) Obesity (BMI 30.0-34.9) Code(s): E66.9 - OBESITY, UNSPECIFIED Status: Chronic (6) Atrial fibrillation with RVR Code(s): I48.91 - UNSPECIFIED ATRIAL FIBRILLATION Status: Resolved (7) Asthma exacerbation Code(s): J45.901 - UNSPECIFIED ASTHMA WITH (ACUTE) EXACERBATION Status: Acute - Plan continue nitrofurantoin Plan for ODILON/cardioversion today continue flecainide A. fib rate-controlled today. Continue PRN IV hydralazine.
[2019-06-23 04:44] LABS: #Eosinphils 0.1 thou/uL (0.0-0.7); #Lymphocytes 1.7 thou/uL (1.20-3.40); #Monocytes 0.7 thou/uL (0.11-0.59); #Neutrophils 4.9 thou/uL (1.40-6.50); %Basophils 0.4 % (0.0-1.0); %Eosinophils 0.7 % (0.0-10.0); %Lymphocytes 22.7 % (21.0-51.0); %Monocytes 9.5 % (0.0-10.0); %Neutrophils 66.8 % (42.0-75.0); Hemoglobin 12.8 g/dL (12.0-16.0); Mean Corpuscular HGB CONC 31.3 g/dL (32.0-36.0); Mean Corpuscular Hemoglobin 27.2 pg (27.0-31.0); Mean Platelet Volume 9.1 fL (7.4-10.4); Platelet Count 171 thou/uL (130-400); RBC Distribution Width 15.6 % (11.5-14.5); White Blood Cell (WBC) Count 7.3 thou/uL (4.8-10.8)
[2019-06-23 05:08] LABS: Anion Gap 9 mmol/L (10-20); BUN (Urea Nitrogen) 20 mg/dL (9.8-20.1); Calc. Creatinine Clearance 93 mL/min (70-130); Calcium 8.9 mg/dL (7.8-10.44); Carbon Dioxide 26 mmol/L (23-31); Chloride 109 mmol/L (98-107); Estimated GFR-MDRD 72; Glucose 95 mg/dL (83-110); Potassium 3.9 mmol/L (3.5-5.1); Sodium 140 mmol/L (136-145)
[2019-06-23] MEDS: Acetaminophen 325 MG TAB PO PRN (05:58)
[2019-06-23] MEDS: predniSONE 20 MG TAB PO SCH (08:40)
[2019-06-23] MEDS: Amlodipine 5 MG TAB PO SCH (08:41)
[2019-06-23] MEDS: DULoxetine 30 MG CAP PO SCH (08:44)
[2019-06-23] MEDS: Carvedilol 25 MG TAB PO SCH (08:44)
[2019-06-23] MEDS: Enoxaparin Sodium 100 MG/ML SYRINGE SC SCH (08:44)
[2019-06-23] MEDS: Famotidine 20 MG TAB PO SCH (08:45)
[2019-06-23] MEDS: Pregabalin 75 MG CAP PO SCH (08:45)
[2019-06-23] MEDS: Opium Tincture 10% (1ml Charge) PO SCH (08:45)
[2019-06-23] MEDS: Flecainide 50 MG TAB PO SCH (08:45)
[2019-06-23] MEDS: Nitrofurantoin Macrocrystal 50 MG CAP PO SCH ×2 (08:45→13:02)
[2019-06-23] MEDS: Topiramate 25 MG TAB PO SCH (08:46)
[2019-06-23] MEDS: Cholestyramine/Aspartame 4 gm Packet PO SCH (08:46)
[2019-06-23 11:28] VITALS: TEMP 97.6
--- NOTE | 2019-06-23 12:29 | PDOC.CPN ---
- Subjective Date: 06/23/19 Time: 12:28 Interval history: She is doing well. Remains in sinus. - Review of Systems General: denies: fever/chills, weight/appetite/sleep changes, night sweats, fatigue Respiratory: denies: cough, congestion, shortness of breath, exercise intolerance Cardiovascular: denies: chest pain, palpitation, edema, paroxysmal nocturnal dyspnea, orthopnea Gastrointestinal: denies: nausea, vomiting, diarrhea, constipation, abd pain, GI bleeding Musculoskeletal: denies: pain, tenderness, stiffness, swelling, arthritis/ arthralgias Neurological: denies: numbness, syncope, seizure, weakness - Objective Allergies/Adverse Reactions: Allergies Allergy/AdvReac Type Severity Reaction Status Date / Time mirabegron [From Myrbetriq] Allergy Verified 12/03/17 13:25 NSAIDS (Non-Steroidal Allergy Verified 12/03/17 14:16 Anti-Inflamma valsartan [From Diovan] Allergy Rash Verified 12/10/16 12:56 vancomycin Allergy Verified 12/03/17 13:25 Visit Medications: Current Medications Acetaminophen (Tylenol) 650 mg PO Q4H PRN PRN Reason: Headache/Fever/Mild Pain (1-3) Last Admin: 06/23/19 05:58 Dose: 650 mg Acetaminophen/Butalbital/Caffeine (Fioricet) 1 tab PO Q4H PRN PRN Reason: Headache Stop: 06/24/19 15:54 Last Admin: 06/20/19 02:31 Dose: 1 tab Albuterol/Ipratropium (Duoneb) 3 ml NEB C4NP-BC [facility] Last Admin: 06/23/19 08:24 Dose: 3 ml Carvedilol (Coreg) 25 mg PO BID [facility] Last Admin: 06/23/19 08:44 Dose: 25 mg Cholestyramine Resin (Questran Light) 4 gm PO 1000 [facility] Last Admin: 06/23/19 08:46 Dose: 4 gm Diltiazem HCl (Cardizem Cd) 120 mg PO DAILY [facility] Duloxetine HCl (Cymbalta) 30 mg PO DAILY [facility] Last Admin: 06/23/19 08:44 Dose: 30 mg Duloxetine HCl (Cymbalta) 60 mg PO HS [facility] Famotidine (Pepcid) 20 mg PO BID [facility] Last Admin: 03/06/20 08:45 Dose: 20 mg Flecainide Acetate (Tambocor) 50 mg PO Q12HR [facility] Last Admin: 06/23/19 08:45 Dose: 50 mg Ipratropium [place] (Atrovent) 2.5 ml NEB Q6H PRN PRN Reason: SOB &/or Wheezing Nitrofurantoin Macrocrystals (Macrodantin) 50 mg PO QID [facility] Last Admin: 06/23/19 08:45 Dose: 50 mg Ondansetron HCl (Zofran) 4 mg IVP Q6H PRN PRN Reason: Nausea/Vomiting Last Admin: 06/18/19 10:19 Dose: 4 mg Opium Tincture (Opium Tincture 10%) 0.6 ml PO BID [facility] Last Admin: 06/23/19 08:45 Dose: 0.6 ml Prednisone (Prednisone) 40 mg PO QA-[facility] Stop: 06/24/19 08:01 Last Admin: 06/23/19 08:40 Dose: 40 mg Pregabalin (Lyrica) 150 mg PO BID [facility] Last Admin: 06/23/19 08:45 Dose: 150 mg Senna/Docusate Sodium (Senokot S) 2 tab PO BIDPRN PRN PRN Reason: Constipation Sodium Chloride (Flush - Normal Saline) 10 ml IVF Q12HR [facility] Last Admin: 06/23/19 08:46 Dose: Not Given Sodium Chloride (Flush - Normal Saline) 10 ml IVF PRN PRN PRN Reason: Saline Flush Topiramate (Topamax) 25 mg PO BID [facility] Last Admin: 06/23/19 08:46 Dose: 25 mg Vital Signs & Weight: Vital Signs Temp Pulse Resp BP BP Pulse Ox 06/23/19 11:21 97.6 F 64 18 160/78 H 96 06/23/19 08:41 62 178/88 H 06/23/19 07:50 97.5 F L 60 18 172/85 H 95 06/23/19 04:00 97.4 F L 60 18 160/73 H 95 Admit Weight 203 lb 6.4 oz Weight 202 lb 9.6 oz - Physical Exam General: alert & oriented x3 HEENT: mucus membranes moist Neck: supple neck Cardiac: regular rate and rhythm Lungs: normal breath sounds Neuro: grossly intact Abdomen: active bowel sounds Extremities: no edema Skin: clear Musculoskeletal: no pain - Labs Result Diagrams: 06/23/19 04:20 06/23/19 04:20 Troponin/CKMB Troponin I 0.015 ng/mL (< 0.028) 06/16/19 18:36 - Telemetry Sinus rhythms and dysrhythmias: sinus rhythm - Assessment/Plan Assessment/Plan: 1. New onset Afib, now rate controlled. 2. CAD, mild on recent cath. 3. HTN 4. UTI 5. Hx of Lupus 6. Asthma PLAN: - Continue flecainide/ metoprolol/ diltiazem/ Eliquis - May discharge any time from cardiac perspective. - Follow up in the office in 4 weeks.
[2019-06-23 13:07] VITALS: BP 164/82
[2019-06-23] MEDS ORDERED: DULoxetine 60 MG CAP PO SCH (21:00)
--- NOTE | 2019-06-24 02:04 | DIS ---
DATE OF ADMISSION: 06/16/2019 DATE OF DISCHARGE: 06/23/2019 PRIMARY CARE PROVIDER: Eli Gtz MD DISCHARGE DIAGNOSES: 1. New onset atrial fibrillation. 2. Escherichia coli urinary tract infection. 3. Acute bronchitis. 4. Acute on chronic diastolic heart failure, [place] Heart Association class II. 5. Asthma with acute exacerbation. CONDITION OF PATIENT ON THE DAY OF DISCHARGE: Stable. I assessed Ms. Fisher on the day of discharge. She denies any chest pain or shortness of breath. Vital signs are stable. S1 and S2 are heard, regular. Lungs are clear to auscultation bilaterally. CONSULTATIONS DURING THIS HOSPITALIZATION: 1. Cardiology, Dr. Morocho. 2. Pulmonology, Dr. Adams. DISCHARGE MEDICATIONS: New medications: 1. Flecainide 50 mg 2 times a day. 2. Apixaban 5 mg 2 times a day. 3. Coreg 25 mg 2 times a day. 4. Cardizem 60 mg 2 times a day. 5. Prednisone 40 mg daily for one more day. The remainder of her home medications were continued. She has also been started on p.r.n. DuoNeb. The remainder of her home medications were continued and include: 1. Diamox 500 mg 2 times a day. 2. Cholestyramine 4 g daily. 3. Plavix 75 mg every other day. 4. Vitamin B12 of 1000 mcg injection every 2 weeks. 5. Cymbalta 30 mg in the morning and 60 mg at bedtime. 6. Lisinopril 2.5 mg daily. 7. Tincture opium as needed. 8. Protonix 40 mg 2 times a day. 9. Lyrica 150 mg 2 times a day. 10. Topamax 25 mg 2 times a day. HOSPITAL COURSE: Ms. Fisher is a pleasant 73-year-old lady, who was admitted to [facility] on June 16, 2019, for shortness of breath secondary to congestive heart failure and acute bronchitis. She was also found to be in atrial fibrillation with rapid ventricular response. She was seen by Cardiology Service. She was treated with Cardizem. 2D echocardiogram showed left ventricular ejection fraction of 60% to 65% and probable diastolic dysfunction. She also had CT angiogram of the chest, which did not show any evidence of acute process. Her shortness of breath improved with oxygen, steroids, bronchodilators. She was also treated for Escherichia coli urinary tract infection. The organism was resistant to ampicillin, cefepime, ceftazidime, ceftriaxone, sensitive to amikacin, Bactrim, Zosyn, nitrofurantoin, meropenem, levofloxacin, and ciprofloxacin. She continued to have symptomatic atrial fibrillation with rapid ventricular response. On June 22, 2019, she underwent cardioversion. She is being discharged home in a stable condition. POST ACUTE CARE FOLLOWUP: With primary care provider in 3 days, with Pulmonology in 2 to 3 weeks, and with Cardiology in 2 to 3 weeks. ACTIVITY: No restrictions. DIET: Heart healthy and low-sodium. DISCHARGE DESTINATION: Home. TIME SPENT: Total amount of time spent coordinating this discharge: 32 minutes. On the day of discharge, she has sodium 140, potassium 3.9, creatinine 0.79, white count 7300, hemoglobin 12.8, and platelet count 171,000. Please note that the patient had a negative JOHNY screen during this hospitalization. Job ID: [id number]
--- NOTE | 2019-06-24 15:38 | OP ---
DATE OF PROCEDURE: 06/22/19 SURGEON: Dr. Palma PREOPERATIVE DIAGNOSIS: Atrial fibrillation. PROCEDURE: Direct current cardioversion. PROCEDURE IN DETAIL: The patient is a pleasant 73-year-old white female who comes to the hospital for A-fib RVR. She was b rought down for planned ODILON cardioversion. ODILON was performed earlier and showed no evidence of mass or thrombus in the left atrial appendage or any other cardiac structures. After adequate sedation was achieved by the anesthesiology department, one single shock was delivered at 100 joules in a synchronized fashion successfully converting her fr om atrial fibrillation into sinus bradycardia at 58 beats per minute. rhythm. The patient tolerated t he procedure well. RECOMMENDATIONS: 1. Continued full anticoagulation. Switch to Eliquis 5 mg b.i.d. 2. Continue Flecainide at current dose. 3. Discharge home in the morning from the cardiac perspective.
== END 2019-06-23 14:00 | disposition home or self-care (01) | DRG 308 ==
LOC: ERS 11:56 → 2NO 17:20
PROVIDERS: ADMIT Internal Medicine; ATTEND Internal Medicine
PROC: 5A2204Z Restoration of Cardiac Rhythm, Single (ICD-10-PCS; principal; 2019-06-22)
DX: I48.19 Other persistent atrial fibrillation (principal); I50.33 Acute on chronic diastolic (congestive) heart failure; N39.0 Urinary tract infection, site not specified; J45.901 Unspecified asthma with (acute) exacerbation; N13.30 Unspecified hydronephrosis; J44.0 Chronic obstructive pulmonary disease with (acute) lower respiratory infection; I11.0 Hypertensive heart disease with heart failure; B96.20 Unspecified Escherichia coli [E. coli] as the cause of diseases classified elsewhere; J20.9 Acute bronchitis, unspecified; I25.10 Atherosclerotic heart disease of native coronary artery without angina pectoris; M79.7 Fibromyalgia; Z86.73 Personal history of transient ischemic attack (TIA), and cerebral infarction without residual deficits; Z90.49 Acquired absence of other specified parts of digestive tract; Z96.612 Presence of left artificial shoulder joint; Z96.611 Presence of right artificial shoulder joint; E86.0 Dehydration; F32.9 Major depressive disorder, single episode, unspecified; E66.9 Obesity, unspecified; Z68.31 Body mass index [BMI] 31.0-31.9, adult; M32.9 Systemic lupus erythematosus, unspecified; K21.9 Gastro-esophageal reflux disease without esophagitis; G47.33 Obstructive sleep apnea (adult) (pediatric)
CPT/HCPCS: 36415; 36416; 71045; 71250; 80048; 80053; 81001; 81015; 82565; 83880; 84443; 84484; 85014; 85018; 85025; 85049; 85652; 86038; 86225; 87077; 87086; 87186; 92960; 93005; 93306; 93312; 94640; 94760; 96361; 96365; 96372; 96375; J0360; J0696; J1160; J1200; J1650; J1940; J2001; J2405; J2704; J2765; J2920; J2930; J3490; J7512; J7620; Q0163; S0028

== ENCOUNTER 2019-11-01 06:54 | Outpatient (CLI) | payer MEDICARE, OTHER ==
[2019-11-01 18:24] LABS: INR-International Normal Ratio 1.3; PTT 31.3 sec (22.9-36.1); Prothrombin Time 15.7 sec (12.0-14.7)
[2019-11-02 13:26] LABS: SARS-CoV-2 MS2 Positive; SARS-CoV-2 N Gene Negative; SARS-CoV-2 S Gene Negative; SARS-CoV-2 orf1ab Negative
== END 2019-11-01 06:55 | disposition home or self-care (01) ==
LOC: LABBT 06:54
PROVIDERS: ATTEND Internal Medicine Cardiovascular Disease
DX: Z01.812 Encounter for preprocedural laboratory examination (principal); Z11.59 Encounter for screening for other viral diseases; I48.91 Unspecified atrial fibrillation
CPT/HCPCS: 85610; 85730; U0003; 87635

== ENCOUNTER 2019-11-06 09:37 | Observation (INO) | payer MEDICARE ==
[2019-11-01 10:34] VITALS: BMI 33.9
[2019-11-06] MEDS ORDERED: Heparin 10,000 UNITS/1 ML VIAL ONE (10:18)
[2019-11-06] MEDS ORDERED: Isoproterenol 0.2 MG/1 ML AMP ONE ×2 (10:19→13:14)
[2019-11-06] MEDS ORDERED: Heparin 25,000 units/D5W 500 ML ONE (10:26)
[2019-11-06] MEDS ORDERED: Fentanyl 250 MCG/5 ML VIAL ONE (10:44)
[2019-11-06] MEDS ORDERED: PHENYLEPHRINE-NS 100 MCG/ML 10 ML SYRINGE ONE ×2 (11:57→12:47)
[2019-11-06] MEDS ORDERED: Ondansetron PF 4 MG/2 ML Vial ONE (12:47)
[2019-11-06] MEDS ORDERED: Glycopyrrolate 0.2 MG/ML 5 ML SYRINGE ONE (12:47)
[2019-11-06] MEDS ORDERED: Dexamethasone 20 MG/5 ML VIAL ONE (12:47)
[2019-11-06] MEDS ORDERED: Succinylcholine Chloride 20 MG/ML 10 ml SYRINGE FS ONE (12:47)
[2019-11-06] MEDS ORDERED: Lidocaine 1% PF 5 ML VIAL ONE (12:47)
[2019-11-06] MEDS ORDERED: Rocuronium Bromide 10 MG/ML (10ML VIAL) ONE (12:47)
[2019-11-06] MEDS ORDERED: PROPOFOL 200 MG/20 ML VIAL ONE (12:47)
[2019-11-06] MEDS ORDERED: Protamine Sulfate 50 MG/5 ML VIAL ONE (14:17)
[2019-11-06] MEDS ORDERED: Promethazine HCl 25 MG/ML VIAL SLOW IVP PRN (14:55)
[2019-11-06] MEDS ORDERED: HYDROmorphone 2 MG/ML VIAL SLOW IVP PRN (14:55)
[2019-11-06] MEDS ORDERED: Promethazine HCl 25 MG/ML VIAL IM PRN (14:55)
[2019-11-06] MEDS ORDERED: Ondansetron HCl/PF 4 MG/2 ML Vial IVP PRN (14:55)
[2019-11-06] MEDS ORDERED: Acetaminophen/Codeine 30-300mg Tablet PO PRN ×2 (16:15)
[2019-11-06] MEDS ORDERED: Albuterol Sulfate 2.5 mg/3 ml Neb NEB PRN (16:17)
[2019-11-06] MEDS ORDERED: hydrALAZINE 10 MG TAB PO PRN (16:24)
[2019-11-06] MEDS ORDERED: Furosemide 40 MG/4 ML VIAL SLOW IVP PRN (16:27)
[2019-11-06] MEDS ORDERED: [UNRECOGNIZED DRUG - OTHER] IM SCH (16:30)
[2019-11-06] MEDS ORDERED: ONABOTULINUMTOXINA IM SCH (16:30)
[2019-11-06] MEDS ORDERED: Cyanocobalamin 1000 MCG/ML VIAL IM SCH (17:00)
[2019-11-06] MEDS ORDERED: Furosemide 40 MG TAB PO PRN (19:00)
[2019-11-06] MEDS ORDERED: DULoxetine 60 MG CAP PO SCH (21:00)
[2019-11-06] MEDS: Opium Tincture 10% (1ml Charge) PO SCH (21:13)
[2019-11-06] MEDS: Pregabalin 75 MG CAP PO SCH (21:15)
[2019-11-06] MEDS: Apixaban 5 MG TAB PO SCH (21:15)
[2019-11-06] MEDS: Sucralfate 1 GM TAB PO SCH ×2 (21:16→21:17)
[2019-11-06] MEDS: Topiramate 25 MG TAB PO SCH (21:17)
[2019-11-06] MEDS: Cholestyramine/Aspartame 4 gm Packet PO SCH (21:18)
[2019-11-07] MEDS ORDERED: diphenhydrAMINE 25 MG CAP PO PRN (05:37)
[2019-11-07 07:39] VITALS: TEMP 97.6
[2019-11-07] MEDS: Opium Tincture 10% (1ml Charge) PO SCH (07:59)
[2019-11-07] MEDS ORDERED: DULoxetine 30 MG CAP PO SCH (09:00)
[2019-11-07] MEDS ORDERED: Prevnar 13-Val Conj/PF 0.5 ML SYRINGE IM ONE (09:00)
[2019-11-07] MEDS ORDERED: Carvedilol 25 MG TAB PO SCH (09:00)
--- NOTE | 2019-11-07 09:01 | OP ---
DATE OF PROCEDURE: 11/06/2019 PROCEDURE PERFORMED: Electrophysiology study and radiofrequency ablation. REASON FOR PROCEDURE: Ms. Fisher is a pleasant 74-year-old woman with prior history of persistent atrial fibrillation despite flecainide and cardioversions. She is fairly disabled with palpitation and dyspnea, NYHA class III functional status. She is here for a pulmonary venous isolation procedure. DESCRIPTION OF PROCEDURE: The patient received general anesthesia by Anesthesia specialist. After adequate level of sedation achieved, the left and right femoral vein were prepped, draped, and anesthetized under ultrasound guidance. The both femoral veins were cannulated x2 on the left side. A 9-[place] sheath was used to advance the intracardiac echocardiogram probe, which was used to monitor the transseptal procedure, the pericardial space, and the catheter manipulation throughout the case. Also, on the left side, a Preface sheath was used to advance a Duo-Deca catheter into the right atrium and CS position. On the right side, initially, two 8-[place] short sheath was introduced through which a ThermoCool SFST catheter was advanced to the right atrium and a 3D map of the right atrium was obtained between the His bundle and CS positions. Following that, the right femoral venous short sheath was exchanged to SL1 sheaths, which was used to perform transseptal puncture with the help of a powered [place] needle after IV heparin administration. The heparin was also given in a brief fashion and was adjusted throughout the case to keep ACT over 350. Following that through the SL1 sheath, a Lasso and an ablation catheter was advanced to the left atrium. 3D map of the left atrium was obtained. Pulmonary venous isolation performed. Also, superior and inferior lines were placed to isolate the posterior wall. Through the posterior wall valdez, close attention was paid to the esophagus with monitoring esophageal temperatures. Any excessive heating was met with high fluid irrigation from the ablation catheter. Following that, the patient remained in the atrial fibrillation, which later organized to a right atrial flutter. This though later converted back to atrial fibrillation. Further ablation lesion was placed in the inferior wall over the CS roof isolating the inferior wall as well. The atrial fibrillation organized into left atrial flutter. Further mapping of left atrial flutter was performed and eventually was terminated in the anterior-superior position by the mitral valve annulus. Following that, the catheter was withdrawn from the left side, heparin was stopped and reversed with protamine. The basic EP study was also obtained with LV pacing from the ablation catheter earlier yielded retrograde Wenckebach cycle length was 320 milliseconds, antegrade Wenckebach cycle length was 340 milliseconds. The AV jerry ERP was 600/220 milliseconds. Dual AV node physiology was seen. No accessory pathway was noted. Concentric retrograde VA conduction was seen. Baseline HV is 45 milliseconds, unchanged. The QRS is narrow at 78 milliseconds, QT is 389 milliseconds. A total of 35.09 minutes of ablation was delivered at 40 reyna. At the end of the case, cardiac silhouette did not change, and also intracardiac echocardiogram probe showed no significant change in the baseline, small pericardial effusion and fat pad. Catheters were removed and the long sheaths were exchanged for short sheaths at this point and Vascade closure was performed in all 4 femoral venous access. CONCLUSION: 1. Successful isolation of all 4 pulmonary veins as well as a posterior wall and also the inferior wall is partially isolated. 2. Additional ablation lesions were placed in the inferior interatrial septum as well as in the anterior wall and anterior-superior lateral area terminating an atrial flutter as well. 3. No evidence of accessory pathway by LV pacing. 4. Dual AV jerry physiology without inducible AV jerry reentrant tachycardia. PLAN: Resume oral anticoagulation. Monitor for recurrent arrhythmias. Job ID: [id number]
[2019-11-07] MEDS: Apixaban 5 MG TAB PO SCH (10:38)
[2019-11-07] MEDS: Pregabalin 75 MG CAP PO SCH (10:39)
[2019-11-07] MEDS: Topiramate 25 MG TAB PO SCH (10:40)
[2019-11-07] MEDS: Sucralfate 1 GM TAB PO SCH (10:40)
[2019-11-07] MEDS: Cholestyramine/Aspartame 4 gm Packet PO SCH (10:53)
[2019-11-07 12:08] VITALS: BP 152/72
--- NOTE | 2019-11-08 08:04 | DIS ---
DATE OF ADMISSION: 11/06/2019 DATE OF DISCHARGE: 11/07/2019 DIAGNOSIS: Atrial fibrillation. PROCEDURES PERFORMED: Electrophysiology study and radiofrequency ablation for persistent atrial fibrillation, total ablation time 35 minutes. CONCLUSION: 1. Successful isolation of all 4 pulmonary veins as well as posterior wall and inferior wall partially isolated. 2. Additional lesions placed in inferior interatrial septum as well as anterior wall and anterior superolateral area terminating an atrial flutter. 3. No evidence of accessory pathway by LV pacing. 4. Dual AV jerry physiology was present without inducibility for AV jerry reentrant tachycardia. COMPLICATIONS: None. SUBJECTIVE: Ms. Fisher is a 74-year-old woman with a history of persistent atrial fibrillation refractory to flecainide and cardioversions. She had significant symptoms with palpitations and dyspnea with her arrhythmia, NYHA functional class III status. She elected for ablation to manage her atrial arrhythmias, which is performed as detailed above. She has done well postoperatively maintaining sinus rhythm. She is not voicing any cardiac concerns or complaints today other than a sore throat. She did have a rash on her on chest and neck, last night was given p.r.n. Benadryl, which has helped to treat the rash. REVIEW OF SYSTEMS: 8-point review of systems is negative. OBJECTIVE: VITAL SIGNS: Temperature 97.6, pulse 87, blood pressure 142/94, respirations 18, and oxygen 97% on room air. GENERAL: The patient is alert and oriented. Speech is clear. Affect is appropriate. No apparent distress. HEART: with crisp S1 and S2. LUNGS: Clear to auscultation bilaterally. Hepatojugular reflux is negative. ABDOMEN: Obese, soft, and nontender without palpable masses. Bilateral groin sites are stable without hematoma or bleeding complications evident. EXTREMITIES: Bilateral lower extremities are warm and dry to touch without clubbing, cyanosis or edema. NEUROLOGIC: Grossly intact and nonfocal. Gait is stable. DISCHARGE RECOMMENDATIONS: Light activity and no driving for 1 week or until groin sites are healed, then may resume activity gradually and as tolerated after that time. Continue oral anticoagulation without any interruption or missed doses. Contact TCA with any postablation concerns. Follow up in 6 weeks is requested or sooner if symptoms dictate. DISCHARGE MEDICATION: Resuming home medications of, 1. Topamax b.i.d. 2. Lyrica 150 mg b.i.d. 3. Protonix 40 mg b.i.d. 4. Opium tincture b.i.d. 5. Cymbalta 60 mg at bedtime and 30 mg daily. 6. Vitamin B12 IM injection every 2 weeks. 7. Cholestyramine powder b.i.d. 8. Coreg 25 mg b.i.d. 9. Eliquis 5 mg b.i.d. 10. Albuterol as needed. 11. Hydralazine 10 mg q.i.d. as needed. New prescriptions for, 1. Carafate 1 g p.o. q.i.d. x2 weeks. 2. Lasix 40 mg p.o. p.r.n. shortness of breath, edema and fluid retention to be taken with potassium chloride 20 mEq. CONDITION AT DISCHARGE: Stable. Job ID: [id number]
== END 2019-11-07 12:10 | disposition home or self-care (01) ==
LOC: CCL 09:37 → 2NO 10:49
PROVIDERS: ADMIT Internal Medicine Cardiovascular Disease; ATTEND Internal Medicine Cardiovascular Disease
PROC: 02583ZZ Destruction of Conduction Mechanism, Percutaneous Approach (ICD-10-PCS; principal; 2019-11-06)
PROC: 02K83ZZ Map Conduction Mechanism, Percutaneous Approach (ICD-10-PCS; 2019-11-06)
PROC: 4A023FZ Measurement of Cardiac Rhythm, Percutaneous Approach (ICD-10-PCS; 2019-11-06)
PROC: 4A0234Z Measurement of Cardiac Electrical Activity, Percutaneous Approach (ICD-10-PCS; 2019-11-06)
DX: I48.19 Other persistent atrial fibrillation (principal); I11.0 Hypertensive heart disease with heart failure; I50.32 Chronic diastolic (congestive) heart failure; M32.9 Systemic lupus erythematosus, unspecified; I25.10 Atherosclerotic heart disease of native coronary artery without angina pectoris; J45.909 Unspecified asthma, uncomplicated; M79.7 Fibromyalgia; M81.0 Age-related osteoporosis without current pathological fracture; E66.9 Obesity, unspecified; Z68.33 Body mass index [BMI] 33.0-33.9, adult; Z86.73 Personal history of transient ischemic attack (TIA), and cerebral infarction without residual deficits; Z79.01 Long term (current) use of anticoagulants; Z79.02 Long term (current) use of antithrombotics/antiplatelets; Z79.899 Other long term (current) drug therapy; Z88.1 Allergy status to other antibiotic agents; Z88.6 Allergy status to analgesic agent; Z88.8 Allergy status to other drugs, medicaments and biological substances
CPT/HCPCS: 76942; 85347 ×2; 92960; 93005 ×2; 93613; 93622; 93623; 93655; 93656; 93657; 93662; C1732 ×3; C1759; C1884; 93010; 96372; G0378; J1100; J1644; J2405; J2704; J2720; J3010; J3420; Q0163

== ENCOUNTER 2019-11-14 09:12 | Outpatient (CLI) | payer MEDICARE ==
--- NOTE | 2019-11-14 11:24 | CT ---
CT ABDOMEN AND PELVIS WITH CONTRAST: HISTORY: Abdominal pain. 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 COMPARISON: Abdomen and pelvic CT from 2019. FINDINGS: Lung bases are clear. No pericardial effusion. The spleen is unremarkable as well as the pancreas. Multiple cysts of the liver, similar to the comparison exam. Prior ventral hernia repair with mesh material. Suture is noted around the sigmoid colon. Small focus of gas through the nondependent urinary bladder. No intravesicular contrast is appreciat ed. Surgical clips along the right iliac neurovascular bundle. The subcutaneous fluid collection of the prevesicular space has resolved from the comparison exam. No free intraperitoneal gas or fluid. There is tethering of large and small bowel on the anterior ab dominal wall. No hydronephrosis. Parapelvic cyst of the left kidney. No abnormal renal enhancing mass. No hydrou reter. Similar appearance of the right adrenal mass. Aortic contour is nonaneurysmal. Chronic-appearing christian perior end plate wedge deformity of L1. High-grade I/II L4 over L5 anterolisthesis with intact poste rior spinal fusion hardware. IMPRESSION: 1. Single punctate focus of gas of the nondependent portion of the urinary bladder. Recommend corre lation with recent instrumentation. Underlying fistula is felt less likely. A CT urogram can be per formed if clinically warranted as the urinary bladder is mildly decompressed. 2. Resolution of the prevesicular space fluid collection and anterior abdominal wall fistula with sc ar in situ. 3. There is tethering of large and small bowel along the anterior abdominal wall with prior ventral hernia repair. 4. No definite sinus track connecting to the abdominal wall mesh. This does appear to have resolved from the comparison exam. Only scar and granulation tissue in situ extends along this prior collect ion. POS: HOME
[2019-11-14] MEDS ORDERED: Iopamidol 370 76% 100 ML VIAL ONE (15:39)
== END 2019-11-14 09:13 | disposition home or self-care (01) ==
LOC: CT 09:12
PROVIDERS: ATTEND Urology
DX: L98.8 Other specified disorders of the skin and subcutaneous tissue (principal); L92.8 Other granulomatous disorders of the skin and subcutaneous tissue; L90.5 Scar conditions and fibrosis of skin
CPT/HCPCS: 74177; Q9967

== ENCOUNTER 2020-04-01 18:31 | Inpatient (IN) | payer MEDICARE ==
[~2020-04-01 18:31] MED LIST changes: -Gadobenate Dimeglumine 529 MG/1 ML (20ML VIAL) ONE; +Heparin 1,000 UNITS/ML VIAL ONE; +Iopamidol-370 76% 500 ML 1 ML ONE
[2020-04-01 20:00] LABS: #Eosinphils 0.1 thou/uL (0.0-0.7); #Monocytes 0.4 thou/uL (0.11-0.59); #Neutrophils 5.6 thou/uL (1.40-6.50); %Basophils 0.5 % (0.0-1.0); %Eosinophils 1.3 % (0.0-10.0); %Lymphocytes 14.3 % (21.0-51.0); %Monocytes 5.5 % (0.0-10.0); %Neutrophils 78.3 % (42.0-75.0); Hemoglobin 13.2 g/dL (12.0-16.0); Mean Corpuscular HGB CONC 30.5 g/dL (32.0-36.0); Mean Corpuscular Hemoglobin 27.7 pg (27.0-31.0); Mean Corpuscular Volume 90.8 fL (78.0-98.0); Platelet Count 202 thou/uL (130-400); RBC Distribution Width 16.4 % (11.5-14.5); Red Blood Cell (RBC) Count 4.78 mill/uL (4.20-5.40); White Blood Cell (WBC) Count 7.1 thou/uL (4.8-10.8)
[2020-04-01 20:37] LABS: ALT (SGPT) 14 U/L (8-55); AST (SGOT) 16 U/L (5-34); Albumin 3.9 g/dL (3.4-4.8); Alkaline Phosphatase 92 U/L (40-110); Anion Gap 20 mmol/L (10-20); BUN (Urea Nitrogen) 21 mg/dL (9.8-20.1); Bilirubin, Total 0.5 mg/dL (0.2-1.2); Calc. Creatinine Clearance 0 mL/min (70-130); Calcium 9.5 mg/dL (7.8-10.44); Carbon Dioxide 17 mmol/L (23-31); Chloride 108 mmol/L (98-107); Globulin 3.8 g/dL (2.4-3.5); Glucose 91 mg/dL (83-110); Potassium 3.6 mmol/L (3.5-5.1); Protein, Total 7.7 g/dL (6.0-8.3); Sodium 141 mmol/L (136-145)
[2020-04-01 21:22] LABS: Bacteria/HPF 4+ HPF (None Seen); Bilirubin 1+ (Negative); Blood, Urine Negative (Negative); Clarity Turbid (Clear); Glucose, Urine (Dipstick) Normal (Negative); Ketone, Urine Negative (Negative); Leukocyte 250 Leu/uL (Negative); Nitrite 2+ (Negative); Protein, Urine (Dipstick) 10 mg/dL (Neg-Trace); RBC/HPF 0-3 HPF (0-3); Specific Gravity, Urine 1.016 (1.002-1.036); Squamous Epithelial 0-3 HPF (0-3); Urobilinogen 3 mg/dL (Less than 2); WBC/HPF Greater than 50 HPF (0-3)
[2020-04-01] MEDS ORDERED: MEROPENEM 1 GM/50 ML 1 GM in Premix Bag 1 BAG IVPB SCH (21:30)
[2020-04-01] MEDS ORDERED: cefOXitin Sodium/Dextrose,Iso 2 GM in Premix Bag 1 BAG IVPB SCH (22:45)
--- NOTE | 2020-04-01 23:03 | CT ---
EXAM: CT ABDOMEN AND PELVIS HISTORY: Urinary tract infection. Burning urination and pain. COMPARISON: 11/14/2019 Procedure: Multiple contiguous axial images were obtained and a CT of the abdomen and pelvis with IV contrast. C oronal reformats were performed. FINDINGS: Lower Chest: Redemonstration of a partially calcified nodule in the right lower lobe measuring 0.5 cm , previously measuring 0.5 cm. Vessels: Slightly ectasia of the aorta. No periaortic fat stranding Heart: Upper normal heart size. No significant pericardial fluid Abdomen: Portal vein:Patent Gallbladder: Contracted Liver: Stable hypodensities in the liver, likely representing hepatic cyst. Pancreas: within normal limits. Spleen: within normal limits. Adrenals: Redemonstration of a mixed attenuation mass involving the right adrenal gland, unchanged. U nremarkable left adrenal gland. Kidneys: Symmetric enhancement. No obstructive uropathy. No evidence of a striated nephrogram phase. Hypodensity in the right renal cortex is unchanged and is statistically favored to be a cyst. Peritoneum: No ascites or free air, no fluid collection. Bowel: Limited evaluation by the lack of oral contrast. There is no evidence of a small bowel obstruc tion. Normal ileocecal junction. Appendix is surgically absent. No obvious inflammation of the cecal apex. There is evidence of previous anastomosis of the region of the sigmoid colon. Mesentery and Retroperitoneum: No enlarged mesenteric or retroperitoneal lymph nodes. Abdominal Wall: Redemonstration of extensive hernia repair surgery. Stable tenting of the alimentary canal along the anterior abdominal wall. No evidence of bowel herniation. Small component of herniated mesentery is noted in the right lower quadrant. Pelvis: Reproductive Organs: Surgically absent uterus Pelvis: No mass, lymphadenopathy, free air or free fluid. Bladder: Small focus of air in the nondependent portion of the bladder. Correlate for recent [place] ca theterization. No evidence of bladder mucosa hypertrophy or irregularity. Bones: Extensive postoperative changes of the lumbar spine, incompletely evaluated. IMPRESSION: 1. No evidence of obstructive uropathy. No CT evidence of pyelonephritis. 2. Nonspecific focus of air in the nondependent portion of the bladder. Correlate for recent [place] ca theterization 3. Stable postoperative changes involving the abdomen and pelvis as described above. 4. Small herniation of mesenteric fat in the right lower quadrant. No evidence of bowel herniation.
[2020-04-01 23:39] LABS: CK (CPK) 51 U/L (29-168); Lipase 19 U/L (8-78)
[2020-04-02] MEDS ORDERED: Acetaminophen 650 MG Suppository PR PRN (00:46)
--- NOTE | 2020-04-02 01:31 | PDOC.HHP ---
Hospitalist HPI - History of Present Illness History of Present Illness: ADMISSION DATE: 04/02/2020 TIME OF ASSESSMENT: 0030 PRIMARY CARE PHYSICIAN: Eli Gtz CHIEF COMPLAINT: Suprapubic discomfort HPI: This is a 74-year-old woman with a history of frequent urinary tract infections known to be resistant to multiple antibiotics who developed urinary symptoms over 1 week ago. She was seen by her primary care physician who gave her a course of Bactrim. She completed the antibiotics several days ago and her symptoms have not improved. They have actually worsened with increasing suprapubic discomfort. She saw Dr. Burnett had a urinalysis done via straight cath late last week. Cultures grew Klebsiella greater than 100,000 resistant to all drugs except amikacin, cefoxitin, and meropenem. She was recommended IV antibiotics and advised to come into the emergency department due to delays with getting a PICC line placed. ROS: Denies having any fevers, chills or sweats. She does have a low appetite and has lost some weight the last couple of weeks. No chest pain, palpitations or sob. Chronic diarrhea which is unchanged. No blood in her stools. No dysuria or hematuria. All other review of systems are negative. ED COURSE: Labs done showed a white cell count 7.1, hemoglobin 13.2, hematocrit 43.5, platelets 202, neutrophils 78.3%. Sodium 141, potassium 3.6, BUN 21, creatinine 1.13, GFR 53. LFTs normal. She had a CT of the abdomen and pelvis done which demonstrated no evidence of obstructive uropathy or pyelonephritis. Nonspecific focus of air in the nondependent portion of the bladder. Stable postoperative changes involving the abdomen and pelvis. Small herniation of mesenteric fat in the right lower quadrant with no evidence of bowel herniation. She was started on IV antibiotics with meropenem and cefoxitin. She received 1 L of normal saline. PAST MEDICAL HISTORY: 1. Lupus 2. Fibromyalgia 3. TIAs 4. Vasculitis 5. Mitral valve prolapse 6. Atrial fibrillation 7. Hydrocephalus 8. Hypertension 9. Chronic CHF 10. Multiple urinary tract infections 11. Depression 12. Obesity PAST SURGICAL HISTORY: 1. Lumbar surgery 2. Cholecystectomy 3. Colon resection x2 4. Appendectomy 5. Hysterectomy 6. Bilateral shoulder replacement 7. Bladder mesh placed 1982, removed 2018 SOCIAL HISTORY: Lives at home with her . Patient denies alcohol use, Patient denies drug use, Patient has no smoking history. Uses a cane to walk. FAMILY HISTORY: Noncontributory. ALLERGIES: Diovan, lincomycin, mirabegron, NSAIDS (Non-Steroidal Anti-Inflamma, valsartan, vancomycin CURRENT MEDICATIONS: To be verified. - Exam General Appearance: NAD, awake alert General - other findings: VS: BP: 181/104, HR: 75, RR: 18, Temp: 98.4 (Oral), Pain: 4, O2 97% on RA Eye: PERRL, anicteric sclera ENT: normocephalic atraumatic, no oropharyngeal lesions Neck: supple, no lymphadenopathy Heart: RRR, no murmur, no gallops, no rubs, normal peripheral pulses Respiratory: CTAB, no wheezes, no rales, no ronchi, normal chest expansion Gastrointestinal: soft, non-tender, non-distended, normal bowel sounds, no guarding, no rigidity Extremities: no edema Skin: normal turgor, no lesions, no rashes Neurological: cranial nerve grossly intact, normal sensation to touch, no weakness, no focal deficits, no new deficit Musculoskeletal: normal tone, normal strength, no muscle wasting Psychiatric: normal affect, normal behavior, A&O x 3, oriented to person Hospitalist Results - Labs Result Diagrams: 04/01/20 19:38 04/01/20 19:38 Lab results: WBC 7.1 thou/uL (4.8-10.8) 04/01/20 19:38 Hgb 13.2 g/dL (12.0-16.0) 04/01/20 19:38 Hct 43.5 % (36.0-47.0) 04/01/20 19:38 MCV 90.8 fL (78.0-98.0) 04/01/20 19:38 Plt Count 202 thou/uL (130-400) 04/01/20 19:38 Neutrophils % 78.3 % (42.0-75.0) H 04/01/20 19:38 Sodium 141 mmol/L (136-145) 04/01/20 19:38 Potassium 3.6 mmol/L (3.5-5.1) 04/01/20 19:38 Chloride 108 mmol/L (98-107) H 04/01/20 19:38 Carbon Dioxide 17 mmol/L (23-31) L 04/01/20 19:38 BUN 21 mg/dL (9.8-20.1) H 04/01/20 19:38 Creatinine 1.03 mg/dL (0.6-1.1) 04/01/20 19:38 Glucose 91 mg/dL (83-110) 04/01/20 19:38 Calcium 9.5 mg/dL (7.8-10.44) 04/01/20 19:38 Total Bilirubin 0.5 mg/dL (0.2-1.2) 04/01/20 19:38 AST 16 U/L (5-34) 04/01/20 19:38 ALT 14 U/L (8-55) 04/01/20 19:38 Alkaline Phosphatase 92 U/L (40-110) 04/01/20 19:38 Creatine Kinase 51 U/L (29-168) 04/01/20 23:04 Serum Total Protein 7.7 g/dL (6.0-8.3) 04/01/20 19:38 Albumin 3.9 g/dL (3.4-4.8) 04/01/20 19:38 Lipase 19 U/L (8-78) 04/01/20 23:04 Urine Ketones Negative mg/dL (Negative) 04/01/20 18:48 Urine Blood Negative (Negative) 04/01/20 18:48 Urine Nitrite 2+ (Negative) A 04/01/20 18:48 Ur Leukocyte Esterase 250 Elsie/uL (Negative) A 04/01/20 18:48 Urine RBC 0-3 HPF (0-3) 04/01/20 18:48 Urine WBC Greater than 50 HPF (0-3) A 04/01/20 18:48 Ur Squamous Epith Cells 0-3 HPF (0-3) 04/01/20 18:48 Urine Bacteria 4+ HPF (None Seen) A 04/01/20 18:48 - Radiology Interpretation CT scan - abdomen Status: report reviewed by me Hospitalist H&P A/P - Problem (1) UTI (urinary tract infection) Status: Acute Qualifiers: Urinary tract infection type: acute cystitis Hematuria presence: without hematuria Qualified Code(s): N30.00 - Acute cystitis without hematuria Assessment and Plan: s/p UA/UCx + Klebsiella (multi-drug resistant) Continue meropenem Consult ID Bladder scan to assess for urine retention Azo to help with discomfort (2) Hypertension Code(s): I10 - ESSENTIAL (PRIMARY) HYPERTENSION Status: Chronic Qualifiers: Hypertension type: essential hypertension Qualified Code(s): I10 - Essential (primary) hypertension Assessment and Plan: Monitor BP. Resume home meds once verified. (3) CAD (coronary artery disease) Code(s): I25.10 - ATHSCL HEART DISEASE OF [place] CORONARY ARTERY W/O ANG PCTRS Status: Chronic Qualifiers: Coronary Disease-Associated Artery/Lesion type: [place] artery [place] vs. transplanted heart: [place] heart (4) CHF (congestive heart failure) Code(s): I50.9 - HEART FAILURE, UNSPECIFIED Status: Chronic Assessment and Plan: Received 1L NS in the ED Check BNP with AM labs. (5) Chronic diarrhea Code(s): K52.9 - NONINFECTIVE GASTROENTERITIS AND COLITIS, UNSPECIFIED Status: Chronic (6) Dyslipidemia Code(s): E78.5 - HYPERLIPIDEMIA, UNSPECIFIED Status: Chronic (7) Lupus Code(s): M32.9 - SYSTEMIC LUPUS ERYTHEMATOSUS, UNSPECIFIED Status: Chronic (8) Obesity (BMI 30.0-34.9) Code(s): E66.9 - OBESITY, UNSPECIFIED Status: Chronic (9) Anxiety and depression Code(s): F41.9 - ANXIETY DISORDER, UNSPECIFIED; F32.9 - MAJOR DEPRESSIVE DISORDER, SINGLE EPISODE, UNSPECIFIED Status: Chronic - Plan Plan: GI prophylaxis with Famotidine DVT Prophylaxis with mechanical SCDs. CODE STATUS: FULL Case discussed with Dr. Cruz who agrees with plan as above.
[2020-04-02] MEDS: hydrALAZINE 10 MG TAB PO PRN ×2 (03:50→18:04)
[2020-04-02 06:19] LABS: #Eosinphils 0.1 thou/uL (0.0-0.7); #Lymphocytes 1.4 thou/uL (1.20-3.40); #Monocytes 0.6 thou/uL (0.11-0.59); %Basophils 0.2 % (0.0-1.0); %Lymphocytes 19.6 % (21.0-51.0); %Monocytes 8.4 % (0.0-10.0); %Neutrophils 69.7 % (42.0-75.0); Hemoglobin 11.3 g/dL (12.0-16.0); Mean Corpuscular HGB CONC 31.7 g/dL (32.0-36.0); Mean Corpuscular Hemoglobin 28.7 pg (27.0-31.0); Mean Corpuscular Volume 90.7 fL (78.0-98.0); Mean Platelet Volume 7.8 fL (7.4-10.4); Platelet Count 202 thou/uL (130-400); RBC Distribution Width 16.3 % (11.5-14.5); Red Blood Cell (RBC) Count 3.94 mill/uL (4.20-5.40); White Blood Cell (WBC) Count 7.1 thou/uL (4.8-10.8)
[2020-04-02] MEDS: MEROPENEM 1 GM/50 ML 1 GM in Premix Bag 1 BAG IVPB SCH ×3 (06:43→22:04)
[2020-04-02 06:55] LABS: Anion Gap 14 mmol/L (10-20); BUN (Urea Nitrogen) 21 mg/dL (9.8-20.1); Calc. Creatinine Clearance 0 mL/min (70-130); Carbon Dioxide 22 mmol/L (23-31); Chloride 108 mmol/L (98-107); Glucose 110 mg/dL (83-110); Potassium 3.6 mmol/L (3.5-5.1); Sodium 140 mmol/L (136-145)
[2020-04-02] MEDS ORDERED: Opium Tincture 10% (1ml Charge) PO SCH ×2 (07:30→09:00)
[2020-04-02] MEDS ORDERED: Famotidine/PF 20 mg/2ml Vial ONE (08:09)
[2020-04-02] MEDS ORDERED: Furosemide 40 MG TAB PO PRN (08:52)
[2020-04-02] MEDS ORDERED: Albuterol Sulfate 2.5 mg/3 ml Neb FS PRN (08:52)
[2020-04-02] MEDS: Apixaban 5 MG TAB PO SCH ×2 (09:00→22:03)
[2020-04-02] MEDS ORDERED: Cyanocobalamin 1000 MCG/ML VIAL IM SCH (09:00)
[2020-04-02] MEDS: Carvedilol 25 MG TAB PO SCH ×2 (09:00→22:04)
[2020-04-02] MEDS: Phenazopyridine HCl 100 MG TAB PO SCH ×3 (09:03→17:14)
[2020-04-02] MEDS ORDERED: Albuterol Sulfate 2.5 mg/3 ml Neb NEB PRN (09:08)
[2020-04-02] MEDS: DULoxetine 30 MG CAP PO SCH (09:56)
[2020-04-02] MEDS: Topiramate 25 MG TAB PO SCH ×2 (09:57→22:04)
[2020-04-02] MEDS: Sucralfate 1 GM TAB PO SCH ×4 (09:57→22:11)
[2020-04-02] MEDS: Cholestyramine/Aspartame 4 gm Packet PO SCH ×2 (09:58→23:22)
[2020-04-02] MEDS: Lisinopril 2.5 MG TAB PO SCH (10:00)
[2020-04-02] MEDS: Famotidine 20 MG TAB PO SCH ×2 (10:04→22:02)
[2020-04-02 12:28] LABS: SARS-CoV-2 MS2 Positive; SARS-CoV-2 N Gene Negative; SARS-CoV-2 S Gene Negative; SARS-CoV-2 by NAA Not Detected (NotDetected); SARS-CoV-2 orf1ab Negative
[2020-04-02] MEDS: Acetaminophen 325 MG TAB PO PRN (15:20)
[2020-04-02] MEDS: Opium Tincture 10% (1ml Charge) PO SCH (18:04)
[2020-04-02] MEDS: Pregabalin 75 MG CAP PO SCH (22:03)
[2020-04-02] MEDS: DULoxetine 60 MG CAP PO SCH (22:04)
[2020-04-03] MEDS: MEROPENEM 1 GM/50 ML 1 GM in Premix Bag 1 BAG IVPB SCH ×3 (05:48→22:01)
[2020-04-03] MEDS: Pregabalin 75 MG CAP PO SCH ×2 (08:30→21:51)
[2020-04-03] MEDS: Acetaminophen 325 MG TAB PO PRN (08:30)
[2020-04-03] MEDS: Sucralfate 1 GM TAB PO SCH ×4 (08:31→21:51)
[2020-04-03] MEDS: Famotidine 20 MG TAB PO SCH ×2 (08:31→21:50)
[2020-04-03] MEDS: DULoxetine 30 MG CAP PO SCH (08:31)
[2020-04-03] MEDS ORDERED: FLU VACC QS2020-21(65YR UP)/PF 240 MCG/0.7 ML SYRINGE IM ONE (09:00)
[2020-04-03] MEDS: Opium Tincture 10% (1ml Charge) PO SCH ×2 (09:43→18:15)
[2020-04-03] MEDS: Lisinopril 2.5 MG TAB PO SCH (11:39)
[2020-04-03] MEDS: Apixaban 5 MG TAB PO SCH ×2 (11:39→21:50)
--- NOTE | 2020-04-03 11:39 | SPC ---
SPC CVP LINE PICC INITIAL >5: 04/03/2020 11:35 AM INDICATION: Long-term central venous access PROCEDURE: Peripherally placed 50 cm single lumen power PICC line. PICC Line Placement: The right arm was prepped and draped in sterile fashion. One percent lidocaine was used for local anesthetic. Under fluoroscopic and ultrasound guidance, the basilic vein was patent and accessed with a micropunc ture needle. A guide wire was then advanced into the basilic vein. A vascular sheath was then advanced over a guide wire, and a single lumen PICC line was trimmed. The PICC line was then advanc ed into the central venous system. A final placement film demonstrates the tip of the catheter terminated in the caval-atrial junction. After confirmation of the catheter position, the catheter was sutured in place at the skin entry site . There was no immediate complication. Total fluoroscopic time 0.5 minutes. Total exposure 3609 mgray/sq cm IMPRESSION: Peripheral placement of a single lumen power PICC line into the right basilic vein using fluoroscopic and ultrasound guidance.
[2020-04-03] MEDS: Carvedilol 25 MG TAB PO SCH ×2 (11:40→21:51)
[2020-04-03] MEDS: Phenazopyridine HCl 100 MG TAB PO SCH ×3 (11:40→18:15)
[2020-04-03] MEDS: Topiramate 25 MG TAB PO SCH ×2 (11:41→21:51)
[2020-04-03] MEDS: Cholestyramine/Aspartame 4 gm Packet PO SCH (12:35)
[2020-04-03] MEDS ORDERED: Sodium Chloride 0.9% 10 ML ONE ×2 (18:05→21:59)
[2020-04-03] MEDS ORDERED: Cholestyramine/Aspartame 4 gm Packet PO SCH (19:45)
--- NOTE | 2020-04-03 20:33 | CON ---
DATE OF CONSULTATION: 04/03/2020 REASON FOR CONSULTATION: Evaluate urinary tract infection with resistant pathogen. HISTORY OF PRESENT ILLNESS: A 74-year-old who has a history of hypertension, systemic lupus erythematosus, chronic diarrhea with negative extensive workup with possibilities of bile acid diarrhea from combination of right hemicolectomy, cholecystectomy, and the possibility of small bowel bacterial overgrowth. Currently being managed conservatively or just symptomatically with opium as well as multiple abdominal surgeries in addition to the colon resection for unclear reason. She has had hernias which required hernia surgery with mesh, extensive mesh placement and she has had total hysterectomy and a bladder suspension surgery for management of incontinence, which did not help. She has had a port placed in the left subclavian location, which is still there, but is not functional and had been used for management of systemic lupus erythematosus in the past. Apparently, the mesh attached to her bladder had to be removed by a surgeon in [place]. There is another issue with her bladder, which is the finding of a piece of stitch sticking out from the inside of the bladder, which was found by Dr. Burnett associated with an itis that led to a stone formation. This had to be lysed by laser application by Dr. Burnett. The patient had been on Avastin once a month for macular degeneration, hydralazine, lisinopril, Protonix, opium tincture, Cymbalta, Lyrica. The patient has had various episodes of dysuria treated after positive urine cultures were identified. One of the problems in the interpretation of patient's symptoms is that she has remarkable memory loss and is unable to give a proper account of her past medical history, so is pretty much impossible to police judge the nature of the symptoms that she presents. She is unable to establish a proper temporal relationship between the events, for example, she thought that after the surgery that was done in [place] 14 months ago, that she had not had any urinary problems, but if one looks at a cursory look, list of urine cultures reveal a pretty much every month one positive urine culture, meaning that she had gone to the doctor's office or complained about urinary symptoms and obviously she must have had treatment for those; those start in 2016 with Enterococcus, Klebsiella, which was very broadly susceptible organism then and then she had E. coli again broadly susceptible in 2016. In , she had aerococcus, Klebsiella, Citrobacter with broad susceptibility profile. In 2019, she had Klebsiella pneumoniae with little bit more resistance to quinolones specifically and E. coli pops up as well with some resistance. Then in 2019, one start seeing a third generation cephalosporin resistance in the E. coli and now we have this highly resistant Klebsiella obtained on March 26, March 29, and April 01, so this prompted the admission for antimicrobial therapy administration. The patient does not have any headaches. No change in visual symptoms, sore throat, odynophagia, or dysphagia. No cough or sputum production. No dyspnea or chest pain. She has tenderness in the right side of the abdomen close to the flank area on palpation, but not spontaneous pain and she complains of dysuria in her own account when she is standing up trying to void. She has a lot of dysuria reportedly. Again, her ability to recall these events is limited and her initial blood count that she gave to us was that she had not had one of those episodes in 14 months, which is not true just by cursory review of her multiple urine cultures that had been done over the past 2 years. She has still constant intermittent diarrhea which is managed with opium due to the failure of all the other interventions and lack of a clear-cut explanation for chronic diarrhea which is felt to be related to possible lack of enough colonic mucosa to absorb the extra fluid related to the prior intestinal resections. No back pain. No joint symptoms. PAST MEDICAL HISTORY: Includes hypertension; systemic lupus erythematosus, treated in the past; normal-pressure hydrocephalus; mitral valve prolapse; bladder suspension surgery with chronic bladder infections and no evidence of urinary retention. Some form of pathology in the right colon, which led to hemicolectomy, unclear the reason for that. She had a colostomy for about a year which was taken down, history of appendectomy, total hysterectomy. She had a shoulder replacement and a laminectomy. She has had the recent surgery where the mesh that had been placed for herniorrhaphy repair had to be removed. According to the patient, she has this chronic draining fistulous tract in the region about 3 to 4 cm above the umbilicus, which never stops draining this purulent exudate and is deep, most likely is associated with the mesh and chronic colonization and infection there, which cannot be removed. MEDICATIONS: Has been discussed above. Now, in addition to what I described, she is on; 1. Amiodarone. 2. Cholestyramine. 3. Coreg. 4. Plavix. 5. Cymbalta. 6. Lovenox. 7. Lamictal. 8. Mirapex. 9. Ranexa. Currently, she is receiving inhalers, Eliquis, vitamin B12, duloxetine, Zestril, meropenem, pantoprazole, Lyrica, Carafate, topiramate. SOCIAL HISTORY: Never smoker. [place] in [place], [place]. FAMILY HISTORY: Noncontributory. PHYSICAL EXAMINATION: VITAL SIGNS: T-max 97.8, blood pressure 160/69, heart rate 69, respiratory rate 16, O2 saturation 94% to 95%. SKIN: Shows the fistulous opening kind of a pinhole right above the umbilicus with some brownish drainage from it. She has a port which is palpable in the left subclavian location, which is not inflamed and is nonfunctional. Peripheral IV access. No lymphadenopathy. HEENT: Ocular movements conjugate. Pupils are equal. Oral cavity is moist. Still quite a few teeth in place. NECK: Supple. No jugular vein distention. No thyromegaly. LUNGS: Symmetric. Clear breath sounds. HEART: S1-S2 regular rate without murmurs. No S3 or S4. ABDOMEN: Soft. Not distended or tender. No ascites. No bladder distention. She has tenderness in the right flank and lower quadrant. She did not have tenderness in the suprapubic area. EXTREMITIES: No edema. Pulses 1+ in dorsalis pedis. LABORATORY STUDIES: Urinalysis showed greater than 50 wbc's. White cell count was 7.1, hemoglobin 11, platelets 202 with 69% neutrophils. SARS-CoV PCR not detected. The last culture from April 01 with Klebsiella pneumoniae with susceptibility to cefoxitin, amikacin, and meropenem only. IMAGING DATA: Abdomen and pelvis CT done 2 days ago, which demonstrated no obstructive uropathy, no evidence of pyelonephritis. There is a little bit of air in the nondependent portion of the bladder and this is due to the recent insertion of a catheter for collection of a urine sample by Dr. Burnett. There is a small herniation of mesenteric fat in the right lower quadrant, but no bowel herniation. She has a chest CT from June 2019 and it showed no acute process identified. She had a PICC line inserted in the right arm. ASSESSMENT: Multiple abdominal surgeries primarily for management of bladder prolapse with bladder suspension, some unclear bowel pathology which led to peritonitis and required a hemicolectomy many years ago, done elsewhere. This resulted in a hernia which had to be repaired with mesh. The mesh led to complications, particularly in relationship to penetration of the bladder. Again, this history is not clear and I think that I am not going to take her report at face value because of her clear-cut memory impairment. Anyway, she had this extensive surgery to remove this mesh, but certainly not all the material has been removed and she still has mesh in her abdominal wall and most likely is chronically infected leading to this fistulous opening right above the umbilicus and now she has had those multiple recurring episodes of what has been felt to represent cystitis fairly refractory to treatment with multiple antimicrobial agents and now she has developed as expected a resistant pathogen. DISCUSSION: This is a quite refractory case of recurrent cystitis. Initially, she had a stone and had a stitch in the inner aspect of the bladder mucosa and this was lasered in 2016. It is not clear which procedure led to the placement of this stitch. It is not clear that she had a repeat cystoscopy since then, but looks like she needs another one because just giving her antimicrobials is not going to resolve the recurrent uti. The reason for the recurring infections is either persistence of postvoid residual, maybe affinity of the perineal bacteria for the bladder and urethral cells lining the mucosa of those structures, reflux, bladder diverticula, and recurrence of bladder stones. Neurogenic bladder is less likely. She does have some postvoid residue, but not to the extent that she would require in and out catheterization. A PICC line has been inserted with the intention of giving her antimicrobial therapy. I do not think that long-term antimicrobial therapy is going to fix the problem. Again, antibiotics are not going to resolve whatever structural mechanism that is leading to the recurring infections with such persistence, so I think that 3 to 7 days of treatment and then I think she is going to need a repeat cystoscopy. In addition to that, she has this chronically infected mesh in the periumbilical region and with this sinus tract and those processes are fairly intractable and very hard to remove this type of mesh when gets infected. Right now, she does not require antimicrobial therapy for this problem since it is freely draining, but from time to time, they make become obstructed and develop inflammatory changes there, not the case at this moment. Removal of the mesh is not an option usually in those cases. Her cognitive deficit particularly in relationship to memory, hinders proper evaluation of the urinary symptoms. It is possible for example, that many episodes of positive urine culture are asymptomatic and did not warrant treatment. Job ID: [id number] [facility]
[2020-04-03] MEDS: DULoxetine 60 MG CAP PO SCH (21:51)
[2020-04-03] MEDS: hydrALAZINE 10 MG TAB PO PRN (21:56)
--- NOTE | 2020-04-03 22:52 | PDOC.HOSPP ---
- Subjective Encounter Date: 04/03/20 Encounter Time: 18:00 Subjective: Patient seen and examined for recurrent UTI. Denies any new complaints. No fever or chills reported. Denies any urinary symptoms - Objective Vital Signs & Weight: Vital Signs (12 hours) Temp Pulse Resp BP BP Pulse Ox 04/03/20 21:56 77 210/89 H 04/03/20 21:50 77 210/89 H 04/03/20 20:05 187/82 H 94 L 04/03/20 19:04 98.0 F 89 16 193/97 H 94 L 04/03/20 16:36 97.5 F L 69 16 160/69 H 94 L 04/03/20 12:04 97.9 F 68 20 193/98 H 95 04/03/20 11:39 70 I&O: 04/02/20 04/03/20 04/04/20 06:59 06:59 06:59 Intake Total 480 340 Output Total 980 Balance 480 -640 Result Diagrams: 04/02/20 06:08 04/02/20 06:08 Radiology Reviewed by me: Yes (CT abdomen reviewed) Hospitalist ROS - Review of Systems Respiratory: denies: cough, dry, shortness of breath, hemoptysis, SOB with excertion, pleuritic pain, sputum, wheezing, other Cardiovascular: denies: chest pain, palpitations, orthopnea, paroxysmal noc. dyspnea, edema, light headedness, other - Medication Medications: Active Medications Generic Name Dose Route Start Last Admin Trade Name Freq PRN Reason Stop Dose Admin Acetaminophen 650 mg 04/02/20 00:46 04/03/20 08:30 Acetaminophen 325 Mg Tab PO 650 mg Q4H PRN Administration Headache/Fever/Mild Pain (1-3) Apixaban 5 mg 04/02/20 09:00 04/03/20 21:50 Apixaban 5 Mg Tab PO 5 mg BID NATHANAEL Administration Carvedilol 25 mg 04/02/20 09:00 04/03/20 21:51 Carvedilol 25 Mg Tab PO 25 mg BID NATHANAEL Administration Cyanocobalamin 100 mcg 04/02/20 09:00 04/02/20 09:56 Cyanocobalamin 1000 Mcg/Ml Vial IM 100 mcg Q14D NATHANAEL Administration Duloxetine HCl 30 mg 04/02/20 09:00 04/03/20 08:31 Duloxetine 30 Mg Cap PO 30 mg DAILY NATHANAEL Administration Duloxetine HCl 60 mg 04/02/20 21:00 04/03/20 21:51 Duloxetine 60 Mg Cap PO 60 mg HS NATHANAEL Administration Famotidine 20 mg 04/02/20 09:00 04/03/20 21:50 Famotidine 20 Mg Tab PO 20 mg BID NATHANAEL Administration Hydralazine HCl 10 mg 04/02/20 01:42 04/03/20 21:56 Hydralazine 10 Mg Tab PO 10 mg QID PRN Administration HIGH BLOOD PRESSURE Meropenem 1 gm/ Device 50 mls @ 100 mls/hr 04/02/20 06:00 04/03/20 22:01 IVPB 50 mls Q8HR NATHANAEL Administration Lisinopril 2.5 mg 04/02/20 09:00 04/03/20 11:39 Lisinopril 2.5 Mg Tab PO 2.5 mg DAILY NATHANAEL Administration Opium Tincture 0.6 ml 04/02/20 17:00 04/03/20 18:15 Opium Tincture 10% (1ml Charge) PO 0.6 ml 0730,1700 NATHANAEL Administration Pantoprazole Sodium 40 mg 04/02/20 09:00 04/03/20 21:51 Pantoprazole 40 Mg Tab PO 40 mg BID NATHANAEL Administration Phenazopyridine HCl 100 mg 04/02/20 09:00 04/03/20 18:15 Phenazopyridine Hcl 100 Mg Tab PO 100 mg PC NATHANAEL Administration Pregabalin 150 mg 04/02/20 21:00 04/03/20 21:51 Pregabalin 75 Mg Cap PO 150 mg BID NATHANAEL Administration Sucralfate 1 gm 04/02/20 09:00 04/03/20 21:51 Sucralfate 1 Gm Tab PO 1 gm QID NATHANAEL Administration Topiramate 25 mg 04/02/20 09:00 04/03/20 21:51 Topiramate 25 Mg Tab PO 25 mg BID NATHANAEL Administration - Exam General Appearance: NAD Neck: supple, no JVD Heart: RRR, no gallops Respiratory: no wheezes, no ronchi Gastrointestinal: soft, non-tender Extremities: no cyanosis Hosp A/P - Plan DVT proph w/SCDs Resistant UTI Hypertension Coronary artery disease Systemic lupus erythematosus Dyslipidemia Anxiety Plan: Monitor postvoid residual. Await infectious disease input. Continue IV meropenem. Continue home medications including carvedilol, Eliquis, lisinopril and other medications as above.
[2020-04-04] MEDS: Acetaminophen 325 MG TAB PO PRN ×3 (01:25→15:32)
[2020-04-04] MEDS: hydrALAZINE 10 MG TAB PO PRN ×2 (01:25→22:01)
[2020-04-04] MEDS ORDERED: Sodium Chloride 0.9% 10 ML ONE ×3 (06:08→22:00)
[2020-04-04] MEDS ORDERED: hydrALAZINE 20 MG/ML VIAL SLOW IVP SCH (06:15)
[2020-04-04] MEDS: Lisinopril 2.5 MG TAB PO SCH (06:16)
[2020-04-04] MEDS: MEROPENEM 1 GM/50 ML 1 GM in Premix Bag 1 BAG IVPB SCH ×3 (06:18→22:02)
[2020-04-04] MEDS ORDERED: Cholestyramine/Aspartame 4 gm Packet PO SCH (07:00)
[2020-04-04] MEDS: Sucralfate 1 GM TAB PO SCH ×3 (08:48→17:23)
[2020-04-04] MEDS: Opium Tincture 10% (1ml Charge) PO SCH ×2 (08:48→19:12)
[2020-04-04] MEDS: DULoxetine 30 MG CAP PO SCH (08:49)
[2020-04-04] MEDS: Phenazopyridine HCl 100 MG TAB PO SCH ×3 (08:49→17:23)
[2020-04-04] MEDS: Apixaban 5 MG TAB PO SCH ×2 (08:50→22:01)
[2020-04-04] MEDS: Saccharomyces boulardii 250 MG CAP PO SCH (08:50)
[2020-04-04] MEDS: Topiramate 25 MG TAB PO SCH ×2 (08:52→20:32)
[2020-04-04] MEDS: Pregabalin 75 MG CAP PO SCH ×2 (08:54→22:02)
[2020-04-04] MEDS: Famotidine 20 MG TAB PO SCH ×2 (08:54→22:02)
[2020-04-04] MEDS: Carvedilol 25 MG TAB PO SCH ×2 (08:58→20:31)
[2020-04-04] MEDS: Cholestyramine/Aspartame 4 gm Packet PO SCH (19:13)
[2020-04-04] MEDS: DULoxetine 60 MG CAP PO SCH (20:31)
[2020-04-04] MEDS ORDERED: NIFEdipine XL 30 MG TAB PO SCH (21:30)
--- NOTE | 2020-04-04 23:17 | PDOC.HOSPP ---
- Subjective Encounter Date: 04/04/20 Encounter Time: 14:00 Subjective: Patient seen and examined for resistant UTI. Suprapubic discomfort improving. Denies any dysuria or hematuria. No fever or chills reported. - Objective Vital Signs & Weight: Vital Signs (12 hours) Temp Pulse Resp BP BP Pulse Ox 04/04/20 22:03 78 193/90 H 04/04/20 22:01 78 04/04/20 19:04 97.8 F 78 20 207/93 H 97 04/04/20 17:10 80 22 H 141/78 H 96 04/04/20 11:54 97.6 F 78 20 140/68 95 I&O: 04/03/20 04/04/20 04/05/20 06:59 06:59 06:59 Intake Total 480 1040 Output Total 1880 Balance 480 -840 Result Diagrams: 04/02/20 06:08 04/02/20 06:08 Radiology Reviewed by me: Yes (CT abdomen reviewed) Hospitalist ROS - Review of Systems Cardiovascular: denies: chest pain, palpitations, orthopnea, paroxysmal noc. dyspnea, edema, light headedness, other Gastrointestinal: denies: nausea, vomiting, abdominal pain, diarrhea, constipation, melena, hematochezia, other - Medication Medications: Active Medications Generic Name Dose Route Start Last Admin Trade Name Freq PRN Reason Stop Dose Admin Acetaminophen 650 mg 04/02/20 00:46 04/04/20 15:32 Acetaminophen 325 Mg Tab PO 650 mg Q4H PRN Administration Headache/Fever/Mild Pain (1-3) Apixaban 5 mg 04/02/20 09:00 04/04/20 22:01 Apixaban 5 Mg Tab PO 5 mg BID NATHANAEL Administration Carvedilol 25 mg 04/02/20 09:00 04/04/20 20:31 Carvedilol 25 Mg Tab PO 25 mg BID NATHANAEL Administration Cholestyramine Resin 4 gm 04/04/20 17:00 04/04/20 19:13 Cholestyramine/Aspartame 4 Gm Packet PO 4 gm 0700,1700 NATHANAEL Administration Cyanocobalamin 100 mcg 04/02/20 09:00 04/02/20 09:56 Cyanocobalamin 1000 Mcg/Ml Vial IM 100 mcg Q14D NATHANAEL Administration Duloxetine HCl 30 mg 04/02/20 09:00 04/04/20 08:49 Duloxetine 30 Mg Cap PO 30 mg DAILY NATHANAEL Administration Duloxetine HCl 60 mg 04/02/20 21:00 04/04/20 20:31 Duloxetine 60 Mg Cap PO 60 mg HS NATHANAEL Administration Famotidine 20 mg 04/02/20 09:00 04/04/20 22:02 Famotidine 20 Mg Tab PO 20 mg BID NATHANAEL Administration Hydralazine HCl 10 mg 04/02/20 01:42 04/04/20 22:01 Hydralazine 10 Mg Tab PO 10 mg QID PRN Administration HIGH BLOOD PRESSURE Meropenem 1 gm/ Device 50 mls @ 100 mls/hr 04/02/20 06:00 04/04/20 22:02 IVPB 50 mls Q8HR NATHANAEL Administration Lisinopril 2.5 mg 04/02/20 09:00 04/04/20 06:16 Lisinopril 2.5 Mg Tab PO 2.5 mg DAILY NATHANAEL Administration Nifedipine 30 mg 04/04/20 21:30 04/04/20 22:03 Nifedipine Xl 30 Mg Tab PO 04/04/20 23:30 30 mg NOW NATHANAEL Administration Opium Tincture 0.6 ml 04/02/20 17:00 04/04/20 19:12 Opium Tincture 10% (1ml Charge) PO 0.6 ml 0730,1700 NATHANAEL Administration Pantoprazole Sodium 40 mg 04/02/20 09:00 04/04/20 22:03 Pantoprazole 40 Mg Tab PO 40 mg BID NATHANAEL Administration Phenazopyridine HCl 100 mg 04/02/20 09:00 04/04/20 17:23 Phenazopyridine Hcl 100 Mg Tab PO 100 mg PC NATHANAEL Administration Pregabalin 150 mg 04/02/20 21:00 04/04/20 22:02 Pregabalin 75 Mg Cap PO 150 mg BID NATHANAEL Administration Saccharomyces Boulardii 250 mg 04/04/20 09:00 04/04/20 08:50 Saccharomyces Boulardii 250 Mg Cap PO 250 mg DAILY NATHANAEL Administration Sucralfate 1 gm 04/02/20 09:00 04/04/20 17:23 Sucralfate 1 Gm Tab PO 1 gm QID NATHANAEL Administration Topiramate 25 mg 04/02/20 09:00 04/04/20 20:32 Topiramate 25 Mg Tab PO 25 mg BID NATHANAEL Administration - Exam General Appearance: NAD Heart: RRR, no gallops Respiratory: no wheezes, no ronchi Gastrointestinal: soft, no guarding, no rigidity Extremities: no cyanosis Neurological: no new deficit Hosp A/P - Plan DVT proph w/SCDs Resistant UTI Hypertension Coronary artery disease Systemic lupus erythematosus Dyslipidemia Anxiety Plan: Discussed with infectious disease. Will arrange for Invanz 1 g daily for 1 week. PICC line has been placed. Continue meropenem while in hospital. Continue lisinopril, Procardia XL, carvedilol and other medications as above. DC after antibiotics set up.
[2020-04-05] MEDS: Sucralfate 1 GM TAB PO SCH ×3 (01:21→13:23)
[2020-04-05] MEDS: MEROPENEM 1 GM/50 ML 1 GM in Premix Bag 1 BAG IVPB SCH ×2 (06:39→14:35)
[2020-04-05] MEDS: Cholestyramine/Aspartame 4 gm Packet PO SCH (07:21)
[2020-04-05] MEDS: Opium Tincture 10% (1ml Charge) PO SCH (07:54)
[2020-04-05] MEDS: Lisinopril 2.5 MG TAB PO SCH (07:54)
[2020-04-05] MEDS: DULoxetine 30 MG CAP PO SCH ×2 (07:54→07:56)
[2020-04-05] MEDS: Famotidine 20 MG TAB PO SCH (07:54)
[2020-04-05] MEDS: Carvedilol 25 MG TAB PO SCH (07:55)
[2020-04-05] MEDS: Pregabalin 75 MG CAP PO SCH (07:55)
[2020-04-05] MEDS: Apixaban 5 MG TAB PO SCH (07:55)
[2020-04-05] MEDS: Saccharomyces boulardii 250 MG CAP PO SCH (07:55)
[2020-04-05] MEDS: Topiramate 25 MG TAB PO SCH (07:56)
[2020-04-05] MEDS: Phenazopyridine HCl 100 MG TAB PO SCH ×2 (09:55→13:23)
[2020-04-05 11:37] VITALS: BP 117/57; TEMP 98.2
--- NOTE | 2020-04-05 18:24 | PDOC.DS.DS ---
Provider - Provider Date of Admission: 04/01/20 21:55 Date of Discharge: 04/05/20 Admitting Provider: Tyrone Cruz MD Consultations: Infectious Disease Primary Care Physician: Eli Gtz MD Course - Hospital Course Hospital Course: Patient is 74-year-old female with recurrent UTIs presented to the hospital due to increasing suprapubic discomfort. She had a recent urinalysis with cultures done as outpatient with Dr. Burnett that was consistent with resistant strain of Klebsiella. Please refer to the history and physical for further details. The patient was admitted to the hospital with above diagnosis. Repeat urine culture showed Klebsiella pneumonia sensitive to Carbapenem. She was placed on meropenem which has been transitioned to ertapenem via PICC line for 1 more week. Patient was also evaluated by infectious disease. CT scan of the abdomen was negative for obstructive uropathy. Blood culture remained negative. She had left shift on the day of admission that improved with antibiotics. The suprapubic discomfort has significantly improved. Final diagnosis: Suprapubic discomfort due to resistant Klebsiella UTI Hypertension Coronary artery disease Systemic lupus erythematosus Dyslipidemia Anxiety Resuscitation Status: 04/02/20 00:46 Resuscitation Status Routine Co-Sign Provider: Resuscitation Status: FULL: Full Resuscitation - Labs Lab Results: 04/02/20 06:08 04/02/20 06:08 Microbiology - Entire Visit 04/01/20 18:48 Urine clean catch Urine Culture - Final Klebsiella pneumoniae ssp pneu 04/01/20 19:38 Venous blood - Right Hand Blood Culture - Preliminary NO GROWTH AT 48 HOURS 04/01/20 19:25 Venous blood - Right Arm Blood Culture - Preliminary NO GROWTH AT 48 HOURS - Physical Exam Vitals: Vital Signs (12 hours) Temp Pulse Resp BP Pulse Ox 04/05/20 11:36 98.2 F 81 22 H 117/57 L 95 04/05/20 07:55 98.5 F 79 20 128/60 95 Weight Weight 189 lb 9.561 oz Physical Exam: The patient was seen and examined on the day of discharge. Plan - Discharge Medications Prescriptions: Ertapenem [Invanz] 1 gm IVPB Q24HR #7 vial Home Medications: Medication Instructions Recorded Confirmed Type Pantoprazole [Protonix] 40 mg PO BID 07/10/15 04/02/20 History Pregabalin [Lyrica] 150 mg PO BID 07/10/15 04/02/20 History Opium Tincture 10% 0.6 ml PO BID 04/07/16 04/02/20 History DULoxetine [Cymbalta] 30 mg PO DAILY 05/14/16 04/02/20 History Cyanocobalamin 1000 MCG/ML VIA 100 mcg IM Q14D 12/03/17 04/02/20 History [Vitamin B-12] Topiramate [Topamax] 1 tab PO BID 12/03/17 04/02/20 History Cholestyramine (With Sugar) 4 gm PO BID 06/16/19 04/02/20 History [Cholestyramine Powder] Apixaban [Eliquis] 5 mg PO BID #60 tablet 06/23/19 04/02/20 Rx Carvedilol [Coreg] 25 mg PO BID #60 tab 06/23/19 04/02/20 Rx DULoxetine [Cymbalta] 60 mg PO HS cap 06/23/19 04/02/20 Rx ALButerol Sulfate [Ventolin Neb] 1 puff INH ASDIR PRN 11/01/19 04/02/20 History Botulinum Toxin [Botox] 2.5 units IM ASDIR 11/01/19 04/02/20 History hydrALAZINE [Apresoline] 10 mg PO QID PRN 11/01/19 04/02/20 History Furosemide [Lasix] 40 mg PO DAILYPRN PRN #10 tab 11/07/19 04/03/20 Rx Potassium Chloride [K-Dur] 20 meq PO DAILY PRN #10 tab 11/07/19 04/03/20 Rx Sucralfate [Carafate] 1 gm PO QID #56 tab 11/07/19 04/03/20 Rx Lisinopril 2.5 mg PO DAILY 04/02/20 04/02/20 History Ertapenem [Invanz] 1 gm IVPB Q24HR #7 vial 04/05/20 Rx Saccharomyces boulardii [Florastor] 250 mg PO DAILY cap 04/05/20 Rx Allergies: mirabegron [From Myrbetriq] Allergy (Verified 04/03/20 01:26) NSAIDS (Non-Steroidal Anti-Inflamma Allergy (Verified 04/03/20 01:26) states not good for the kidneys valsartan [From Diovan] Allergy (Verified 04/03/20 01:26) Rash vancomycin Allergy (Verified 04/03/20 01:) - Follow up Plan Referrals: Moshe Burnett MD [Active] - 14 Days Eli Gtz MD [Primary Care Provider] - 7 Days Los Ren MD [Active] - 7 Days Disposition: HOME HEALTH Quality - Care Measures CORE MEASURES:: N/A
== END 2020-04-05 15:55 | disposition home health service (06) | DRG 690 ==
LOC: ERS 18:31 → ERHOLD 21:55 → 3SE 04-02 12:49
PROVIDERS: ADMIT Internal Medicine; ATTEND Internal Medicine
PROC: 02HV33Z Insertion of Infusion Device into Superior Vena Cava, Percutaneous Approach (ICD-10-PCS; principal; 2020-04-03)
PROC: B548ZZA Ultrasonography of Superior Vena Cava, Guidance (ICD-10-PCS; 2020-04-03)
PROC: B518ZZA Fluoroscopy of Superior Vena Cava, Guidance (ICD-10-PCS; 2020-04-03)
DX: N30.00 Acute cystitis without hematuria (principal); Z16.24 Resistance to multiple antibiotics; B96.1 Klebsiella pneumoniae [K. pneumoniae] as the cause of diseases classified elsewhere; Z20.828 Contact with and (suspected) exposure to other viral communicable diseases; I25.10 Atherosclerotic heart disease of native coronary artery without angina pectoris; M32.9 Systemic lupus erythematosus, unspecified; E78.5 Hyperlipidemia, unspecified; F41.9 Anxiety disorder, unspecified; F32.9 Major depressive disorder, single episode, unspecified; Z96.611 Presence of right artificial shoulder joint; Z96.612 Presence of left artificial shoulder joint; M79.7 Fibromyalgia; I50.9 Heart failure, unspecified; K52.9 Noninfective gastroenteritis and colitis, unspecified; I11.0 Hypertensive heart disease with heart failure; Z88.6 Allergy status to analgesic agent; Z88.1 Allergy status to other antibiotic agents; Z88.8 Allergy status to other drugs, medicaments and biological substances; Z90.49 Acquired absence of other specified parts of digestive tract; Z90.710 Acquired absence of both cervix and uterus; Z79.899 Other long term (current) drug therapy; Z79.01 Long term (current) use of anticoagulants
CPT/HCPCS: 36415; 36569; 74177; 80048; 80053; 81001; 81003; 81015; 82550; 83690; 83880; 85025; 87040; 87077; 87086; 87186; 87635; 96365; 96367; C1751; J0360; J2185; J3420; Q9967; S0028; U0003

== ENCOUNTER 2020-04-15 18:28 | Inpatient (IN) | payer MEDICARE ==
[2020-04-15 19:00] LABS: #Eosinphils 0.2 thou/uL (0.0-0.7); #Lymphocytes 0.9 thou/uL (1.20-3.40); #Monocytes 0.5 thou/uL (0.11-0.59); #Neutrophils 6.1 thou/uL (1.40-6.50); %Basophils 0.3 % (0.0-1.0); %Eosinophils 2.6 % (0.0-10.0); %Lymphocytes 11.8 % (21.0-51.0); %Monocytes 6.7 % (0.0-10.0); %Neutrophils 78.7 % (42.0-75.0); Hemoglobin 10.5 g/dL (12.0-16.0); Mean Corpuscular HGB CONC 31.2 g/dL (32.0-36.0); Mean Corpuscular Hemoglobin 27.6 pg (27.0-31.0); Mean Corpuscular Volume 88.5 fL (78.0-98.0); Mean Platelet Volume 7.5 fL (7.4-10.4); Platelet Count 322 thou/uL (130-400); RBC Distribution Width 17.1 % (11.5-14.5); White Blood Cell (WBC) Count 7.7 thou/uL (4.8-10.8)
[2020-04-15 19:25] LABS: ALT (SGPT) 22 U/L (8-55); AST (SGOT) 19 U/L (5-34); Albumin 3.4 g/dL (3.4-4.8); Alkaline Phosphatase 137 U/L (40-110); Anion Gap 12 mmol/L (10-20); BUN (Urea Nitrogen) 12 mg/dL (9.8-20.1); Bilirubin, Total 0.3 mg/dL (0.2-1.2); Calc. Creatinine Clearance 0 mL/min (70-130); Calcium 8.6 mg/dL (7.8-10.44); Carbon Dioxide 26 mmol/L (23-31); Chloride 105 mmol/L (98-107); Globulin 3.3 g/dL (2.4-3.5); Glucose 89 mg/dL (83-110); Potassium 4.2 mmol/L (3.5-5.1); Protein, Total 6.7 g/dL (6.0-8.3); Sodium 139 mmol/L (136-145)
--- NOTE | 2020-04-15 20:12 | RAD ---
PORTABLE CHEST: Date: 04-15-2020 PROVIDED CLINICAL HISTORY: Chest pain FINDINGS: Comparison 06-16-2019. Cardiac silhouette appears enlarged, which may be at least partially on the basis of portable techniq ue. Left subclavian central catheter is again seen, in similar position. Vascular calcification is se en. There is left basilar pleural parenchymal opacity and blunting of the right costophrenic angle, c ompatible with right pleural fluid. There is no evidence for pneumothorax. IMPRESSION: Bilateral pleural fluid, left greater than right, with adjacent left basilar subsegmental atelectasis and/or infiltrate. Correlate for pneumonia. POS: MEGAN
[2020-04-15] MEDS ORDERED: Azithromycin 500 MG VIAL ONE (22:33)
[2020-04-15] MEDS ORDERED: hydrALAZINE 10 MG TAB PO SCH (23:00)
[2020-04-15] MEDS ORDERED: Meropenem 2 GM, Admixture Fee 1 EACH in Sodium Chloride 0.9% 100 ML IVPB SCH (23:00)
[2020-04-16 01:11] LABS: Bacteria/HPF None Seen HPF (None Seen); Bilirubin Negative (Negative); Blood, Urine Negative (Negative); Clarity Clear (Clear); Glucose, Urine (Dipstick) Normal (Negative); Ketone, Urine Negative (Negative); Leukocyte 25 Leu/uL (Negative); Mucous/LPF Rare LPF (<2+); Nitrite Negative (Negative); Protein, Urine (Dipstick) Negative (Neg-Trace); RBC/HPF 0-3 HPF (0-3); Specific Gravity, Urine 1.014 (1.002-1.036); Squamous Epithelial 0-3 HPF (0-3); Urobilinogen Normal mg/dL (Less than 2); pH, Urine 5.5 (5.0-9.0)
[2020-04-16] MEDS ORDERED: Ondansetron ODT 4 MG TAB PO PRN (01:22)
[2020-04-16] MEDS ORDERED: Ondansetron PF 4 MG/2 ML Vial IVP PRN (01:22)
[2020-04-16] MEDS ORDERED: Guaifenesin DM 100-10/5 ML UDCUP PO PRN (01:22)
[2020-04-16] MEDS ORDERED: Furosemide 40 MG TAB PO PRN (01:26)
--- NOTE | 2020-04-16 01:31 | PDOC.HHP ---
Hospitalist HPI - History of Present Illness dyspnea History of Present Illness: Case of an 74y/o with a pmhx of lupus, fibromyalgia, hx of tias, vasculitis, atrial fib on, htn chf and bronchial asthma who comes to hospital complaining of sob. patient refers she was on her usual state of health until 1 week ago when she started with dyspnea. she states she has been having intermittent episodes of dyspnea associated with wheezing and cough, cough is occasional and non productive. patient denies any fever chills nausea vomiting changes in taste or smell, no know covid contacts. at the ED she was evaluated and cxr showed possible infiltrate on LLL with a recent hospitalization a few weeks ago for which hospitalist was called for further evaluation and management. Hospitalist ROS - Review of Systems All other systems reviewed; all pertinent +/- noted in HPI/Subj Hospitalist History - Past Surgical History Past Surgical History: reports: Appendectomy, Cholecystectomy - Family History Family History: reports: no pertinent history - Social History Smoking Status: Never smoker Alcohol: reports: None Drugs: reports: none - Exam General Appearance: NAD, awake alert Eye: PERRL, anicteric sclera ENT: normocephalic atraumatic, no oropharyngeal lesions Neck: supple, symmetric, no JVD Heart: RRR, no murmur, no gallops, no rubs Respiratory: no rales, no ronchi, tachypneic, wheezes Gastrointestinal: soft, non-tender, non-distended, normal bowel sounds Extremities: no cyanosis, no clubbing, no edema Skin: normal turgor, no lesions, no rashes Neurological: cranial nerve grossly intact, normal sensation to touch Musculoskeletal: normal tone, normal strength, no muscle wasting Psychiatric: normal affect, normal behavior, A&O x 3 Hospitalist Results - Labs Result Diagrams: 04/16/20 01:43 04/16/20 01:43 Lab results: WBC 7.7 thou/uL (4.8-10.8) 04/15/20 18:48 Hgb 10.5 g/dL (12.0-16.0) L 04/15/20 18:48 Hct 33.6 % (36.0-47.0) L 04/15/20 18:48 MCV 88.5 fL (78.0-98.0) 04/15/20 18:48 Plt Count 322 thou/uL (130-400) 04/15/20 18:48 Neutrophils % 78.7 % (42.0-75.0) H 04/15/20 18:48 Sodium 139 mmol/L (136-145) 04/15/20 18:48 Potassium 4.2 mmol/L (3.5-5.1) 04/15/20 18:48 Chloride 105 mmol/L (98-107) 04/15/20 18:48 Carbon Dioxide 26 mmol/L (23-31) 04/15/20 18:48 BUN 12 mg/dL (9.8-20.1) 04/15/20 18:48 Creatinine 0.84 mg/dL (0.6-1.1) 04/15/20 18:48 Glucose 89 mg/dL (83-110) 04/15/20 18:48 Lactic Acid 0.9 mmol/L (0.5-2.2) 04/15/20 18:48 Calcium 8.6 mg/dL (7.8-10.44) 04/15/20 18:48 Total Bilirubin 0.3 mg/dL (0.2-1.2) 04/15/20 18:48 AST 19 U/L (5-34) 04/15/20 18:48 ALT 22 U/L (8-55) 04/15/20 18:48 Alkaline Phosphatase 137 U/L (40-110) H 04/15/20 18:48 Troponin I Less than 0.010 ng/mL (< 0.028) 04/15/20 18:48 B-Natriuretic Peptide 159.1 pg/mL (0-100) H 04/15/20 18:48 Serum Total Protein 6.7 g/dL (6.0-8.3) 04/15/20 18:48 Albumin 3.4 g/dL (3.4-4.8) 04/15/20 18:48 Urine Ketones Negative mg/dL (Negative) 04/16/20 00:47 Urine Blood Negative (Negative) 04/16/20 00:47 Urine Nitrite Negative (Negative) 04/16/20 00:47 Ur Leukocyte Esterase 25 Elsie/uL (Negative) A 04/16/20 00:47 Urine RBC 0-3 HPF (0-3) 04/16/20 00:47 Urine WBC 4-6 HPF (0-3) A 04/16/20 00:47 Ur Squamous Epith Cells 0-3 HPF (0-3) 04/16/20 00:47 Urine Bacteria None Seen HPF (None Seen) 04/16/20 00:47 Hospitalist H&P A/P - Problem (1) Hospital-acquired pneumonia Code(s): J18.9 - PNEUMONIA, UNSPECIFIED ORGANISM; Y95 - NOSOCOMIAL CONDITION Status: Acute (2) Asthma exacerbation Code(s): J45.901 - UNSPECIFIED ASTHMA WITH (ACUTE) EXACERBATION Status: Acute (3) CAD (coronary artery disease) Code(s): I25.10 - ATHSCL HEART DISEASE OF [place] CORONARY ARTERY W/O ANG PCTRS Status: Chronic (4) CHF (congestive heart failure) Code(s): I50.9 - HEART FAILURE, UNSPECIFIED Status: Chronic (5) Dyslipidemia Code(s): E78.5 - HYPERLIPIDEMIA, UNSPECIFIED Status: Chronic (6) Hypertension Code(s): I10 - ESSENTIAL (PRIMARY) HYPERTENSION Status: Chronic Qualifiers: (7) Lupus Code(s): M32.9 - SYSTEMIC LUPUS ERYTHEMATOSUS, UNSPECIFIED Status: Chronic (8) Obesity (BMI 30.0-34.9) Code(s): E66.9 - OBESITY, UNSPECIFIED Status: Chronic (9) Paroxysmal a-fib Code(s): I48.0 - PAROXYSMAL ATRIAL FIBRILLATION Status: Chronic - Plan Plan: Case of an 74y/o female with the stated pmhx who present with dyspena pneumoina - recent hospitalization a few weeks ago due to MDR uti - cxr consistent with pneumonia, infiltrate on LLL - will start levaquin + zyvox, allergic to vanc - id consulted - covid 19 test - 02 supplementation - holding duloxetine due to interaction w zyvox bronchial asthma exacerbation - wheezing on physical exam - will start duo nebs q 6hr - solumedrol 40 q 6hr atrial fibrillation - continue rate controlled w beta mario - continue ac with elliquis htn / chf - continue home meds for chronic conditions
[2020-04-16 01:50] LABS: SARS-CoV-2 NAA Rapid Test Not Detected (NotDetected)
[2020-04-16 02:09] LABS: Hemoglobin 9.8 g/dL (12.0-16.0); Mean Corpuscular HGB CONC 30.9 g/dL (32.0-36.0); Mean Corpuscular Hemoglobin 27.3 pg (27.0-31.0); Mean Corpuscular Volume 88.4 fL (78.0-98.0); Mean Platelet Volume 7.6 fL (7.4-10.4); Platelet Count 265 thou/uL (130-400); RBC Distribution Width 16.9 % (11.5-14.5); Red Blood Cell (RBC) Count 3.59 mill/uL (4.20-5.40); White Blood Cell (WBC) Count 7.4 thou/uL (4.8-10.8)
[2020-04-16 02:31] LABS: Band 2 % (5-11); Eosinophils 2 % (0-10); Hypochromia SLIGHT = 6-15 cells (100X) (0-5/hpf); Lymphocytes 12 % (21-51); MDiff Complete? YES; Monocytes 6 % (0-10); Neutrophil 78 % (42-75); Platelet Morphology Comment Appears Adequate
[2020-04-16 02:36] LABS: ALT (SGPT) 23 U/L (8-55); AST (SGOT) 20 U/L (5-34); Alkaline Phosphatase 113 U/L (40-110); Anion Gap 14 mmol/L (10-20); BUN (Urea Nitrogen) 12 mg/dL (9.8-20.1); Bilirubin, Total 0.4 mg/dL (0.2-1.2); Calc. Creatinine Clearance 0 mL/min (70-130); Calcium 8.6 mg/dL (7.8-10.44); Carbon Dioxide 22 mmol/L (23-31); Chloride 107 mmol/L (98-107); Globulin 3.6 g/dL (2.4-3.5); Glucose 95 mg/dL (83-110); Potassium 3.7 mmol/L (3.5-5.1); Protein, Total 6.6 g/dL (6.0-8.3); Sodium 139 mmol/L (136-145)
[2020-04-16] MEDS ORDERED: Bacteriostatic Water 30 ML VIAL FS PRN (03:00)
[2020-04-16] MEDS ORDERED: methylPREDNISolone Sod Succ 40 MG VIAL ONE (06:22)
[2020-04-16] MEDS: methylPREDNISolone Sod Succ 40 MG VIAL IVP SCH ×2 (06:29→12:29)
[2020-04-16] MEDS ORDERED: Linezolid 600 MG in Premix Bag 1 BAG IVPB SCH (09:00)
[2020-04-16] MEDS ORDERED: Opium Tincture 10% (1ml Charge) PO SCH (09:00)
[2020-04-16] MEDS ORDERED: Cholestyramine/Aspartame 4 gm Packet PO SCH ×2 (10:00→19:15)
[2020-04-16] MEDS: Carvedilol 25 MG TAB PO SCH ×2 (11:06→22:44)
[2020-04-16] MEDS: Lisinopril 2.5 MG TAB PO SCH (11:06)
[2020-04-16] MEDS: Saccharomyces boulardii 250 MG CAP PO SCH (11:07)
[2020-04-16] MEDS: Apixaban 5 MG TAB PO SCH ×2 (11:07→22:44)
[2020-04-16] MEDS: Pregabalin 75 MG CAP PO SCH ×2 (12:28→21:25)
[2020-04-16] MEDS ORDERED: Iopamidol-370 76% 500 ML 1 ML ONE (13:25)
--- NOTE | 2020-04-16 15:41 | PDOC.HOSPP ---
- Subjective Encounter Date: 04/16/20 Encounter Time: 14:00 Subjective: had wheezing and sob at home, feels better now no fever or sputum production - Objective Vital Signs & Weight: Vital Signs (12 hours) Temp Pulse Resp BP BP Pulse Ox 04/16/20 12:29 97.4 F L 78 18 95 04/16/20 12:04 97.8 F 93 22 H 142/92 H 97 04/16/20 11:06 84 176/108 H 04/16/20 10:59 87 21 H 96 04/16/20 04:03 87 16 97 Weight Weight 211 lb 15.944 oz I&O: 04/15/20 04/16/20 04/17/20 06:59 06:59 06:59 Intake Total 320 Balance 320 Result Diagrams: 04/16/20 01:43 04/16/20 01:43 Hospitalist ROS - Medication Medications: Active Medications Generic Name Dose Route Start Last Admin Trade Name Freq PRN Reason Stop Dose Admin Albuterol/Ipratropium 3 ml 04/16/20 06:30 04/16/20 13:23 Ipratropium/Albuterol Sulfate 3 Ml Neb NEB 3 ml [id number] NATHANAEL Administration Apixaban 5 mg 04/16/20 09:00 04/16/20 11:07 Apixaban 5 Mg Tab PO 5 mg BID NATHANAEL Administration Carvedilol 25 mg 04/16/20 09:00 04/16/20 11:06 Carvedilol 25 Mg Tab PO 25 mg BID NATHANAEL Administration Cholestyramine Resin 4 gm 04/16/20 10:00 04/16/20 10:19 Cholestyramine/Aspartame 4 Gm Packet PO 4 gm 1000,2200 NATHANAEL Administration Lisinopril 2.5 mg 04/16/20 09:00 04/16/20 11:06 Lisinopril 2.5 Mg Tab PO 2.5 mg DAILY NATHANAEL Administration Opium Tincture 0.6 ml 04/16/20 09:00 04/16/20 09:45 Opium Tincture 10% (1ml Charge) PO 0.6 ml BID NATHANAEL Administration Pregabalin 150 mg 04/16/20 09:00 04/16/20 12:28 Pregabalin 75 Mg Cap PO 150 mg BID NATHANAEL Administration Saccharomyces Boulardii 250 mg 04/16/20 09:00 04/16/20 11:07 Saccharomyces Boulardii 250 Mg Cap PO 250 mg DAILY NATHANAEL Administration Sodium Chloride 10 ml 04/16/20 09:00 04/16/20 10:19 Flush - Normal Saline 10 Ml Syringe IVF 10 ml Q12HR NATHANAEL Administration - Exam General Appearance: awake alert Eye: PERRL, anicteric sclera ENT: no oropharyngeal lesions, moist mucosa Neck: supple, no JVD Heart: RRR, no murmur Respiratory: no wheezes, no rales, rhonchi Gastrointestinal: soft, non-tender, non-distended, normal bowel sounds Extremities: no cyanosis, no edema Neurological: cranial nerve grossly intact, no focal deficits Psychiatric: normal affect, A&O x 3 Hosp A/P (1) Pleural effusion Code(s): J90 - PLEURAL EFFUSION, NOT ELSEWHERE CLASSIFIED Status: Acute (2) Asthma exacerbation Code(s): J45.901 - UNSPECIFIED ASTHMA WITH (ACUTE) EXACERBATION Status: Acute Qualifiers: Asthma severity: moderate (3) Anxiety and depression Code(s): F41.9 - ANXIETY DISORDER, UNSPECIFIED; F32.9 - MAJOR DEPRESSIVE DISORDER, SINGLE EPISODE, UNSPECIFIED Status: Chronic (4) Chronic diarrhea Code(s): K52.9 - NONINFECTIVE GASTROENTERITIS AND COLITIS, UNSPECIFIED Status: Chronic (5) Dyslipidemia Code(s): E78.5 - HYPERLIPIDEMIA, UNSPECIFIED Status: Chronic (6) Hypertension Code(s): I10 - ESSENTIAL (PRIMARY) HYPERTENSION Status: Chronic Qualifiers: (7) Lupus Code(s): M32.9 - SYSTEMIC LUPUS ERYTHEMATOSUS, UNSPECIFIED Status: Chronic Qualifiers: Systemic lupus erythematosus type: unspecified (8) Paroxysmal a-fib Code(s): I48.0 - PAROXYSMAL ATRIAL FIBRILLATION Status: Chronic (9) Physical deconditioning Code(s): R53.81 - OTHER MALAISE Status: Chronic (10) Pulmonary hypertension Code(s): I27.2 - OTHER SECONDARY PULMONARY HYPERTENSION * DO NOT USE * Status: Suspected - Plan echo for LV and RV pressures, gentle diuresis for b/l pl effusions, likely has lupus flare up with serositis or from low albumin. Prior ef was normal in feb. milagro, C3, 4 levels, CTA chest, appreciate help from might have underlying sleep apnea with increasing right heart pressures? pt sees for lupus, has been in remission for 3 yrs now per patient, prior to which was on chemo/immunotherapy with multiple organ involvement including heart per patient PT nova has finished full course of ertapenem/meropenem for resistant klebsiella uti recently (04/12). has alb of 3, no proteinuria on UA, likely has poor absorption with chronic diarrhea from prior bowel resections/cholecystectomy etc. continue home meds coreg, eliquis, lisinopril, lyrica, florastor, questran. still has mediport which was used for chemo infusion for lupus in the past covid pcr is -ve
--- NOTE | 2020-04-16 16:03 | CON ---
DATE OF CONSULTATION: 04/16/2020 REASON FOR CONSULT: Possible pneumonia. HISTORY OF PRESENT ILLNESS: A 74-year-old whom I had seen recently on April 03 when she presented with a history of hypertension, systemic lupus erythematosus, chronic diarrhea following right hemicolectomy and cholecystectomy with the possibility of small bowel bacterial overgrowth, which is now being managed with opium for symptoms only as well as multiple abdominal surgeries with hernias which were managed with mesh, subsequently followed by a mesh infection and mesh removal at least partial. She has had bladder suspension surgery and recurring UTIs. The last time she was treated for a resistant pathogen associated cystitis with improvement in symptoms after a course of ertapenem. She has a chronic port in the left subclavian position, which had not been used in a while and needs to be removed, but basically she was discharged and went to see her physician for routine visit. When she was there, she complained of respiratory symptoms, particularly dyspnea but no cough or fever. She was having some anterior chest pains, so she was sent to respiratory clinic and SARS-CoV2 was ruled out and then she was admitted to the through the emergency room. On arrival, her BP 180/120, pulse 89, respirations 17, temperature 98.1, O2 saturation 96% on room air. She had a chest x-ray on admission, which showed enlarged cardiac silhouette, a left subclavian central catheter, vascular calcification, a left basilar pleural parenchymal opacity and blunting of the costophrenic angle, but no infiltrates noted. Her initial labs showed normal creatinine, alkaline phosphatase 137, BNP 159. Albumin 3.4. Procalcitonin 0.08. A white cell count 7.7, hemoglobin 10.5, platelets 322. Urinalysis was only 4 to 6 WBCs, SARS-CoV2 again negative. Currently Ms. Fisher is mildly dyspneic. Denies any headaches. No sore throat, odynophagia, or dysphagia. No vomiting or hematemesis or melena. No abdominal pain. She has intermittent anterior chest pain and she has this diffuse wheezing. No back pain. The previously noted genitourinary symptoms have resolved. She has chronic osteoarthrosis related knee and ankle pain. No neurological symptoms. PAST MEDICAL HISTORY: Hypertension, systemic lupus erythematosus, normal- pressure hydrocephalus, mitral valve prolapse, bladder suspension, chronic UTIs, hemicolectomy, hernia surgery with mesh, mesh infection which was partially removed. She has had a colostomy in the past, which was taken down. Hysterectomy, shoulder replacement, and laminectomy. MEDICATIONS: 1. Amiodarone. 2. Cholestyramine. 3. Coreg. 4. Plavix. 5. Cymbalta. 6. Lovenox. 7. Lamictal. 8. Mirapex. 9. Ranexa. SOCIAL HISTORY: Never a smoker. Lives in [place]. FAMILY HISTORY: Noncontributory. PHYSICAL EXAMINATION: VITAL SIGNS: She has been afebrile here in the hospital. BP 140/90, heart rate 78, respiratory rate 18, O2 saturation 95% on room air. Does not appear in distress. SKIN: Normal except for the little orifice right above the umbilicus which is a chronic draining sinus, probably related to her infected mesh, residuals, fragments. She has a residual port in the left subclavian location, which now has not been used in many years. No lymphadenopathy. HEENT: Ocular movements conjugate. Oral cavity normal. NECK: Supple. LUNGS: With diffuse faint wheezing. She has diminished breath sounds with inspiratory crackles in the left base. HEART: S1, S2, without murmurs, diminished heart sounds. ABDOMEN: Soft, not tender or distended. No ascites. No bladder distention. EXTREMITIES: Osteoarthrosis in knees and ankles. Trace edema. Pulses 1+ in dorsalis pedis, plantar responses are flexor, no clonus. NEUROLOGIC: Cognitive function appears to be intact. LABORATORY DATA: Followup white cell count 7.4, hemoglobin 9.8, platelets 265 and creatinine 0.79. Albumin 3.0. Previous echocardiogram from May 2019 showed an EF 65%, some diastolic dysfunction, dilated left atrium, moderate tricuspid regurgitation. 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 DISCUSSION: Differential diagnosis includes thromboembolism, cardiomyopathy with diastolic dysfunction. COVID-19 is less likely. A bacterial pneumonia is unlikely. At this point, we recommend CT angiogram, duplex ultrasound of lower and upper extremities particularly in view of the chronic device in her left subclavian location. Job ID: [id number] [facility]
--- NOTE | 2020-04-16 16:47 | CT ---
CTA CHEST WITH CONTRAST: 04/16/20 Axial tomograms obtained following a angio protocol with multiplanar reconstruction and 3D postproces sing. INDICATIONS: Dyspnea with wheezing. Pleural effusions. Chest pain with shortness of breath. FINDINGS: The pulmonary arteries show adequate opacification. No evidence of pulmonary embolus identified. Thoracic aorta is unremarkable with no evidence of dissection. There is cardiomegaly and mild vascular congestion. There is a small pericardial effusion. There are small bilateral pleural effusions and bibasilar atelectasis more prominent involving the le ft lower lobe. No confluent lung infiltrate. Review of the mediastinum reveals evidence of tracheomalacia involving the posterior wall of the trac hea below the larynx with herniation of the esophagus into the posterior trachea which decreases trac heal lumen in the upper chest. Nonspecific mediastinal and hilar lymph nodes. Views through the upper abdomen reveal a mass involving the right adrenal gland measuring 3.0 cm. Den sity is recorded at 4 Hounsfield units which would indicate a benign adenoma although follow-up is re commended given the 3 cm size of this mass. Osseous structures unremarkable. IMPRESSION: 1. No evidence of pulmonary embolus. 2. Cardiomegaly with mild vascular congestion. 3. Small pericardial effusion and bilateral pleural effusions with bibasilar atelectasis more pr ominent on the left. 4. Evidence of tracheomalacia with herniation of the esophagus through the posterior wall of the trachea in the upper chest which does reduce tracheal diameter. This could be symptomatic given hist ory of wheezing. 5. Nonspecific mediastinal and hilar lymph nodes. 6. Right adrenal mass measuring 3 cm. Densities would indicate a benign adenoma. POS: AGW
[2020-04-16 17:52] LABS: Complement-C4 59.3 mg/dL (15-57)
[2020-04-16] MEDS: Opium Tincture 10% (1ml Charge) PO SCH (18:06)
[2020-04-16] MEDS: Acetaminophen 325 MG TAB PO PRN (21:24)
[2020-04-17] MEDS: Furosemide 40 MG/4 ML VIAL SLOW IVP SCH ×2 (06:03→14:19)
[2020-04-17] MEDS: Opium Tincture 10% (1ml Charge) PO SCH ×2 (07:54→17:45)
[2020-04-17] MEDS: Cholestyramine/Aspartame 4 gm Packet PO SCH ×2 (07:54→17:10)
[2020-04-17] MEDS: Lisinopril 2.5 MG TAB PO SCH (08:54)
[2020-04-17] MEDS: Carvedilol 25 MG TAB PO SCH ×2 (08:54→22:15)
[2020-04-17] MEDS: Pregabalin 75 MG CAP PO SCH ×2 (08:55→22:15)
[2020-04-17] MEDS: Saccharomyces boulardii 250 MG CAP PO SCH (08:56)
[2020-04-17] MEDS ORDERED: FLU VACC QS2020-21(65YR UP)/PF 240 MCG/0.7 ML SYRINGE IM ONE (09:00)
--- NOTE | 2020-04-17 13:52 | PDOC.HOSPP ---
- Subjective Encounter Date: 04/17/20 Encounter Time: 09:45 Subjective: breathing better now, no wheezing is able to ambulate better but still gets short winded - Objective Vital Signs & Weight: Vital Signs (12 hours) Temp Pulse Resp BP Pulse Ox 04/17/20 12:02 97.8 F 79 22 H 142/73 H 96 04/17/20 11:26 94 18 93 L 04/17/20 08:54 87 04/17/20 08:32 87 14 100 04/17/20 07:51 98.0 F 76 16 160/74 H 95 04/17/20 05:30 74 16 162/77 H 98 04/17/20 05:26 97 Weight Weight 211 lb 15.944 oz I&O: 04/16/20 04/17/20 04/18/20 06:59 06:59 06:59 Intake Total 634 Balance 634 Result Diagrams: 04/16/20 01:43 04/16/20 01:43 Hospitalist ROS - Medication Medications: Active Medications Generic Name Dose Route Start Last Admin Trade Name Freq PRN Reason Stop Dose Admin Acetaminophen 650 mg 04/16/20 01:22 04/16/20 21:24 Acetaminophen 325 Mg Tab PO 650 mg Q4H PRN Administration Headache/Fever/Mild Pain (1-3) Albuterol/Ipratropium 3 ml 04/16/20 06:30 04/17/20 11:26 Ipratropium/Albuterol Sulfate 3 Ml Neb NEB 3 ml [id number] NATHANAEL Administration Carvedilol 25 mg 04/16/20 09:00 04/17/20 08:54 Carvedilol 25 Mg Tab PO 25 mg BID NATHANAEL Administration Cholestyramine Resin 4 gm 04/17/20 09:00 04/17/20 07:54 Cholestyramine/Aspartame 4 Gm Packet PO 4 gm 0900,1700 NATHANAEL Administration Furosemide 40 mg 04/17/20 06:00 04/17/20 06:03 Furosemide 40 Mg/4 Ml Vial SLOW IVP 40 mg 0600,1400 NATHANAEL Administration Lisinopril 2.5 mg 04/16/20 09:00 04/17/20 08:54 Lisinopril 2.5 Mg Tab PO 2.5 mg DAILY NATHANAEL Administration Opium Tincture 0.6 ml 04/16/20 17:00 04/17/20 07:54 Opium Tincture 10% (1ml Charge) PO 0.6 ml 0900,1700 NATHANAEL Administration Pregabalin 150 mg 04/16/20 09:00 04/17/20 08:55 Pregabalin 75 Mg Cap PO 150 mg BID NATHANAEL Administration Saccharomyces Boulardii 250 mg 04/16/20 09:00 04/17/20 08:56 Saccharomyces Boulardii 250 Mg Cap PO 250 mg DAILY NATHANAEL Administration Sodium Chloride 10 ml 04/16/20 09:00 04/17/20 08:37 Flush - Normal Saline 10 Ml Syringe IVF Not Given Q12HR NATHANAEL - Exam General Appearance: NAD, awake alert Eye: anicteric sclera ENT: no oropharyngeal lesions, moist mucosa Neck: supple, no JVD Heart: RRR, no murmur Respiratory: no wheezes, no rales Gastrointestinal: soft, non-tender, non-distended, normal bowel sounds Extremities: no cyanosis, no edema Neurological: cranial nerve grossly intact, no focal deficits Psychiatric: normal affect, A&O x 3 Hosp A/P (1) Pleural effusion Code(s): J90 - PLEURAL EFFUSION, NOT ELSEWHERE CLASSIFIED Status: Acute (2) Asthma exacerbation Code(s): J45.901 - UNSPECIFIED ASTHMA WITH (ACUTE) EXACERBATION Status: Acute Qualifiers: Asthma severity: moderate (3) Anxiety and depression Code(s): F41.9 - ANXIETY DISORDER, UNSPECIFIED; F32.9 - MAJOR DEPRESSIVE DISORDER, SINGLE EPISODE, UNSPECIFIED Status: Chronic (4) Chronic diarrhea Code(s): K52.9 - NONINFECTIVE GASTROENTERITIS AND COLITIS, UNSPECIFIED Status: Chronic (5) Dyslipidemia Code(s): E78.5 - HYPERLIPIDEMIA, UNSPECIFIED Status: Chronic (6) Hypertension Code(s): I10 - ESSENTIAL (PRIMARY) HYPERTENSION Status: Chronic Qualifiers: (7) Lupus Code(s): M32.9 - SYSTEMIC LUPUS ERYTHEMATOSUS, UNSPECIFIED Status: Chronic Qualifiers: Systemic lupus erythematosus type: unspecified (8) Paroxysmal a-fib Code(s): I48.0 - PAROXYSMAL ATRIAL FIBRILLATION Status: Chronic (9) Physical deconditioning Code(s): R53.81 - OTHER MALAISE Status: Chronic (10) Pulmonary hypertension Code(s): I27.2 - OTHER SECONDARY PULMONARY HYPERTENSION * DO NOT USE * Status: Suspected - Plan d/w , and . EGD in 2019 showed normal esophagus. Will get repeat CT chest in am. echo for LV and RV pressures, gentle diuresis for b/l pl effusions, likely has lupus flare up with serositis or from low albumin. Prior ef was normal in may. C3, 4 are slightly higher than normal might have underlying sleep apnea with increasing right heart pressures? pt sees for lupus, has been in remission for 3 yrs now per patient, prior to which was on chemo/immunotherapy with multiple organ involvement including heart/brain per patient PT nova has finished full course of ertapenem/meropenem for resistant klebsiella uti recently (04/12). has alb of 3, no proteinuria on UA, likely has poor absorption with chronic diarrhea from prior bowel resections/cholecystectomy etc. continue home meds coreg, eliquis, lisinopril, lyrica, florastor, questran. still has mediport which was used for chemo infusion for lupus in the past covid pcr is -ve
[2020-04-17] MEDS: methylPREDNISolone Sod Succ 40 MG VIAL IVP SCH ×2 (14:21→22:15)
[2020-04-17] MEDS: Acetaminophen 325 MG TAB PO PRN (17:09)
[2020-04-18] MEDS: Acetaminophen 325 MG TAB PO PRN (03:54)
[2020-04-18] MEDS: Furosemide 40 MG/4 ML VIAL SLOW IVP SCH (06:08)
[2020-04-18] MEDS: methylPREDNISolone Sod Succ 40 MG VIAL IVP SCH (06:14)
[2020-04-18] MEDS ORDERED: Sodium Chloride 0.9% 10 ML ONE (07:30)
[2020-04-18] MEDS: Opium Tincture 10% (1ml Charge) PO SCH (08:04)
[2020-04-18] MEDS: Cholestyramine/Aspartame 4 gm Packet PO SCH (08:04)
[2020-04-18 08:05] VITALS: BP 145/83
[2020-04-18] MEDS: Carvedilol 25 MG TAB PO SCH (08:05)
[2020-04-18] MEDS: Lisinopril 2.5 MG TAB PO SCH (08:06)
--- NOTE | 2020-04-18 08:55 | CT ---
CT chest noncontrast HISTORY: Chest pain. Dyspnea. Pneumonia. COMPARISON: 04/16/2020. FINDINGS: Minimal bilateral pleural fluid and pericardial fluid remaining. Mild residual left depende nt atelectasis. No lobar consolidation. No pneumothorax. Lack of contrast limits evaluation of the soft tissues. Nonspecific, nonenlarged med iastinal lymph nodes are again demonstrated. Heart is enlarged. Old left lateral rib fractures. Bilateral shoulder prostheses. Left sided implante d central venous port. Within the partially visualized upper abdomen, the 2.8 cm right adrenal adenoma is apparent. Small he patic cysts. Postoperative changes anterior abdominal wall. IMPRESSION : Significant improvement. Minimal residual bilateral pleural fluid and left basilar atelectasis. No new abnormalities are demonstrated.
[2020-04-18] MEDS: Pregabalin 75 MG CAP PO SCH (10:43)
[2020-04-18] MEDS: Saccharomyces boulardii 250 MG CAP PO SCH (10:43)
[2020-04-18 12:15] VITALS: TEMP 98.1
--- NOTE | 2020-04-18 16:31 | DIS ---
DATE OF ADMISSION: 04/15/2020 DATE OF DISCHARGE: 04/18/2020 DISCHARGE DISPOSITION: To home. 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 PROCEDURES DONE DURING HOSPITALIZATION: CT angio chest done on 04/16/2020 showed bilateral pleural effusions. No evidence of PE. Cardiomegaly was seen. 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 Echo with 2D Doppler showed ejection fraction of 60% to 65%, diastolic dysfunction, moderately enlarged RV cavity, moderately enlarged right atrium. CT chest done this morning without contrast shows mild residual bilateral pleural fluid. Her previously noted esophageal herniation into the posterior trachea has resolved. Blood cultures x2, no growth. H and H 10 and 31, platelet count 265 with 78% neutrophils, MCV 88, white count of 7.4. BUN 12, creatinine 0.7, albumin 3.0, BNP 159. Complement C3 196, which is slightly higher than upper limit of 193. Complement C4 59, which is slightly higher than upper limit of 57 mg/dL. UA did not reveal any proteinuria. COVID 19 PCR was not detected on 04/16/2020. DISCHARGE MEDICATIONS: 1. Cholestyramine 4 g twice daily. 2. Duloxetine 30 mg daily. 3. Lisinopril 2.5 mg daily. 4. Lyrica 150 mg twice daily. 5. Opium Tincture 10% 0.6 mL twice daily p.r.n. 6. Protonix 40 mg twice daily. 7. Topiramate 25 mg twice daily. 8. Vitamin B12 1000 mcg intramuscular once every two weeks. 9. Sucralfate 1 g four times daily. 10. Carvedilol 25 mg twice daily. 11. Eliquis 5 mg twice daily. 12. Florastor 250 mg daily. 13. K-Dur 20 mEq p.o. daily. This is taken p.r.n. with Lasix as needed. 14. Lasix 40 mg daily p.r.n. for edema. 15. Prednisone 10 mg twice daily for 2 days, then daily for 3 days and to discontinue. 16. Albuterol inhaler 90 mcg q.6 hourly p.r.n. ALLERGIES: MYRBETRIQ, NSAIDS, VALSARTAN, VANCOMYCIN. DISCHARGE PLAN: The patient to follow up with Dr. Grant, wig sales consultant in 2 weeks; her primary care physician Dr. Gtz in 1 week; Dr. Michael, marketing assistant manager in 1 week. BRIEF COURSE DURING HOSPITALIZATION: Patient initially came to ER on the with complaints of shortness of breath and wheezing. The patient was found to be in asthma exacerbation. She was placed on steroids and nebulizers. Initial CT angio chest done showed no evidence of PE, but showed bilateral pleural effusions and possible herniation of the esophagus into posterior trachea at the thoracic inlet. I have had discussions with Dr. Michael and Dr. Dalal regarding the findings of esophageal herniation. Per Dr. Michael, this was due to asthma exacerbation and a repeat CT chest done without contrast showed resolution of the same with the patient breathing comfortably. Her C3-C4 levels are slightly above upper limits of normal and the patient likely has some smoldering lupus findings with bilateral pleural effusions. She is advised to follow up with Dr. Grant, her primary wig sales consultant. Her asthma has completely resolved. There are no signs of pneumonia. She has been ambulating and eating well prior to discharge. The patient still has some exertional shortness of breath. She weighs around 211 pounds. The patient was counseled with regard to healthy eating and losing weight. She also has some snoring during sleep per reports from her and has been advised to have outpatient sleep study with Dr. Michael with referral from primary care physician. Please note I have seen and examined the patient on the day of discharge. Job ID: [id number]
--- NOTE | 2020-04-19 23:18 | PQF ---
CLINICAL DOCUMENTATION CLARIFICATION FORM: Dear : Alem Montes Date / Time: 04/19/20 2621 Please exercise your independent, professional judgment in responding to the clarification form. Clinical indicators are provided on the bottom of this form for your review Please check appropriate box(es): [ ] Empirically treating Gram Negative Pneumonia [ ] Empirically treating Anaerobic Pneumonia [ ] Simple Pneumonia [ ] Pneumonia of unknown etiology [ x ] No Pneumonia [ ] Other diagnosis [ ] Unable to determine Physician Signature: Date/Time: For continuity of documentation, please document condition throughout progress notes and discharge summary. Thank You. To be completed by CDI/Coding staff for physician review: Present Clinical Indicators - Signs / Symptoms / Labs Results and Location in Medical Record [x] WBC 7.7, Plt count 322, Neutrophils 78.7, Band 2, Lactic acid 0.9 Laboratory 04/15 [x] Chest X-ray: Bilateral pleural efffusion, left greater than right with adjacent left basilar subsegmental atelectasis and/pr infiltrate. Correlate for Pneumonia Imaging Dr De Dios 04/15 [x] BP 158/112, Pulse 92, Resp 22, Temp 98.7 Vital signs 04/15 [x] Found to have an infiltrates on the left lung base ED notes p8 04/15 [x] healthcare associated pneumonia ED notes p8 04/15 [x] Complaining of SOB H&P p1 Ritchie-Jimmie 04/15 [x] Cxr consistent with Pneumonia, infiltrate on LLL H&P p4 Ritchie-Jimmie 04/15 Present Risk Factors Results and Location in Medical Record [x] 74 year-old Female H&P p1 Ritchie-Jimmie 04/15 [x] HTN H&P p1 Ritchie-Jimmie 04/15 [x] CHF H&P p1 Ritchie-Jimmie 04/15 [x] Asthma exacerbation H&P p4 Ritchie-Jimmie 04/15 Present Treatments Results and Location in Medical Record [x] IV Azithromax 500 mg JUN 28 [x] IV Levaquin 750 mg JUN 28 [x] IV Meropenem 2 gm JUN 28 [x] O2 supplementation H&P p4 Ritchie-Jimmie 04/15 [x] ID consult Consult Dr Ren 04/15 CDS/Marketing Planner Signature: Amada Gonsalves Phone #: ext [phone] Date/Time: 04/19/20 2318 This is a permanent part of the Medical Record [facility]
--- NOTE | 2020-04-19 23:19 | PQF ---
CLINICAL DOCUMENTATION CLARIFICATION FORM: Dear : Alem Montes Date / Time: 04/19/202318 Please exercise your independent, professional judgment in responding to the clarification form. Clinical indicators are provided on the bottom of this form for your review Please check appropriate box(es): DIASTOLIC HEART FAILURE: A. ACUITY [ x ] Acute [ ] Acute on Chronic [ ] Chronic [ ] Other diagnosis [ ] Unable to determine In addition, please specify: Present on Admission (POA): [x ] Yes [ ] No [ ] Unable to determine Physician Signature: Date/Time: For continuity of documentation, please document condition throughout progress notes and discharge summary. Thank You. To be completed by CDI/Coding staff for physician review: Present Clinical Indicators - Signs / Symptoms / Labs Results and Location in Medical Record [x] BNP 159.1, Troponin 0.010 Laboratory 04/15 [x] Chest X-ray: Bilateral pleural efffusion, left greater than right with adjacent left basilar subsegmental atelectasis and/or infiltrate. Imaging Dr De Dios 04/15 [x] Echocardiogram: EF 60-65, probable diastolc dysfunction Procedure 04/17 Dr Morocho [x] BP 158/112, Pulse 92, Resp 22, Temp 98.7 Vital signs 04/15 [x] Found to have an infiltrates on the left lung base ED notes p8 04/15 [x] Complaining of SOB H&P p1 Ritchie-Jimmie 04/15 [x] Pleural effusion H&P p1 Ritchie-Jimmie 04/15 [x] CHF with diastolic Dysfunction Consult Dr Ren 04/15 Present Risk Factors Results and Location in Medical Record [x] 74 year-old Female H&P p1 Ritchie-Jimmie 04/15 [x] HTN H&P p1 Ritchie-Jimmie 04/15 [x] CHF H&P p1 Ritchie-Jimmie 04/15 [x] Asthma exacerbation H&P p4 Ritchie-Jimmie 04/15 Present Treatments Results and Location in Medical Record [x] IV Lasix 40 mg JUN 28 [x] Coreg 25 mg oral JUN 28 [x] O2 supplementation H&P p4 Ritchie-Jimmie 04/15 CDS/Health Outreach Worker Signature: Amada Gonsalves Phone #: [phone] Date/Time: 04/19/202318 This is a permanent part of the Medical Record [facility]
--- NOTE | 2020-04-20 16:40 | EKG ---
Test Reason : Blood Pressure : / mmHG Vent. Rate : 082 BPM Atrial Rate : 082 BPM P-R Int : 196 ms QRS Dur : 066 ms QT Int : 364 ms P-R-T Axes : 065 026 031 degrees QTc Int : 425 ms Sinus rhythm with Premature atrial complexes Otherwise normal ECG Confirmed by LETITIA Cast, RUTHANN ([id number]), fan mail editor TOAN MCDUFFIE ([id number]) on 04/20/2020 4:40:08 PM Referred By: Confirmed By:RUTHANN DONG M.D.
[2020-04-21 16:35] LABS: ANA Symphony (Qualitative) Negative (Negative); ANA Symphony (Quantitative) 0.2 Ratio (< 0.7 Negative); dsDNA IgG Antibody 1.2 IU/mL (<10 Negative)
== END 2020-04-18 14:23 | disposition home or self-care (01) | DRG 202 ==
LOC: ERS 18:28 → OBSVTOIN 22:45 → ERHOLD 22:45 → 3SE 22:48 → 3SW 04-17 18:04 → 3SE 04-18 07:11
PROVIDERS: ADMIT Internal Medicine; ATTEND Internal Medicine
DX: J45.41 Moderate persistent asthma with (acute) exacerbation (principal); I50.33 Acute on chronic diastolic (congestive) heart failure; I11.0 Hypertensive heart disease with heart failure; Z20.828 Contact with and (suspected) exposure to other viral communicable diseases; M32.9 Systemic lupus erythematosus, unspecified; F41.9 Anxiety disorder, unspecified; F32.9 Major depressive disorder, single episode, unspecified; E78.5 Hyperlipidemia, unspecified; I48.0 Paroxysmal atrial fibrillation; I27.20 Pulmonary hypertension, unspecified; K44.9 Diaphragmatic hernia without obstruction or gangrene; H35.30 Unspecified macular degeneration; Z96.612 Presence of left artificial shoulder joint; Z96.611 Presence of right artificial shoulder joint; M79.7 Fibromyalgia; E66.9 Obesity, unspecified; K52.9 Noninfective gastroenteritis and colitis, unspecified; Z90.49 Acquired absence of other specified parts of digestive tract; Z90.710 Acquired absence of both cervix and uterus; Z68.34 Body mass index [BMI] 34.0-34.9, adult; Z87.440 Personal history of urinary (tract) infections; Z79.899 Other long term (current) drug therapy; Z79.01 Long term (current) use of anticoagulants; R06.02 Shortness of breath
CPT/HCPCS: 36415; 71045; 71250; 71275; 80053; 81003; 81015; 83605; 83880; 84145; 84484; 85007; 85025; 85027; 86038; 86160; 86225; 87040; 87635; 93005; 93306; 94640; 96365; 96367; J0456; J1940; J1956; J2020; J2185; J2920; J3490; J7620; Q9967; U0002; U0003

== ENCOUNTER 2020-11-07 05:53 | Day surgery (SDC) | payer MEDICARE ==
[2020-11-06 12:02] VITALS: BMI 33.3
[2020-11-07] MEDS ORDERED: Fentanyl 100 MCG/2 ML VIAL ONE ×2 (06:55→08:34)
[2020-11-07] MEDS ORDERED: Lidocaine 1% PF 5 ML VIAL ONE (07:33)
[2020-11-07] MEDS ORDERED: Dexamethasone 20 MG/5 ML VIAL ONE (07:33)
[2020-11-07] MEDS ORDERED: Ondansetron PF 4 MG/2 ML Vial ONE (07:33)
[2020-11-07] MEDS ORDERED: PHENYLEPHRINE-NS 100 MCG/ML 10 ML SYRINGE ONE (07:33)
[2020-11-07] MEDS ORDERED: PROPOFOL 200 MG/20 ML VIAL ONE (07:33)
[2020-11-07] MEDS ORDERED: Glycopyrrolate 0.2 MG/ML 5 ML SYRINGE ONE (07:33)
[2020-11-07] MEDS ORDERED: Lidocaine 1% w/Epinephrine 1:100K 20 ML VIAL ONE (07:50)
[2020-11-07] MEDS ORDERED: Bupivacaine 0.25% HCL 30 ML VIAL ONE (07:50)
[2020-11-07] MEDS ORDERED: HYDROcodone/Acetaminophen 5/325 mg Tablet ONE (09:28)
== END 2020-11-07 10:14 | disposition home or self-care (01) ==
LOC: SDC 05:53
PROVIDERS: ATTEND Surgery
PROC: 0JB80ZZ Excision of Abdomen Subcutaneous Tissue and Fascia, Open Approach (ICD-10-PCS; principal; 2020-11-07)
DX: S31.109A Unspecified open wound of abdominal wall, unspecified quadrant without penetration into peritoneal cavity, initial encounter (principal); M79.5 Residual foreign body in soft tissue; I42.0 Dilated cardiomyopathy; I13.0 Hypertensive heart and chronic kidney disease with heart failure and stage 1 through stage 4 chronic kidney disease, or unspecified chronic kidney disease; N18.30 Chronic kidney disease, stage 3 unspecified; I50.32 Chronic diastolic (congestive) heart failure; M79.7 Fibromyalgia; J45.909 Unspecified asthma, uncomplicated; K21.9 Gastro-esophageal reflux disease without esophagitis; I48.91 Unspecified atrial fibrillation; I25.10 Atherosclerotic heart disease of native coronary artery without angina pectoris; M32.9 Systemic lupus erythematosus, unspecified; Z86.73 Personal history of transient ischemic attack (TIA), and cerebral infarction without residual deficits; Z79.01 Long term (current) use of anticoagulants; Z79.899 Other long term (current) drug therapy; Z88.6 Allergy status to analgesic agent; Z88.8 Allergy status to other drugs, medicaments and biological substances
CPT/HCPCS: 87070; 87205; 88305; J0690; J1100; J2405; J2704; J3010; S0020

== ENCOUNTER 2021-08-28 13:22 | Outpatient (CLI) | payer MEDICARE ==
[2021-08-28 14:54] LABS: Hemoglobin 11.4 g/dL (12.0-15.5); Mean Corpuscular HGB CONC 29.9 g/dL (32.0-36.0); Mean Corpuscular Hemoglobin 28.1 pg (27.0-33.0); Mean Corpuscular Volume 94.1 fl (81.6-98.3); Mean Platelet Volume 11.1 fl (7.4-10.4); Platelet Count 229 10x3/uL (150-450); RBC Distribution Width 16.8 % (11.5-14.5); Red Blood Cell (RBC) Count 4.05 10x6/uL (3.90-5.03); White Blood Cell (WBC) Count 6.8 10x3/uL (3.5-10.5)
[2021-08-28 15:19] LABS: Anion Gap 12 mmol/L (10-20); BUN (Urea Nitrogen) 18 mg/dL (9.8-20.1); Calc. Creatinine Clearance 0 mL/min (70-130); Calcium 9.3 mg/dL (7.8-10.44); Carbon Dioxide 26 mmol/L (23-31); Chloride 106 mmol/L (98-107); Glucose 82 mg/dL (83-110); Potassium 4.3 mmol/L (3.5-5.1); Sodium 140 mmol/L (136-145)
[2021-08-28 22:46] LABS: SARS-CoV-2 PCR by NAA Not Detected (NotDetected)
== END 2021-08-28 13:23 | disposition home or self-care (01) ==
LOC: LABBT 13:22
PROVIDERS: ATTEND Surgery
DX: Z01.812 Encounter for preprocedural laboratory examination (principal); T81.89XA Other complications of procedures, not elsewhere classified, initial encounter; Z20.822 Contact with and (suspected) exposure to COVID-19
CPT/HCPCS: 80048; 85027; U0003; U0005

== ENCOUNTER 2021-09-01 07:26 | Day surgery (SDC) | payer MEDICARE ==
[2021-08-28 12:07] VITALS: BMI 34.6
[2021-09-01] MEDS ORDERED: fentaNYL Citrate/PF 100 MCG/2 ML SYRINGE ONE (10:46)
[2021-09-01] MEDS ORDERED: SUGAMMADEX SODIUM 200 MG/2 ML VIAL ONE (10:47)
[2021-09-01] MEDS ORDERED: Famotidine/PF 20 mg/2ml Vial ONE (10:47)
[2021-09-01] MEDS ORDERED: ceFAZolin (BATCH) 2 GM/100 ML BAG ONE (10:50)
[2021-09-01] MEDS ORDERED: Lidocaine 1% PF 5 ML VIAL ONE (11:01)
[2021-09-01] MEDS ORDERED: Metoclopramide HCl 10 MG/2 ML VIAL ONE (11:01)
[2021-09-01] MEDS ORDERED: Ketorolac Tromethamine 30 MG/ML VIAL ONE (11:01)
[2021-09-01] MEDS ORDERED: PROPOFOL 200 MG/20 ML VIAL ONE (11:01)
[2021-09-01] MEDS ORDERED: Ondansetron PF 4 MG/2 ML Vial ONE (11:01)
[2021-09-01] MEDS ORDERED: Bupivacaine 0.25% 10 ML VIAL ONE (11:15)
[2021-09-01] MEDS ORDERED: Fentanyl 100 MCG/2 ML VIAL ONE (11:46)
== END 2021-09-01 13:19 | disposition home or self-care (01) ==
LOC: SDC 07:26
PROVIDERS: ATTEND Surgery
PROC: 0HB5XZZ Excision of Chest Skin, External Approach (ICD-10-PCS; principal; 2021-09-01)
DX: S21.102A Unspecified open wound of left front wall of thorax without penetration into thoracic cavity, initial encounter (principal); I11.0 Hypertensive heart disease with heart failure; I50.32 Chronic diastolic (congestive) heart failure; I42.0 Dilated cardiomyopathy; M32.9 Systemic lupus erythematosus, unspecified; M79.7 Fibromyalgia; J45.909 Unspecified asthma, uncomplicated; K21.9 Gastro-esophageal reflux disease without esophagitis; Z86.14 Personal history of Methicillin resistant Staphylococcus aureus infection; Z86.73 Personal history of transient ischemic attack (TIA), and cerebral infarction without residual deficits; Z79.01 Long term (current) use of anticoagulants; Z79.899 Other long term (current) drug therapy; Z88.1 Allergy status to other antibiotic agents; Z88.6 Allergy status to analgesic agent; Z88.8 Allergy status to other drugs, medicaments and biological substances
CPT/HCPCS: 87070; 87205; 88305; 88312; J0690; J1885; J2405; J2704; J2765; J3010; S0020; S0028

== ENCOUNTER 2021-10-08 12:55 | Outpatient (CLI) | payer MEDICARE | END 2021-10-08 12:56 | disposition home or self-care (01) | LOC: LABBT 12:55 | PROVIDERS: ATTEND Thoracic Surgery (Cardiothoracic Vascular Surgery) | DX: T14.8XXA Other injury of unspecified body region, initial encounter (principal); Z20.822 Contact with and (suspected) exposure to COVID-19 | CPT/HCPCS: U0003; U0005 ==

== ENCOUNTER 2021-10-13 09:34 | Day surgery (SDC) | payer MEDICARE ==
[2021-10-09 10:04] VITALS: BMI 34.4
[2021-10-13] MEDS ORDERED: Levofloxacin 500 mg/D5W 100 ml Premix Bag ONE (11:04)
[2021-10-13] MEDS ORDERED: CEFAZOLIN 2 GM VIAL ONE (11:04)
[2021-10-13] MEDS ORDERED: Sodium Chloride 0.9% 100 ML ONE (11:04)
[2021-10-13] MEDS ORDERED: fentaNYL Citrate/PF 100 MCG/2 ML SYRINGE ONE (11:24)
[2021-10-13] MEDS ORDERED: PROPOFOL 200 MG/20 ML VIAL ONE (11:30)
[2021-10-13] MEDS ORDERED: ePHEDrine 50 MG/ML VIAL ONE (11:30)
[2021-10-13] MEDS ORDERED: Lidocaine 1% PF 5 ML VIAL ONE (11:30)
[2021-10-13] MEDS ORDERED: Ondansetron PF 4 MG/2 ML Vial ONE (11:30)
[2021-10-13] MEDS ORDERED: Dexamethasone 20 MG/5 ML VIAL ONE (11:30)
[2021-10-13] MEDS ORDERED: Bupivacaine PF 0.5% 30 ML VIAL ONE (11:40)
[2021-10-13] MEDS ORDERED: EPINEPHrine 1 MG/ML AMP ONE (11:40)
[2021-10-13] MEDS ORDERED: Dexamethasone 4 mg/ml Vial ONE (11:40)
[2021-10-13] MEDS ORDERED: Midazolam HCl 2 mg/2 ml Vial ONE (12:00)
[2021-10-13] MEDS ORDERED: Fentanyl 100 MCG/2 ML VIAL ONE (13:41)
[2021-10-13] MEDS ORDERED: HYDROcodone/Acetaminophen 5/325 mg Tablet ONE (14:35)
== END 2021-10-13 15:10 | disposition home or self-care (01) ==
LOC: SDC 09:34
PROVIDERS: ATTEND Thoracic Surgery (Cardiothoracic Vascular Surgery)
PROC: 03JY0ZZ Inspection of Upper Artery, Open Approach (ICD-10-PCS; principal; 2021-10-13)
PROC: 05JY0ZZ Inspection of Upper Vein, Open Approach (ICD-10-PCS; 2021-10-13)
DX: M79.5 Residual foreign body in soft tissue (principal); I13.0 Hypertensive heart and chronic kidney disease with heart failure and stage 1 through stage 4 chronic kidney disease, or unspecified chronic kidney disease; N18.30 Chronic kidney disease, stage 3 unspecified; I50.32 Chronic diastolic (congestive) heart failure; M32.9 Systemic lupus erythematosus, unspecified; M79.7 Fibromyalgia; J45.909 Unspecified asthma, uncomplicated; K21.9 Gastro-esophageal reflux disease without esophagitis; I48.91 Unspecified atrial fibrillation; Z86.14 Personal history of Methicillin resistant Staphylococcus aureus infection; Z86.73 Personal history of transient ischemic attack (TIA), and cerebral infarction without residual deficits; Z79.01 Long term (current) use of anticoagulants; Z79.2 Long term (current) use of antibiotics; Z79.899 Other long term (current) drug therapy; Z88.1 Allergy status to other antibiotic agents; Z88.8 Allergy status to other drugs, medicaments and biological substances
CPT/HCPCS: 37799; 76000; 87070; 87075; 87102; 87205; 87206; C1776; J0171; J0690; J1100; J1956; J2250; J2405; J2704; J3010; J3490; S0020

== ENCOUNTER 2022-02-19 13:09 | Outpatient (CLI) | payer MEDICARE | END 2022-02-19 13:10 | disposition home or self-care (01) | LOC: BICMAMMO 13:09 | PROVIDERS: ATTEND Internal Medicine | DX: Z12.31 Encounter for screening mammogram for malignant neoplasm of breast (principal); Z13.820 Encounter for screening for osteoporosis; Z78.0 Asymptomatic menopausal state; N63.15 Unspecified lump in the right breast, overlapping quadrants; M85.851 Other specified disorders of bone density and structure, right thigh; M85.852 Other specified disorders of bone density and structure, left thigh; Z80.3 Family history of malignant neoplasm of breast | CPT/HCPCS: 77063; 77067; 77080 ==

== ENCOUNTER 2022-03-04 10:22 | Outpatient (CLI) | payer MEDICARE | END 2022-03-04 10:23 | disposition home or self-care (01) | LOC: BICULT 10:22 | PROVIDERS: ATTEND Internal Medicine | DX: N63.15 Unspecified lump in the right breast, overlapping quadrants (principal) ==

== ENCOUNTER 2022-03-19 11:08 | Inpatient (IN) | payer MEDICARE ==
[2022-03-19 11:38] LABS: #Eosinphils 0.1 thou/uL (0.0-0.7); #Lymphocytes 1.5 thou/uL (1.20-3.40); #Monocytes 0.6 thou/uL (0.11-0.59); #Neutrophils 5.2 thou/uL (1.40-6.50); %Basophils 0.5 % (0.0-1.0); %Eosinophils 1.6 % (0.0-10.0); %Lymphocytes 19.7 % (21.0-51.0); %Monocytes 7.6 % (0.0-10.0); %Neutrophils 70.6 % (42.0-75.0); Hemoglobin 12.7 g/dL (12.0-16.0); Mean Corpuscular HGB CONC 30.7 g/dL (32.0-36.0); Mean Corpuscular Hemoglobin 26.7 pg (27.0-31.0); Mean Corpuscular Volume 87.2 fl (78.0-98.0); Mean Platelet Volume 9.6 fL (7.4-10.4); Platelet Count 220 10x3/uL (130-400); RBC Distribution Width 17.6 % (11.5-14.5); Red Blood Cell (RBC) Count 4.75 mill/uL (4.20-5.40); White Blood Cell (WBC) Count 7.4 10x3/uL (4.8-10.8)
[2022-03-19 12:08] LABS: ALT (SGPT) 18 U/L (8-55); AST (SGOT) 18 U/L (5-34); Albumin 3.8 g/dL (3.4-4.8); Alkaline Phosphatase 98 U/L (40-110); Anion Gap 12 mmol/L (10-20); BUN (Urea Nitrogen) 20 mg/dL (9.8-20.1); Bilirubin, Total 0.2 mg/dL (0.2-1.2); Calc. Creatinine Clearance 0 mL/min (70-130); Calcium 10.2 mg/dL (7.8-10.44); Carbon Dioxide 26 mmol/L (23-31); Chloride 107 mmol/L (98-107); Estimated GFR 57; Globulin 3.7 g/dL (2.4-3.5); Glucose 103 mg/dL (83-110); Lipase 19 U/L (8-78); Potassium 4.1 mmol/L (3.5-5.1); Protein, Total 7.5 g/dL (5.8-8.1); Sodium 138 mmol/L (136-145)
[2022-03-19] MEDS ORDERED: Aspirin Chewable 81 MG TAB ONE (13:03)
[2022-03-19] MEDS ORDERED: Nitroglycerin 0.4 MG TAB (25 Tab Bottle) SL PRN ×2 (14:18→17:52)
[2022-03-19] MEDS ORDERED: Acetaminophen 325 MG TAB PO PRN (14:18)
[2022-03-19] MEDS ORDERED: Ondansetron PF 4 MG/2 ML Vial IVP PRN ×2 (14:18→17:55)
[2022-03-19] MEDS ORDERED: predniSONE 20 MG TAB PO SCH (14:45)
[2022-03-19 15:09] LABS: Troponin I Less than 0.010 ng/mL (< 0.028)
[2022-03-19] MEDS ORDERED: Carvedilol 25 MG TAB PO SCH ×2 (17:00→18:00)
[2022-03-19 17:11] VITALS: BMI 33.5
[2022-03-19] MEDS: Opium Tincture 10% (1ml Charge) PO PRN (18:28)
[2022-03-19 18:56] LABS: Troponin I Less than 0.010 ng/mL (< 0.028)
[2022-03-19] MEDS ORDERED: Ketorolac Tromethamine 30 MG/ML VIAL IVP SCH (19:15)
[2022-03-19] MEDS: Pregabalin 50 MG CAP PO SCH (19:47)
[2022-03-19] MEDS: Topiramate 25 MG TAB PO SCH (19:48)
[2022-03-19] MEDS: DULoxetine 60 MG CAP PO SCH (19:48)
[2022-03-19] MEDS: Ciprofloxacin 500 MG TAB PO SCH (19:49)
[2022-03-19] MEDS: Apixaban 5 MG TAB PO SCH (19:49)
[2022-03-19] MEDS ORDERED: Ciprofloxacin 500 MG TAB PO SCH (20:00)
[2022-03-19] MEDS: Arformoterol 15 MCG/2 ML NEB NEB SCH (20:29)
[2022-03-19] MEDS ORDERED: Apixaban 5 MG TAB PO SCH (21:00)
[2022-03-19] MEDS ORDERED: DULoxetine 60 MG CAP PO SCH (21:00)
[2022-03-19] MEDS ORDERED: Topiramate 25 MG TAB PO SCH (21:00)
[2022-03-19] MEDS ORDERED: Pregabalin 50 MG CAP PO SCH (21:00)
[2022-03-19] MEDS: Cholestyramine/Aspartame 4 gm Packet PO SCH (21:09)
[2022-03-19] MEDS ORDERED: Cholestyramine/Aspartame 4 gm Packet PO SCH (22:00)
[2022-03-20 05:56] LABS: Anion Gap 13 mmol/L (10-20); BUN (Urea Nitrogen) 19 mg/dL (9.8-20.1); Calc. Creatinine Clearance 91 mL/min (70-130); Calcium 9.2 mg/dL (7.8-10.44); Carbon Dioxide 21 mmol/L (23-31); Chloride 109 mmol/L (98-107); Estimated GFR 75; Glucose 116 mg/dL (83-110); Potassium 4.7 mmol/L (3.5-5.1); Sodium 138 mmol/L (136-145)
[2022-03-20] MEDS: Ciprofloxacin 500 MG TAB PO SCH ×2 (06:02→21:12)
[2022-03-20] MEDS: Opium Tincture 10% (1ml Charge) PO PRN ×2 (06:37→18:39)
[2022-03-20] MEDS: Arformoterol 15 MCG/2 ML NEB NEB SCH ×2 (07:39→18:48)
[2022-03-20] MEDS: Pregabalin 50 MG CAP PO SCH ×2 (08:53→21:11)
[2022-03-20] MEDS: Carvedilol 25 MG TAB PO SCH ×2 (08:53→17:09)
[2022-03-20] MEDS: Aspirin Chewable 81 MG TAB PO SCH (08:54)
[2022-03-20] MEDS: Topiramate 25 MG TAB PO SCH ×2 (08:54→21:12)
[2022-03-20] MEDS: Apixaban 5 MG TAB PO SCH ×2 (08:54→21:12)
[2022-03-20] MEDS: predniSONE 20 MG TAB PO SCH (08:54)
[2022-03-20] MEDS: Lisinopril 2.5 MG TAB PO SCH (08:55)
[2022-03-20] MEDS: DULoxetine 30 MG CAP PO SCH (08:55)
[2022-03-20] MEDS ORDERED: Lisinopril 2.5 MG TAB PO SCH (09:00)
[2022-03-20] MEDS ORDERED: Aspirin Chewable 81 MG TAB PO SCH (09:00)
[2022-03-20] MEDS ORDERED: predniSONE 20 MG TAB PO SCH (09:00)
[2022-03-20] MEDS ORDERED: DULoxetine 30 MG CAP PO SCH (09:00)
[2022-03-20] MEDS: Cholestyramine/Aspartame 4 gm Packet PO SCH ×2 (10:19→22:25)
[2022-03-20] MEDS: Ketorolac Tromethamine 30 MG/ML VIAL IVP SCH ×3 (12:10→23:57)
[2022-03-20] MEDS: Acetaminophen 325 MG TAB PO PRN (17:17)
[2022-03-20] MEDS: DULoxetine 60 MG CAP PO SCH (21:11)
[2022-03-21 05:18] LABS: #Eosinphils 0.1 thou/uL (0.0-0.7); #Lymphocytes 1.4 thou/uL (1.20-3.40); #Monocytes 0.5 thou/uL (0.11-0.59); #Neutrophils 5.1 thou/uL (1.40-6.50); %Basophils 0.5 % (0.0-1.0); %Eosinophils 1.1 % (0.0-10.0); %Lymphocytes 19.3 % (21.0-51.0); %Monocytes 7.2 % (0.0-10.0); %Neutrophils 71.9 % (42.0-75.0); Hemoglobin 10.9 g/dL (12.0-16.0); Mean Corpuscular HGB CONC 30.1 g/dL (32.0-36.0); Mean Corpuscular Volume 86.4 fl (78.0-98.0); Mean Platelet Volume 9.6 fL (7.4-10.4); Platelet Count 191 10x3/uL (130-400); RBC Distribution Width 17.3 % (11.5-14.5); White Blood Cell (WBC) Count 7.2 10x3/uL (4.8-10.8)
[2022-03-21 05:38] LABS: Anion Gap 10 mmol/L (10-20); BUN (Urea Nitrogen) 26 mg/dL (9.8-20.1); Calc. Creatinine Clearance 81 mL/min (70-130); Calcium 8.9 mg/dL (7.8-10.44); Carbon Dioxide 22 mmol/L (23-31); Chloride 110 mmol/L (98-107); Estimated GFR 65; Glucose 89 mg/dL (83-110); Potassium 3.8 mmol/L (3.5-5.1); Sodium 138 mmol/L (136-145)
[2022-03-21] MEDS: Ketorolac Tromethamine 30 MG/ML VIAL IVP SCH ×4 (06:15→23:57)
[2022-03-21] MEDS: Ciprofloxacin 500 MG TAB PO SCH ×2 (06:15→19:28)
[2022-03-21] MEDS: Opium Tincture 10% (1ml Charge) PO PRN (07:41)
[2022-03-21] MEDS: Lisinopril 2.5 MG TAB PO SCH (08:28)
[2022-03-21] MEDS: Apixaban 5 MG TAB PO SCH ×2 (08:28→20:58)
[2022-03-21] MEDS: Pregabalin 50 MG CAP PO SCH ×2 (08:28→20:58)
[2022-03-21] MEDS: Aspirin Chewable 81 MG TAB PO SCH (08:29)
[2022-03-21] MEDS: Topiramate 25 MG TAB PO SCH ×2 (08:29→21:08)
[2022-03-21] MEDS: Carvedilol 25 MG TAB PO SCH ×2 (08:29→17:07)
[2022-03-21] MEDS: DULoxetine 30 MG CAP PO SCH (08:29)
[2022-03-21] MEDS: predniSONE 20 MG TAB PO SCH (08:29)
[2022-03-21] MEDS: Cholestyramine/Aspartame 4 gm Packet PO SCH ×2 (10:18→22:10)
[2022-03-21] MEDS: Arformoterol 15 MCG/2 ML NEB NEB SCH ×2 (10:26→20:27)
[2022-03-21] MEDS: Acetaminophen 325 MG TAB PO PRN (17:07)
[2022-03-21] MEDS ORDERED: Arformoterol 15 MCG/2 ML NEB ONE (18:10)
[2022-03-21] MEDS: DULoxetine 60 MG CAP PO SCH (20:58)
[2022-03-22] MEDS: Ciprofloxacin 500 MG TAB PO SCH (05:09)
[2022-03-22] MEDS: Acetaminophen 325 MG TAB PO PRN (05:11)
[2022-03-22] MEDS ORDERED: hydrALAZINE 10 MG TAB PO PRN (05:37)
[2022-03-22] MEDS: Ketorolac Tromethamine 30 MG/ML VIAL IVP SCH ×2 (06:00→11:27)
[2022-03-22] MEDS: Arformoterol 15 MCG/2 ML NEB NEB SCH (07:45)
[2022-03-22] MEDS: Lisinopril 2.5 MG TAB PO SCH (08:40)
[2022-03-22] MEDS: Pregabalin 50 MG CAP PO SCH (08:41)
[2022-03-22] MEDS: Carvedilol 25 MG TAB PO SCH (08:42)
[2022-03-22] MEDS: predniSONE 20 MG TAB PO SCH (08:42)
[2022-03-22] MEDS: Apixaban 5 MG TAB PO SCH (08:42)
[2022-03-22] MEDS: DULoxetine 30 MG CAP PO SCH (08:42)
[2022-03-22] MEDS: Aspirin Chewable 81 MG TAB PO SCH (08:42)
[2022-03-22 08:44] VITALS: BP 142/85
[2022-03-22 08:45] VITALS: TEMP 97.7
[2022-03-22] MEDS: Topiramate 25 MG TAB PO SCH (08:53)
[2022-03-22] MEDS: Opium Tincture 10% (1ml Charge) PO PRN (09:38)
[2022-03-22] MEDS: Cholestyramine/Aspartame 4 gm Packet PO SCH (11:28)
== END 2022-03-22 16:00 | disposition home or self-care (01) | DRG 202 ==
LOC: ERS 11:08 → 2SW 14:18 → ERS 16:47 → OBSVTOIN 03-21 14:26 → MSONC 03-21 19:06
PROVIDERS: ADMIT Internal Medicine; ATTEND Internal Medicine
DX: J45.21 Mild intermittent asthma with (acute) exacerbation (principal); J18.9 Pneumonia, unspecified organism; I50.32 Chronic diastolic (congestive) heart failure; I42.0 Dilated cardiomyopathy; I11.0 Hypertensive heart disease with heart failure; M79.7 Fibromyalgia; I48.0 Paroxysmal atrial fibrillation; K21.9 Gastro-esophageal reflux disease without esophagitis; K52.9 Noninfective gastroenteritis and colitis, unspecified; I77.6 Arteritis, unspecified; I25.10 Atherosclerotic heart disease of native coronary artery without angina pectoris; I34.0 Nonrheumatic mitral (valve) insufficiency; R07.89 Other chest pain; I27.20 Pulmonary hypertension, unspecified; T81.89XA Other complications of procedures, not elsewhere classified, initial encounter; Z86.73 Personal history of transient ischemic attack (TIA), and cerebral infarction without residual deficits; Z88.1 Allergy status to other antibiotic agents; Z88.8 Allergy status to other drugs, medicaments and biological substances; Z79.01 Long term (current) use of anticoagulants; Z90.49 Acquired absence of other specified parts of digestive tract; Z90.710 Acquired absence of both cervix and uterus; Z82.49 Family history of ischemic heart disease and other diseases of the circulatory system
CPT/HCPCS: 36415; 71045; 80048; 80053; 83690; 83880; 84443; 84484; 85025; 85652; 86140; 87633; 93005; 93306; 94640; 94760; 96374; 96376; 97139; G0378; J1885; J7512; J7620; U0003; U0005

== ENCOUNTER 2022-07-21 12:49 | Emergency (ER) | payer MEDICARE ==
[2022-07-21 13:14] LABS: #Eosinphils 0.1 thou/uL (0.0-0.7); #Monocytes 0.4 thou/uL (0.11-0.59); #Neutrophils 4.7 thou/uL (1.40-6.50); %Basophils 0.6 % (0.0-1.0); %Eosinophils 1.5 % (0.0-10.0); %Lymphocytes 15.6 % (21.0-51.0); %Monocytes 6.4 % (0.0-10.0); %Neutrophils 75.9 % (42.0-75.0); Hemoglobin 11.6 g/dL (12.0-16.0); Mean Corpuscular HGB CONC 30.7 g/dL (32.0-36.0); Mean Corpuscular Hemoglobin 28.7 pg (27.0-31.0); Mean Corpuscular Volume 93.5 fl (78.0-98.0); Mean Platelet Volume 9.2 fL (7.4-10.4); Platelet Count 210 10x3/uL (130-400); RBC Distribution Width 19.2 % (11.5-14.5); Red Blood Cell (RBC) Count 4.05 mill/uL (4.20-5.40); White Blood Cell (WBC) Count 6.1 10x3/uL (4.8-10.8)
[2022-07-21 13:28] LABS: INR-International Normal Ratio 1.2; PTT 30.4 sec (22.9-36.1); Prothrombin Time 15.2 sec (12.0-14.7)
[2022-07-21 13:41] LABS: ALT (SGPT) 13 U/L (8-55); AST (SGOT) 17 U/L (5-34); Albumin 3.6 g/dL (3.4-4.8); Alkaline Phosphatase 85 U/L (40-110); Anion Gap 10 mmol/L (10-20); BUN (Urea Nitrogen) 15 mg/dL (9.8-20.1); Bilirubin, Total 0.4 mg/dL (0.2-1.2); Calc. Creatinine Clearance 0 mL/min (70-130); Calcium 9.1 mg/dL (7.8-10.44); Carbon Dioxide 24 mmol/L (23-31); Chloride 110 mmol/L (98-107); Estimated GFR 62; Globulin 3.4 g/dL (2.4-3.5); Glucose 111 mg/dL (83-110); Sodium 140 mmol/L (136-145)
== END 2022-07-21 18:14 | disposition home or self-care (01) ==
LOC: ERS 12:49
DX: I82.722 Chronic embolism and thrombosis of deep veins of left upper extremity (principal); I11.0 Hypertensive heart disease with heart failure; I50.9 Heart failure, unspecified; I48.91 Unspecified atrial fibrillation; Z79.01 Long term (current) use of anticoagulants; Z79.899 Other long term (current) drug therapy
CPT/HCPCS: 36415; 71260; 80053; 83880; 85025; 85610; 85730

== ENCOUNTER 2022-07-30 12:53 | Outpatient (CLI) | payer MEDICARE | END 2022-07-30 12:54 | disposition home or self-care (01) | LOC: BICMAMMO 12:53 | PROVIDERS: ATTEND Internal Medicine | DX: N63.21 Unspecified lump in the left breast, upper outer quadrant (principal) | CPT/HCPCS: 76642; 77065; G0279 ==

== ENCOUNTER 2023-06-24 12:11 | Outpatient (CLI) | payer MEDICARE | END 2023-06-24 12:12 | disposition home or self-care (01) | LOC: BICMAMMO 12:11 | PROVIDERS: ATTEND Internal Medicine | DX: Z12.31 Encounter for screening mammogram for malignant neoplasm of breast (principal); Z80.3 Family history of malignant neoplasm of breast | CPT/HCPCS: 77063; 77067 ==

== ENCOUNTER 2024-02-21 12:50 | Outpatient (CLI) | payer MEDICARE | END 2024-02-21 12:51 | disposition home or self-care (01) | LOC: BICMAMMO 12:50 | DX: M85.851 Other specified disorders of bone density and structure, right thigh (principal); M81.0 Age-related osteoporosis without current pathological fracture | CPT/HCPCS: 77080 ==